=== PATIENT | female | born 1975 | race Caucasian/White ===

== ENCOUNTER 2017-07-15 10:42 | Emergency (ER) | payer BC, SELFPAY ==
[2017-07-15 11:05] VITALS: BP 143/85; PULSE 106; RESP 18; TEMP 36.6; O2SAT 96; BMI 44.3
[2017-07-15 11:33] VITALS: BP 143/85; PULSE 106; RESP 18; TEMP 36.6; O2SAT 96; BMI 44.3
[2017-07-15 12:09] VITALS: BP 143/85; PULSE 106; RESP 18; TEMP 36.6; O2SAT 96; BMI 44.3
[2017-07-15 12:29] LABS: Basophils # 0.1 K/mm3 (0-0.2); Basophils % 0.6 % (0.1-2.0); Eosinophils # 0.4 K/mm3 (0.0-0.4); Eosinophils % 3.6 % (0.1-12.0); Hematocrit 42.2 % (37.0-47.0); Hemoglobin 14.2 g/dL (12.2-16.2); Lymphocytes # 3.2 K/mm3 (0.7-4.5); Lymphocytes % 33.1 K/mm3 (10-50); Mean Corpuscular HGB Conc 33.7 g/dL (31.8-35.4); Mean Corpuscular Hemoglobin 30.9 pg (27.0-31.2); Mean Corpuscular Volume 91.6 fl (81-99); Mean Platelet Volume 9.2 fl (7.4-10.4); Monocytes # 0.5 K/mm3 (0.1-1.0); Neutrophils # 5.6 K/mm3 (1.8-7.8); Neutrophils % 57.8 % (37.0-80.0); Platelet Count 225 K/mm3 (142-424); Red Cell Distribution Width 13.5 % (11.5-17.5); White Blood Count 9.7 K/mm3 (4.8-10.8)
--- NOTE | 2017-07-15 12:32 | HMH.EDNECK ---
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 The time I documented below is in addition to time spent performing reported procedures but includes the following listed in this critical care notation. Medical Decision Making Vital Signs: 07/15/17 11:05 07/15/17 11:33 07/15/17 12:09 Temperature 97.8 F 97.8 F 97.8 F Temperature Source Temporal Artery Scan Temporal Artery Scan Oral Pulse Rate [Left Radial] 106 H 106 H 106 H Respiratory Rate 18 18 18 Blood Pressure [Left Arm] 143/85 143/85 143/85 Blood Pressure Mean [Left Arm] 104 104 104 Blood Pressure Source [Left Arm] Automatic Cuff Automatic Cuff Automatic Cuff Blood Pressure Position [Left Arm] Sitting Sitting Sitting 02 Sat by Pulse Oximetry 96 96 96 Oxygen Delivery Method Room Air Room Air Room Air - Lab Data Lab results reviewed: Yes: I reviewed the patient's lab results. Lab Results 07/15/17 12:15: WBC 9.7, RBC 4.60, Hgb 14.2, Hct 42.2, MCV 91.6, MCH 30.9, MCHC 33.7, RDW 13.5, Plt Count 225, MPV 9.2, Neut % (Auto) 57.8, Lymph % (Auto) 33.1, [place] % (Auto) 5.0, Eos % (Auto) 3.6, Baso % (Auto) 0.6, Neut # (Auto) 5.6, Lymph # (Auto) 3.2, [place] # (Auto) 0.5, Eos # (Auto) 0.4, Baso # (Auto) 0.1 07/15/17 12:15: Sodium 140, Potassium 3.3 L, Chloride 102, Carbon Dioxide 30, Anion Gap 11.3, BUN 13, Creatinine 0.81, Estimated Creat Clear 95, Estimated GFR 78, Est GFR ( Amer) 94, Glucose 154 H, Calcium 9.1, Total Bilirubin 0.4, AST 25, ALT 35, Alkaline Phosphatase 108, Total Protein 7.4, Albumin 3.6, Globulin 3.8 H, Albumin/Globulin Ratio 0.9 L Result diagrams: 07/15/17 12:15 07/15/17 12:15 Orders (Tests/Meds): ED MEDICATIONS Discontinued Medications Generic Name Dose Route Start Last Admin Trade Name Nona PRN Reason Stop Dose Admin Ketorolac Tromethamine 30 mg 07/15/17 12:32 07/15/17 13:34 Toradol 30mg/Ml Vial IV 07/15/17 12:33 30 mg ONCE ONE Administration - Hood Inquiry Pt receiving controlled substance: No Medical Decision Making Narrative: On reassessment, the patient's pain is completely relieved after administration of Toradol IM. Neck Pain/Injury HPI - General Chief Complaint: Neck Pain/Injury Stated Complaint: stiff neck headache Time Seen by Provider: 07/15/17 12:05 Source of Information: Patient Limitations: No Limitations Description of Symptoms (Recalled from ER Triage Doc. by RN): PT STATES THAT THURSDAY SHE WOKE UP WITH STIFF NECK AND A HEADACHE. NOW SHE REPORTS THAT HER PAIN IS A 12/10 AND SHE HAS NEVER HAD PAIN LIKE THIS BEFORE IN THE BACK OF HER HEAD TO THE RIGHT. PT STATES NO INJURY . - History of Present Illness HPI Narrative: Patient reports a history of chronic neck pain, for which she has seen her PCP as of last week. It is Dr. Dupree put her on a muscle relaxer which has helped somewhat. Eyes any acute trauma. She states that her pain was worse this morning, and she took one half of a muscle relaxer and some ibuprofen at about 2:00 this morning. Denies any fever, denies any rash, denies any acute neurological symptoms. He is mainly right-sided and is positional in nature with no weakness numbness or tingling. No photophobia. No change in location of her neck and posterior scalp pain. MD complaint: neck pain Onset (ago): month(s) Quality: other (spasm) Relieving factors: medication OTC/prescribed Exacerbating factors: movement of neck Ass
--- NOTE | 2017-07-15 12:36 | ED_ITS ---
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 The time I documented below is in addition to time spent performing reported procedures but includes the following listed in this critical care notation. Medical Decision Making Vital Signs: 07/15/17 11:05 07/15/17 11:33 07/15/17 12:09 Temperature 97.8 F 97.8 F 97.8 F Temperature Source Temporal Artery Scan Temporal Artery Scan Oral Pulse Rate [Left Radial] 106 H 106 H 106 H Respiratory Rate 18 18 18 Blood Pressure [Left Arm] 143/85 143/85 143/85 Blood Pressure Mean [Left Arm] 104 104 104 Blood Pressure Source [Left Arm] Automatic Cuff Automatic Cuff Automatic Cuff Blood Pressure Position [Left Arm] Sitting Sitting Sitting 02 Sat by Pulse Oximetry 96 96 96 Oxygen Delivery Method Room Air Room Air Room Air - Lab Data Lab results reviewed: Yes: I reviewed the patient's lab results. Lab Results 07/15/17 12:15: WBC 9.7, RBC 4.60, Hgb 14.2, Hct 42.2, MCV 91.6, MCH 30.9, MCHC 33.7, RDW 13.5, Plt Count 225, MPV 9.2, Neut % (Auto) 57.8, Lymph % (Auto) 33.1 , [place] % (Auto) 5.0, Eos % (Auto) 3.6, Baso % (Auto) 0.6, Neut # (Auto) 5.6, Lymph # (Auto) 3.2, [place] # (Auto) 0.5, Eos # (Auto) 0.4, Baso # (Auto) 0.1 07/15/17 12:15: Sodium 140, Potassium 3.3 L, Chloride 102, Carbon Dioxide 30, Anion Gap 11.3, BUN 13, Creatinine 0.81, Estimated Creat Clear 95, Estimated GFR 78, Est GFR ( Amer) 94, Glucose 154 H, Calcium 9.1, Total Bilirubin 0.4, AST 25, ALT 35, Alkaline Phosphatase 108, Total Protein 7.4, Albumin 3.6, Globulin 3.8 H, Albumin/Globulin Ratio 0.9 L Result diagrams: 07/15/17 12:15 07/15/17 12:15 Orders (Tests/Meds): ED MEDICATIONS Discontinued Medications Generic Name Dose Route Start Last Admin Trade Name Nona PRN Reason Stop Dose Admin Ketorolac Tromethamine 30 mg 07/15/17 12:32 07/15/17 13:34 Toradol 30mg/Ml Vial IV 07/15/17 12:33 30 mg ONCE ONE Administration - Hood Inquiry Pt receiving controlled substance: No Medical Decision Making Narrative: On reassessment, the patient's pain is completely relieved after administration of Toradol IM. Neck Pain/Injury HPI - General Chief Complaint: Neck Pain/Injury Stated Complaint: stiff neck headache Time Seen by Provider: 07/15/17 12:05 Source of Information: Patient Limitations: No Limitations Description of Symptoms (Recalled from ER Triage Doc. by RN): PT STATES THAT THURSDAY SHE WOKE UP WITH STIFF NECK AND A HEADACHE. NOW SHE REPORTS THAT HER PAIN IS A 12/10 AND SHE HAS NEVER HAD PAIN LIKE THIS BEFORE IN THE BACK OF HER HEAD TO THE RIGHT. PT STATES NO INJURY . - History of Present Illness HPI Narrative: Patient reports a history of chronic neck pain, for which she has seen her PCP as of last week. It is Dr. Dupree put her on a muscle relaxer which has helped somewhat.
[2017-07-15 12:58] LABS: Alanine Aminotransferase 35 U/L (12-78); Albumin Level 3.6 gm/dL (3.4-5.0); Albumin/Globulin Ratio 0.9 (1.1-1.8); Alkaline Phosphatase 108 U/L (46-116); Anion Gap 11.3 mEq/L (5-15); Aspartate Amino Transferase 25 U/L (15-37); Bilirubin,Total 0.4 mg/dL (0.2-1.0); Blood Urea Nitrogen 13 mg/dL (7-18); Calcium 9.1 mg/dL (8.5-10.1); Carbon Dioxide 30 mmol/L (21.0-32.0); Chloride 102 mmol/L (98-107); Creatinine Clearance Estimated 95 mL/min (0-300); Creatinine,Serum 0.81 mg/dL (0.55-1.02); Estimated Glomerular Filt Rate 78 ml/min (>60); GFR (African American) 94 ML/MIN (>60); Globulin 3.8 gm/dl (1.3-3.2); Glucose 154 mg/dL (74-106); Potassium 3.3 mmoL/L (3.5-5.1); Sodium 140 mmol/L (136-145); Total Protein,Serum 7.4 gm/dL (6.4-8.2)
[2017-07-15 15:31] VITALS: BP 143/85; PULSE 100; RESP 18; O2SAT 98
== END 2017-07-15 15:34 | disposition home or self-care (01) ==
LOC: UTC 11:18 → ER 11:58
PROVIDERS: Emergency Provider Emergency Medicine; Family Provider Internal Medicine; PCP Internal Medicine
DX: M54.2 Cervicalgia (principal); E11.9 Type 2 diabetes mellitus without complications
CPT/HCPCS: 80053; 85025; 96374; 99282; 99284

== ENCOUNTER → 2017-09-28 14:32 | Outpatient (CLI) | payer BC, SELFPAY ==
--- NOTE | 2017-09-28 14:41 | XR_ITS ---
EXAM: XR lumbar spine min 4V HISTORY: Pain following injury ITS.REASON: S/P FALL THIS AM,LOW BACK PAIN ORDERING PHYSICIAN: Jose Dupree PATIENT AGE: 42 years COMPARISON: None FINDINGS: Normal alignment. No fracture or dislocation. No lytic or blastic change. No significant degenerative change. The disc spaces are preserved. Minimal bony hypertrophic change involves the endplate at L4 IMPRESSION: No acute finding
--- NOTE | 2017-09-28 14:42 | XR_ITS ---
XR coccyx 2V CLINICAL INDICATION: Pain following injury ITS.REASON: S/P ALL THIS AM,LOW BACK PAIN ORDERING PHYSICIAN: Jose Dupree PATIENT AGE: 42 years COMPARISON: None FINDINGS: No obvious fracture, dislocation, or other significant anomalies. IMPRESSION: Negative coccyx
== END ==
PROVIDERS: PCP Internal Medicine; Visit Provider Internal Medicine
DX: M54.5 Low back pain (principal)
CPT/HCPCS: 72110; 72220

== ENCOUNTER 2017-12-04 23:58 | Observation (INO) ==
[2017-12-05 00:37] LABS: Basophils # 0.1 K/mm3 (0-0.2); Basophils % 0.6 % (0.1-2.0); Eosinophils # 0.4 K/mm3 (0.0-0.4); Eosinophils % 2.5 % (0.1-12.0); Hematocrit 50.2 % (37.0-47.0); Hemoglobin 16.1 g/dL (12.2-16.2); Lymphocytes # 2.9 K/mm3 (0.7-4.5); Mean Corpuscular HGB Conc 32.1 g/dL (31.8-35.4); Mean Corpuscular Hemoglobin 29.7 pg (27.0-31.2); Mean Corpuscular Volume 92.6 fl (81-99); Mean Platelet Volume 8.7 fl (7.4-10.4); Monocytes # 0.8 K/mm3 (0.1-1.0); Monocytes % 4.7 % (1.7-9.3); Neutrophils # 11.8 K/mm3 (1.8-7.8); Neutrophils % 74.2 % (37.0-80.0); Platelet Count 348 K/mm3 (142-424); Red Blood Count 5.42 M/mm3 (4.20-5.40); Red Cell Distribution Width 13.3 % (11.5-17.5)
[2017-12-05 00:51] LABS: Anion Gap 15.2 mEq/L (5-15); Blood Urea Nitrogen 24 mg/dL (7-18); Carbon Dioxide 27 mmol/L (21.0-32.0); Chloride 100 mmol/L (98-107); Glucose 182 mg/dL (74-106); Potassium 3.2 mmoL/L (3.5-5.1); Sodium 139 mmol/L (136-145)
[2017-12-05 01:18] LABS: Lymphocytes % 22 % (10-50); Monocytes % 5 % (2-9); Neutrophils % 73 % (42-76); Total Cells Counted 100
[2017-12-05 01:19] LABS: RBC Morphology Normal; Stomatocytes 1+
--- NOTE | 2017-12-05 01:36 | Emergency Department Note ---
ED Disposition Clinical Impression: Near syncope, Renal insufficiency Disposition: Admitted as Observation Condition on Discharge: Good Referrals: Jose Dupree [Primary Care Provider] - - Critical Care Critical Care Time: No Attestation: On 12/04/17, the high probability of a clinically significant, sudden or life threatening deterioration of the following system(s) required my full and direct attention, intervention and personal management. The time I documented below is in addition to time spent performing reported procedures but includes the following listed in this critical care notation. Medical Decision Making - Medical Records Medical records reviewed: Yes: I reviewed the patient's medical records. - Hood Inquiry Pt receiving controlled substance: No Vital Signs: 12/05/17 00:02 Temperature 98.1 F Temperature Source Oral Pulse Rate [Right Brachial] 118 H Respiratory Rate 16 Blood Pressure [Right Arm] 92/65 Blood Pressure Mean [Right Arm] 74 02 Sat by Pulse Oximetry 98 Oxygen Delivery Method Room Air - Lab Data Lab results reviewed: Yes: I reviewed the patient's lab results. Lab Results 12/05/17 00:22: WBC 16.0 H, RBC 5.42 H, Hgb 16.1, Hct 50.2 H, MCV 92.6, MCH 29.7 , MCHC 32.1, RDW 13.3, Plt Count 348, MPV 8.7, Neut % (Auto) 74.2, Lymph % (Auto ) 18.0, [place] % (Auto) 4.7, Eos % (Auto) 2.5, Baso % (Auto) 0.6, Neut # (Auto) 11.8 H, Lymph # (Auto) 2.9, [place] # (Auto) 0.8, Eos # (Auto) 0.4, Baso # (Auto) 0.1, Total Counted 100, Neutrophils % (Manual) 73, Lymphocytes % (Manual) 22, Monocytes % (Manual) 5, Platelet Estimate Normal, RBC Morphology Normal, Stomatocytes 1+ 12/05/17 00:22: Sodium 139, Potassium 3.2 L, Chloride 100, Carbon Dioxide 27, Anion Gap 15.2 H, BUN 24 H, Creatinine 2.18 H, Estimated Creat Clear 35, Estimated GFR 25 L, Est GFR ( Amer) 30 L, Glucose 182 H, Troponin I < 0.02 12/05/17 01:55: Urine Color Yellow, Urine Appearance Sl cloudy, Urine pH 5.5, Ur Specific [place] 1.020, Urine Protein 1+, Urine Glucose (UA) Negative, Urine Ketones Negative, Urine Blood Negative, Urine Nitrate Negative, Urine Bilirubin Negative, Urine Urobilinogen 0.2, Ur Leukocyte Esterase Negative Result diagrams: 12/05/17 00:22 12/05/17 00:22 Orders (Tests/Meds): ED MEDICATIONS Generic Name Dose Route Start Last Admin Trade Name Freq PRN Reason Stop Dose Admin Sodium Chloride 1,000 mls @ 999 mls/hr 12/05/17 01:30 12/05/17 01:18 Sod Chlor 0.9% 1000ml Bag IV 12/05/17 02:30 999 mls/hr .[id number] GARRICK Administration Discontinued Medications Generic Name Dose Route Start Last Admin Trade Name Freq PRN Reason Stop Dose Admin Sodium Chloride 1,000 mls @ 999 mls/hr 12/05/17 00:30 12/05/17 00:44 Sod Chlor 0.9% 1000ml Bag IV 12/05/17 01:30 999 mls/hr .Q1H1M GARRICK Administration ORDERS Category Date Time Status XR chest 2V Stat Exams 12/05/17 00:22 Taken UA [Urinalysis and Microscopic] Stat Lab 12/05/17 01:55 Results - Radiology Data #1 Image(s): Chest Image Reviewed: Yes I reviewed the patient's radiology image Preliminary Findings: Normal/NAD - ECG Data Tracing #1 I reviewed this ECG and interpreted as documented below: Arrhythmias present: sinus tach Ischemic changes: non-specific ST-T wave changes Tracing #2 I reviewed this ECG and interpreted as documented below: Normal Sinus Rhythm: Yes Ischemic changes: non-specific ST-T wave changes Dizzy HPI - General Chief Complaint: Dizziness Stated Complaint: Low BP;Heart Racing Time Seen by Provider: 12/05/17 00:30 Mode of Arrival: Ambulatory Source of Information: Patient, Medical Record Limitations: No Limitations Description of Symptoms (Recalled from ER Triage Doc. by RN): Pt was a work when she states she has a episode where everything went black, and she nearly passed out. Her BP was taken at work and was low, pt states her BP is usually high. Pt states she is dizzy, and denies CP or SOA. - History of Present Illness HPI Narrative: pt had not felt well and at work was having dizzy spells with near syncope and had low bp w/o loc or chest pain complaint: lightheadedness, near syncope Onset (ago): hour(s) Timing: waxing/waning Description: lightheadedness, near-syncope History of similar episodes: No History of trauma: No Severity: moderate Relieving factors: nothing Associated symptoms: denies other symptoms - Related Data Home Medications Medication Instructions Recorded Confirmed Lisinopril [Lisinopril 40mg Tablet] 40 mg PO DAILY 12/05/17 12/05/17 Metformin HCl [Metformin 500mg 500 mg PO DAILY 12/05/17 12/05/17 Tablet] Potassium 99 mg PO DAILY 12/05/17 12/05/17 Venlafaxine HCl [Effexor Xr] 150 mg PO DAILY 12/05/17 12/05/17 hydroCHLOROthiazide 12.5 mg PO DAILY 12/05/17 12/05/17 [Hydrochlorothiazide 12.5mg Tab] Previous Rx's Medication Instructions Recorded Naproxen [EC-Naprosyn] 500 mg PO BID PRN #20 tablet. 07/15/17 Allergies Allergy/AdvReac Type Severity Reaction Status Date / Time No Known Allergies Allergy Verified 12/05/17 00:10 [facility] History I have reviewed the patient's past medical history: Yes 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: Reports:: Diabetes Mellitus Type 2 - Social History Smoking Status: Light tobacco smoker Alcohol Intake: never - Psychiatric History Expresses thoughts of harming self/others: None Suicide Plan Description: No Plan ROS Obtained: Yes All systems reviewed & no additional complaints - Constitutional Constitutional: Denies fever(s) - Eyes Eyes: Denies change in vision - ENT Ears, Nose, Mouth, and Throat: Denies sore throat - Cardiovascular Cardiovascular: Denies chest pain at rest, Reports lightheadedness, Denies palpitations, Reports rapid heart rate - Respiratory Respiratory: No cough - Gastrointestinal Gastrointestingal: Denies: abdominal pain - Genitourinary Female Genitourinary: Denies hematuria - Musculoskeletal Musculoskeletal: Denies joint pain, Denies joint swelling - Integumentary/Breasts Skin/Breast: Denies rash - Neurologic Neurologic: Denies headache(s), Denies seizure-like activity Physical Exam - General General appearance: in no apparent distress - Head Head exam: normocephalic - Eye Eye exam: Present: PERRL, EOMI. Absent: scleral icterus - ENT ENT exam: Present: mucous membranes dry - Neck Neck exam: Present: trachea midline - Respiratory Respiratory exam: Absent: respiratory distress - Cardiovascular Cardiovascular exam: Present: regular rate, systolic murmur - Abdominal Exam Abdominal exam: Present: soft - Extremities Exam Extremities exam: Absent: tenderness - Neurological Exam Neurological exam: Present: alert, oriented X3, CN II-XII intact - Psychiatric Psychiatric exam: Present: normal affect - Skin Skin exam: Absent: rash
[2017-12-05 02:01] LABS: Microscopic, Urine URINE MICROSCOPIC (MICROSCOPIC)
[2017-12-05 02:02] LABS: Appearance,Urine SL CLOUDY (Clear); Bilirubin,Urine Negative (Negative); Blood, Urine Negative (Negative); Color,Urine YELLOW (Yellow); Glucose,Urine (UA) Negative (Negative); Ketones,Urine Negative (Negative); PH,Urine 5.5 (5.0-8.5); Protein,Urine 1+ (Negative)
[2017-12-05 02:03] LABS: Leukocyte Esterase,Urine Negative (Negative); Urobilinogen,Urine 0.2 EU/dl (0.2)
[2017-12-05 02:36] LABS: Chol/HDL Ratio 7.3 (1-3.5); Cholesterol 235 mg/dL (140-200); HDL Cholesterol 32 mg/dL (29-89)
[2017-12-05 02:37] LABS: Bacteria,Urine 2+ /lpf; RBC,Urine Occasional #/hpf (0-3); Squamous Epithelial Cell,Urine 20-50 #/hpf (0-5); WBC,Urine Occasional #/hpf (0-3)
[2017-12-05 02:37] LABS: Triglycerides 419 mg/dL (30-200)
[2017-12-05 02:46] LABS: Albumin Level 3.8 gm/dL (3.4-5.0); Bilirubin,Direct 0.1 mg/dL (0.0-0.2); Bilirubin,Indirect 0.3 mg/dL (0.0-0.9); Bilirubin,Total 0.4 mg/dL (0.2-1.0); T4 (Thyroxine) 11.8 ug/dl (4.7-13.3); Thyroid Stimulating Hormone 9.63 uIU/ml (0.358-3.740); Total Protein,Serum 8.4 gm/dL (6.4-8.2)
[2017-12-05 06:21] LABS: Basophils # 0.1 K/mm3 (0-0.2); Basophils % 0.6 % (0.1-2.0); Eosinophils # 0.4 K/mm3 (0.0-0.4); Eosinophils % 2.9 % (0.1-12.0); Hematocrit 45.2 % (37.0-47.0); Hemoglobin 14.6 g/dL (12.2-16.2); Lymphocytes # 3.7 K/mm3 (0.7-4.5); Lymphocytes % 26.4 K/mm3 (10-50); Mean Corpuscular HGB Conc 32.3 g/dL (31.8-35.4); Mean Corpuscular Hemoglobin 30.1 pg (27.0-31.2); Mean Corpuscular Volume 93.1 fl (81-99); Mean Platelet Volume 8.6 fl (7.4-10.4); Monocytes # 0.6 K/mm3 (0.1-1.0); Monocytes % 4.1 % (1.7-9.3); Neutrophils # 9.1 K/mm3 (1.8-7.8); Platelet Count 294 K/mm3 (142-424); Red Blood Count 4.85 M/mm3 (4.20-5.40); Red Cell Distribution Width 13.3 % (11.5-17.5); White Blood Count 13.8 K/mm3 (4.8-10.8)
--- NOTE | 2017-12-05 06:31 | H&P/Discharge Summary ---
General - General Admission date:: 12/05/17 Discharge date: 12/05/17 *Admission Date: 12/04/17 *Chief complaint: Weakness and low blood pressure *History of present illness: 42-year-old white female was at work yesterday at the [employer] when she began to feel poorly, felt somewhat dizzy and noticed that her blood pressure was lower than it typically is in the 110 range. She continue to work but became increasingly dizzy and fatigued, the occupational health and safety officer at her workplace took her blood pressure again and she was hypotensive in the high 80s low 90s. She was brought to the emergency department where she was noticed to have hypokalemia, renal insufficiency and low blood pressure. Otherwise exam and labs were unremarkable except for minimal leukocytosis. She was admitted to hospital for IV fluids and her blood pressure medicine has been held. [facility] History I have reviewed the patient's past medical history: Yes 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: Reports:: Diabetes Mellitus Type 2, Hypertension Denies:: Cancer, Diabetes Mellitus Type 1, Internal Pacemaker, MRSA Other Surgeries: No: Pacemaker Amputation: No Fractures: Yes - *Social History Educational Level: Completed High School Smoking Status: Light tobacco smoker Tobacco Type: cigarettes # Packs/Day (cigarettes): 1 Alcohol Intake: never Occupational Status: employed Housing: house Household Members: spouse - Psychiatric History Expresses thoughts of harming self/others: None Suicide Plan Description: No Plan *Family Hx:: Cancer, Diabetes, Heart Attack Review of Systems - Review of Systems Review of systems:: pertinent systems reviewed and negative unless documented below Overall patient has negative review of systems except for weakness and dizziness. Denies cardiac or pulmonary symptoms Denies GI symptoms except for mild nausea. No vomiting or diarrhea. Does have occasional heartburn. 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 - *Neurologic Denies headache(s), Denies seizure-like activity Exam Vital signs and Labs for Last 24 Hours: Temp Pulse Resp BP Pulse Ox 97.4 F L 74 18 129/73 100 12/05/17 04:34 12/05/17 04:34 12/05/17 04:34 12/05/17 04:34 12/05/17 04:34 Laboratory Results - last 24 hr 12/05/17 00:20: Total Bilirubin 0.4, Direct Bilirubin 0.1, Indirect Bilirubin 0.3, AST 24, ALT 31, Alkaline Phosphatase 111, Total Protein 8.4 H, Albumin 3.8 , TSH 9.63 H, Thyroxine (T4) 11.8 12/05/17 00:20: Hemoglobin A1c 6.5 12/05/17 00:20: Triglycerides 419 H, Cholesterol 235 H, HDL Cholesterol 32, Cholesterol/HDL Ratio 7.3 H 12/05/17 00:22: WBC 16.0 H, RBC 5.42 H, Hgb 16.1, Hct 50.2 H, MCV 92.6, MCH 29.7 , MCHC 32.1, RDW 13.3, Plt Count 348, MPV 8.7, Neut % (Auto) 74.2, Lymph % (Auto ) 18.0, [place] % (Auto) 4.7, Eos % (Auto) 2.5, Baso % (Auto) 0.6, Neut # (Auto) 11.8 H, Lymph # (Auto) 2.9, [place] # (Auto) 0.8, Eos # (Auto) 0.4, Baso # (Auto) 0.1, Total Counted 100, Neutrophils % (Manual) 73, Lymphocytes % (Manual) 22, Monocytes % (Manual) 5, Platelet Estimate Normal, RBC Morphology Normal, Stomatocytes 1+ 12/05/17 00:22: Sodium 139, Potassium 3.2 L, Chloride 100, Carbon Dioxide 27, Anion Gap 15.2 H, BUN 24 H, Creatinine 2.18 H, Estimated Creat Clear 35, Estimated GFR 25 L, Est GFR ( Amer) 30 L, Glucose 182 H, Troponin I < 0.02 12/05/17 01:55: Urine Color Yellow, Urine Appearance Sl cloudy, Urine pH 5.5, Ur Specific [place] 1.020, Urine Protein 1+, Urine Glucose (UA) Negative, Urine Ketones Negative, Urine Blood Negative, Urine Nitrate Negative, Urine Bilirubin Negative, Urine Urobilinogen 0.2, Ur Leukocyte Esterase Negative, Urine RBC Occasional, Urine WBC Occasional, Ur Squamous Epith Cells 20-50, Urine Bacteria 2+, Hyaline Casts 5-10 12/05/17 02:50: Troponin I < 0.02 I & O for Last 24 hours: Intake & Output 12/02/17 12/03/17 12/04/17 12/05/17 11:59 11:59 11:59 11:59 Intake Total 177 / 177 Balance 177 / 177 Weight 294 lb 7 oz Narrative: Patient is pink, alert, oropharynx clear, lungs clear, heart rate regular. Abdomen soft and nontender. No edema, clubbing or cyanosis. Neurologic exam intact including cranial nerves in her extremity power. Hospital Course Hospital Course: Patient was admitted overnight, IV fluids were given, antihypertensives were held. This morning she is doing very nicely. Has no complaints. Wishes to go home. Plan will be to discharge her home if labs this morning have improved. We will recommend holding HCTZ and having close follow-up with her primary care motion pictures cartoonist early next week. Results Labs on day of discharge: Labs from last 24 hours 12/05/17 12/05/17 12/05/17 02:50 01:55 00:22 WBC RBC Hgb Hct MCV MCH MCHC RDW Plt Count MPV Neut % (Auto) Lymph % (Auto) [place] % (Auto) Eos % (Auto) Baso % (Auto) Neut # (Auto) Lymph # (Auto) [place] # (Auto) Eos # (Auto) Baso # (Auto) Total Counted Neutrophils % (Manual) Lymphocytes % (Manual) Monocytes % (Manual) Platelet Estimate RBC Morphology Stomatocytes Sodium 139 Potassium 3.2 L Chloride 100 Carbon Dioxide 27 Anion Gap 15.2 H BUN 24 H Creatinine 2.18 H Estimated Creat Clear 35 Estimated GFR 25 L Est GFR ( Amer) 30 L Glucose 182 H Hemoglobin A1c Total Bilirubin Direct Bilirubin Indirect Bilirubin AST ALT Alkaline Phosphatase Troponin I < 0.02 < 0.02 Total Protein Albumin Triglycerides Cholesterol HDL Cholesterol Cholesterol/HDL Ratio TSH Thyroxine (T4) Urine Color Yellow Urine Appearance Sl cloudy Urine pH 5.5 Ur Specific [place] 1.020 Urine Protein 1+ Urine Glucose (UA) Negative Urine Ketones Negative Urine Blood Negative Urine Nitrate Negative Urine Bilirubin Negative Urine Urobilinogen 0.2 Ur Leukocyte Esterase Negative Urine RBC Occasional Urine WBC Occasional Ur Squamous Epith Cells 20-50 Urine Bacteria 2+ Hyaline Casts 5-10 12/05/17 12/05/17 12/05/17 00:22 00:20 00:20 WBC 16.0 H RBC 5.42 H Hgb 16.1 Hct 50.2 H MCV 92.6 MCH 29.7 MCHC 32.1 RDW 13.3 Plt Count 348 MPV 8.7 Neut % (Auto) 74.2 Lymph % (Auto) 18.0 [place] % (Auto) 4.7 Eos % (Auto) 2.5 Baso % (Auto) 0.6 Neut # (Auto) 11.8 H Lymph # (Auto) 2.9 [place] # (Auto) 0.8 Eos # (Auto) 0.4 Baso # (Auto) 0.1 Total Counted 100 Neutrophils % (Manual) 73 Lymphocytes % (Manual) 22 Monocytes % (Manual) 5 Platelet Estimate Normal RBC Morphology Normal Stomatocytes 1+ Sodium Potassium Chloride Carbon Dioxide Anion Gap BUN Creatinine Estimated Creat Clear Estimated GFR Est GFR ( Amer) Glucose Hemoglobin A1c 6.5 Total Bilirubin Direct Bilirubin Indirect Bilirubin AST ALT Alkaline Phosphatase Troponin I Total Protein Albumin Triglycerides 419 H Cholesterol 235 H HDL Cholesterol 32 Cholesterol/HDL Ratio 7.3 H TSH Thyroxine (T4) Urine Color Urine Appearance Urine pH Ur Specific [place] Urine Protein Urine Glucose (UA) Urine Ketones Urine Blood Urine Nitrate Urine Bilirubin Urine Urobilinogen Ur Leukocyte Esterase Urine RBC Urine WBC Ur Squamous Epith Cells Urine Bacteria Hyaline Casts 12/05/17 00:20 WBC RBC Hgb Hct MCV MCH MCHC RDW Plt Count MPV Neut % (Auto) Lymph % (Auto) [place] % (Auto) Eos % (Auto) Baso % (Auto) Neut # (Auto) Lymph # (Auto) [place] # (Auto) Eos # (Auto) Baso # (Auto) Total Counted Neutrophils % (Manual) Lymphocytes % (Manual) Monocytes % (Manual) Platelet Estimate RBC Morphology Stomatocytes Sodium Potassium Chloride Carbon Dioxide Anion Gap BUN Creatinine Estimated Creat Clear Estimated GFR Est GFR ( Amer) Glucose Hemoglobin A1c Total Bilirubin 0.4 Direct Bilirubin 0.1 Indirect Bilirubin 0.3 AST 24 ALT 31 Alkaline Phosphatase 111 Troponin I Total Protein 8.4 H Albumin 3.8 Triglycerides Cholesterol HDL Cholesterol Cholesterol/HDL Ratio TSH 9.63 H Thyroxine (T4) 11.8 Urine Color Urine Appearance Urine pH Ur Specific [place] Urine Protein Urine Glucose (UA) Urine Ketones Urine Blood Urine Nitrate Urine Bilirubin Urine Urobilinogen Ur Leukocyte Esterase Urine RBC Urine WBC Ur Squamous Epith Cells Urine Bacteria Hyaline Casts DS: Diagnosis - Discharge Diagnosis (1) Near syncope Status: Acute (2) Renal insufficiency Status: Acute Discharge Medications Discharge Medications: Home Medications Medication Instructions Recorded Confirmed Type Lisinopril [Lisinopril 40mg Tablet] 40 mg PO DAILY 12/05/17 12/05/17 History Metformin HCl [Metformin 500mg 1,000 mg PO DAILY 12/05/17 12/05/17 History Tablet] Potassium Chloride [Pot Chlor 10 10 meq PO DAILY 12/05/17 12/05/17 History mEq Tab] Venlafaxine HCl [Effexor Xr] 150 mg PO DAILY 12/05/17 12/05/17 History hydroCHLOROthiazide 12.5 mg PO DAILY 12/05/17 12/05/17 History [Hydrochlorothiazide 12.5mg Tab]
[2017-12-05 06:36] LABS: Anion Gap 15.7 mEq/L (5-15); Phosphorous 5.4 mg/dL (2.4-4.9); Potassium 3.7 mmoL/L (3.5-5.1)
[2017-12-05 07:16] VITALS: BP 142/82
== END 2017-12-05 09:15 | disposition home or self-care (01) ==
LOC: 2ND 23:58 → ER 23:58 → 2ND 12-05 02:46
PROVIDERS: ADMIT Emergency Medicine; ATTEND Internal Medicine Adolescent Medicine
CPT/HCPCS: 36415; 71020; 71046; 80048; 80061; 80076; 81001; 82962; 83036; 83735; 84100; 84436; 84443; 84484; 85007; 85025; 87086; 93005; 96365; 96366; 99284; G0378

== ENCOUNTER → 2018-10-09 10:16 | Outpatient (CLI) | payer BC, SELFPAY ==
[2018-10-09 10:30] LABS: Basophils # 0.1 K/mm3 (0-0.2); Basophils % 0.7 % (0.1-2.0); Eosinophils # 0.5 K/mm3 (0.0-0.4); Eosinophils % 4.4 % (0.1-12.0); Hematocrit 45.8 % (37.0-47.0); Hemoglobin 15.7 g/dL (12.2-16.2); Lymphocytes # 3.1 K/mm3 (0.7-4.5); Lymphocytes % 30.2 % (10-50); Mean Corpuscular HGB Conc 34.2 g/dL (31.8-35.4); Mean Corpuscular Hemoglobin 31.5 pg (27.0-31.2); Mean Corpuscular Volume 92.1 fl (81-99); Mean Platelet Volume 9.1 fl (7.4-10.4); Monocytes # 0.4 K/mm3 (0.1-1.0); Neutrophils # 6.3 K/mm3 (1.8-7.8); Neutrophils % 60.6 % (37.0-80.0); Platelet Count 241 K/mm3 (142-424); Red Blood Count 4.98 M/mm3 (4.20-5.40); Red Cell Distribution Width 13.2 % (11.5-17.5); White Blood Count 10.3 K/mm3 (4.8-10.8)
[2018-10-09 10:56] LABS: Anion Gap 10.7 mEq/L (5-15); Blood Urea Nitrogen 13 mg/dL (7-18); Calcium 9.3 mg/dL (8.5-10.1); Carbon Dioxide 31 mmol/L (21.0-32.0); Chloride 101 mmol/L (98-107); Creatinine,Serum 0.92 mg/dL (0.55-1.02); Estimated Glomerular Filt Rate 67 ml/min (>60); Free T4 (Free Thyroxine) 0.94 ng/dl (0.76-1.46); GFR (African American) 81 ML/MIN (>60); Glucose 216 mg/dL (74-106); Potassium 3.7 mmoL/L (3.5-5.1); Sodium 139 mmol/L (136-145); Thyroid Stimulating Hormone 3.16 uIU/ml (0.358-3.740)
== END ==
PROVIDERS: Visit Provider Internal Medicine
DX: R00.0 Tachycardia, unspecified (principal); R42 Dizziness and giddiness; I10 Essential (primary) hypertension
CPT/HCPCS: 36415; 80048; 84439; 84443; 85025; 93005

== ENCOUNTER → 2019-07-16 11:24 | Outpatient (CLI) | payer BC, SELFPAY ==
--- NOTE | 2019-07-16 11:34 | XR_ITS ---
PROCEDURE: XR KNEE RT 3V CLINICAL INDICATION: RIGHT KNEE PAIN COMPARISON: KNEE3L KNEE-3 VIEWS-LT from 08/12/2016 FINDINGS: No fracture or dislocation. No lytic or blastic change. There is normal mineralization. There are mild osteoarthritic changes involving all 3 compartments. Other findings:None. IMPRESSION: Mild osteoarthritis Dictated by: Antwan Duncan MD 07/16/2019 12:18 Electronically signed by Antwan Duncan MD in [place] 07/16/2019 12:18
== END ==
PROVIDERS: PCP Internal Medicine; Visit Provider Internal Medicine
DX: M25.561 Pain in right knee (principal)
CPT/HCPCS: 73562

== ENCOUNTER → 2019-08-01 13:47 | Outpatient (CLI) | payer BC, SELFPAY ==
--- NOTE | 2019-08-01 14:30 | XR_ITS ---
PROCEDURE: XR KNEE RT 4V CLINICAL INDICATION: right knee pain COMPARISON: [id number] KNEE-3 VIEWS-LT from 08/12/2016 XR KNEE RT 3V from 07/16/2019 FINDINGS: No fracture or dislocation. No lytic or blastic change. There is normal mineralization. Minimal osteoarthritic changes are present at the medial compartment and to lesser degree at the lateral compartment and patellofemoral joint overall not significantly changed. Other findings:None. IMPRESSION: Mild osteoarthritis Dictated by: Antwan Duncan MD 08/01/2019 17:24 Electronically signed by Antwan Duncan MD in [place] 08/01/2019 17:24
== END ==
PROVIDERS: PCP Internal Medicine; Visit Provider Orthopaedic Surgery
DX: M25.561 Pain in right knee (principal)
CPT/HCPCS: 73564

== ENCOUNTER → 2019-08-09 12:46 | Outpatient (CLI) | payer BC, SELFPAY ==
--- NOTE | 2019-08-09 12:48 | MR_ITS ---
PROCEDURE: MR KNEE RT WO CON CLINICAL INDICATION: evaluate for right knee meniscal tear right knee pain, posterior knee pain, instability COMPARISON: XR KNEE RT 4V from 08/01/2019 TECHNIQUE: Routine multiplanar multi echo sequences are performed without gadolinium enhancement. FINDINGS: Cruciate ligaments, collateral ligaments, patellar tendon, and quadriceps tendon have an unremarkable appearance. There is a nondisplaced horizontal tear involving the posterior horn of the medial meniscus. There is mild medial extrusion the body of the medial meniscus medially with resultant decrease in the knee joint space. The patellar cartilage is preserved. Prominent varicosities are noted along the medial aspect of the knee. There is minimal spurring along the medial compartment. No significant effusion. There is a small amount of edema along the the medial aspect of the medial femoral condyle IMPRESSION: 1. Nondisplaced horizontal tear involves the posterior horn of the medial meniscus. 2. Mild osteoarthritic changes. There is a small amount of soft tissue edema along the medial aspect of the medial femoral condyle posteriorly Dictated by: Antwan Duncan MD 08/11/2019 10:09 Electronically signed by Antwan Duncan MD in [place] 08/11/2019 10:09
== END ==
PROVIDERS: PCP Internal Medicine; Visit Provider Orthopaedic Surgery
DX: G89.29 Other chronic pain (principal); M25.561 Pain in right knee
CPT/HCPCS: 73721

== ENCOUNTER → 2019-08-19 11:59 | Outpatient (CLI) | payer BC, SELFPAY ==
--- NOTE | 2019-08-19 12:17 | XR_ITS ---
PROCEDURE: XR CHEST 2V CLINICAL HISTORY: HTN, PREOP COMPARISON: CXR2V XR chest 2V from 12/05/2017 FINDINGS: The cardiomediastinal silhouette and pulmonary vascularity are within normal limits. The lungs are clear without infiltrates, suspicious nodules, or pleural effusions. No acute bony abnormalities. IMPRESSION: No change with no acute finding Dictated by: Antwan Duncan MD 08/19/2019 12:45 Electronically signed by Antwan Duncan MD in [place] 08/19/2019 12:45
--- NOTE | 2019-08-19 12:44 | ECG_ITS ---
APPROVED REPORT Exam: Resting ECG HR:76 bpm ECG Measurements Heart Rate 76 AXES VT 184 P 55 QRSd 90 QRS 3 QT 400 T 35 QTc 450 <Conclusion> Normal sinus rhythm Possible Left atrial enlargement Low voltage QRS Borderline ECG Electronically signed by : Jose Dupree, 08/19/2019 19:00:54
[2019-08-19 13:47] LABS: Basophils % 0.6 % (0.1-2.0); Eosinophils # 0.3 K/mm3 (0.0-0.4); Eosinophils % 4.3 % (0.1-12.0); Hematocrit 43.8 % (37.0-47.0); Hemoglobin 13.9 g/dL (12.2-16.2); Lymphocytes # 1.9 K/mm3 (0.7-4.5); Lymphocytes % 23.4 % (10-50); Mean Corpuscular HGB Conc 31.8 g/dL (31.8-35.4); Mean Corpuscular Hemoglobin 30.1 pg (27.0-31.2); Mean Corpuscular Volume 94.9 fl (81-99); Mean Platelet Volume 10.9 fl (7.4-10.4); Monocytes # 0.5 K/mm3 (0.1-1.0); Monocytes % 6.6 % (1.7-9.3); Neutrophils # 5.2 K/mm3 (1.8-7.8); Neutrophils % 65.2 % (37.0-80.0); Platelet Count 224 K/mm3 (142-424); Red Blood Count 4.62 M/mm3 (4.20-5.40); Red Cell Distribution Width 14.5 % (11.5-17.5); White Blood Count 7.9 K/mm3 (4.8-10.8)
[2019-08-19 15:03] LABS: Alanine Aminotransferase 49 U/L (9-52); Albumin Level 3.1 g/dL (3.4-5.0); Albumin/Globulin Ratio 0.9 (1.1-1.8); Alkaline Phosphatase 139 U/L (46-116); Anion Gap 14.8 mEq/L (5-15); Aspartate Amino Transferase 69 U/L (15-37); Bilirubin,Total 0.5 mg/dL (0.2-1.0); Blood Urea Nitrogen 7 mg/dL (7-18); Calcium 8.8 mg/dL (8.5-10.1); Carbon Dioxide 26 mmol/L (21.0-32.0); Chloride 103 mmol/L (98-107); Creatinine,Serum 0.67 mg/dL (0.55-1.02); Estimated Glomerular Filt Rate 96 ml/min (>60); GFR (African American) 116 ML/MIN (>60); Globulin 3.5 gm/dl (1.3-3.2); Glucose 234 mg/dL (74-106); Potassium 3.8 mmoL/L (3.5-5.1); Sodium 140 mmol/L (137-145); Total Protein,Serum 6.6 g/dL (6.4-8.2)
[2019-08-19 17:24] LABS: Hemoglobin A1C 9.2 % (0.0-7.0)
== END ==
PROVIDERS: Visit Provider Orthopaedic Surgery
DX: Z01.818 Encounter for other preprocedural examination (principal); S83.241A Other tear of medial meniscus, current injury, right knee, initial encounter
CPT/HCPCS: 36415; 71046; 80053; 83036; 85025; 93005

== ENCOUNTER → 2019-10-31 10:31 | Outpatient (CLI) | payer BC, SELFPAY ==
--- NOTE | 2019-10-31 | CA_ITS ---
APPROVED REPORT Right Lower Extremity Venous Study for DVT. Plate Maker: Essence Cortes, RVT Indications Varicose Veins Pt had rt knee surgery 08/25, has inflammed veins medial rt knee Risk Factors Obesity Post OP Vein Imaging CFV (R): compressive, spontaneous, phasic, augmentation FEM (R): compressive, spontaneous, phasic, augmentation POP (R): compressive, spontaneous, phasic, augmentation PTV (R): Compressible GSV (R): Compressible Peroneals (R):Compressible GAS (R): Compressible Conclusion Study suggests no evidence of DVT of the right lower extremity. Study suggests a SVT in the distal medial right thigh. Critical Notification Physician Notified Date: 10/31/2019 Time: 11:04 Physician Name: Ofelia Dupree office Electronically signed by : Antwan Duncan MD 10/31/2019 15:30:22
== END ==
PROVIDERS: PCP Internal Medicine; Visit Provider Internal Medicine
DX: M79.604 Pain in right leg (principal)
CPT/HCPCS: 93971

== ENCOUNTER → 2019-12-09 11:18 | Outpatient (CLI) | payer BC, SELFPAY ==
[2019-12-10 13:37] LABS: Covid-19 Nasal PCR Sendout Lex Not Detected
== END ==
PROVIDERS: Visit Provider Internal Medicine
DX: Z03.818 Encounter for observation for suspected exposure to other biological agents ruled out (principal)
CPT/HCPCS: 36415; U0004

== ENCOUNTER 2019-12-14 10:00 | Outpatient (RCR) | payer BC, SELFPAY ==
--- NOTE | 2019-10-03 11:14 | HMH.PTOPEV ---
PT Outpatient Evaluation Rehab PT Outpatient Evaluation Start: 10/03/19 09:57 Freq: Status: Active Protocol: Document 10/03/19 10:49 ORQUIDEA (Rec: 10/03/19 11:14 PHORNE [id number]) Electronically Signed By Abhi Munoz, PT 10/03/19 10:49 Outpatient Therapy Subjective History Subjective History Pt is 44 yowf who presents ~ 1 mo S/P R partial medial menisectomy with medial plica resection and chondroplasty. She reports continued stiffness and pain, especially with stairs or walking uphill . She reports she is concerned about being able to return to work at [employer]. She reports continued edema as well with obvious varicosities throughout the R LE. She has PMH of anxiety, depression, DM -II, HTN. Chief Complaint Pain,Stiff Symptom Type Sharp,Stabbing Symptoms Relieved By Rest/Positioning,Ice Symptoms Aggravated By Physical Activity,Twisting, Walking Prior Functional Limitations None Current Functional Limitations Standing,Squatting,Walking Symptom Description Intermittent,Activity Dependent Level of pain today (0-10) 3 Pain scale - at its worst (0-10) 7 Hip/Knee Eval Gait Observation General Gait Pattern Observation Antalgic Gait Palpation Tenderness right Knee Palpation Finding Tenderness Knee Palpation Overall Comment medial jt line MMT Knee Extension Strength Grade 4 Good Knee Flexion Strength Grade 4 Good ROM Knee Extension Active Range of Motion ( -4 degrees) Knee Extension Passive Range of Motion ( -3 degrees) Knee Flexion Active Range of Motion ( 4-103 degrees) Knee Flexion Passive Range of Motion ( 3-113 degrees) Outpatient Therapy Assessment Impairments Problems/Impairmments Palpation Tenderness,Impaired Range of Motion,Impaired Strength,Impaired Endurance, Impaired Gait Pattern,Impaired Walking,Impaired Stair Climbing,Impaired Incline Stepping,Increased Edema, Subjective C/O Pain,Impaired Self Care/Self Management Prognosis Rehab Potential Good Clinical Impressi
--- NOTE | 2019-11-15 11:24 | HMH.RHREAS ---
Rehab Reassessment Rehab OP Re-assessment Start: 11/15/19 11:17 Freq: Status: Active Protocol: Document 11/15/19 11:19 ORQUIDEA (Rec: 11/15/19 11:24 PHOKENN [id number]) Electronically Signed By Abhi Munoz, PT 11/15/19 11:19 Rehab Re-assessment Subjective Subjective Pt reports she feels better overall, clicking in her knee is worse with walking downhill . Objective Objective Notes AROM R knee: 0-114. MMT R LE hams 4/5, Quad 4+/5 Assessment Progress Assessment Progressing as Expected Assessment Notes Pt with much improved ROM, strength needs to continue to increase. Some clicking noted worse with walking. Patient goals met ST,2,3,4,5 Goals Not Met LT,2,3,4,5,6 Revised Goals none Plan Plan Continue per initial POC. Frequency of Therapy 2x/wk Duration of therapy 8 wks Time and Billing Re-Eval Time 15 Re-Eval Billing Units 1 PHYSICIAN CERTIFICATION: I certify the specified therapy services for Bethany Wesley are required, authorized, and reviewed every 30 days.
== END 2019-12-14 10:05 | disposition home or self-care (01) ==
LOC: PT 10:00
PROVIDERS: PCP Internal Medicine; Visit Provider Orthopaedic Surgery
DX: S83.241D Other tear of medial meniscus, current injury, right knee, subsequent encounter (principal)
CPT/HCPCS: 97010; 97014; 97016; 97033; 97110; 97140; 97163; 97164; 97530; G0283

== ENCOUNTER → 2020-11-13 10:57 | Outpatient (CLI) | payer BC, SELFPAY ==
--- NOTE | 2020-11-13 11:02 | XR_ITS ---
PROCEDURE: XR LUMBAR SPINE MIN 4V CLINICAL INDICATION: LOW BACK PAIN,ELYSE LEG PAIN COMPARISON: CR [id number] XR lumbar spine min 4V from 09/28/2017 FINDINGS: Minor multilevel degenerative changes of the lumbar spine with endplate sclerosis and minor anterior osteophyte formation. There is facet joint arthropathy, worse in the lower lumbar levels. Vertebral body heights and alignment are otherwise maintained. No acute fractures or traumatic subluxation. Bone density is normal. Paravertebral soft tissues are unremarkable. IMPRESSION: No acute fractures or traumatic subluxation. Dictated by: Flory Mathew 11/13/2020 12:00 Flory Mathew in [place] 11/13/2020 12:00
--- NOTE | 2020-11-13 12:54 | MR_ITS ---
PROCEDURE: MR LUMBAR SPINE WO CON CLINICAL INDICATION: LEG WEAKNESS AND PAIN COMPARISON: MR MR KNEE RT WO CON from 08/09/2019 TECHNIQUE: Standard multiplanar multiecho sequences are performed without contrast. 3-D MIP and myelographic images are also rendered and reviewed FINDINGS: Normal lumbar lordosis is noted. Vertebral body heights and alignment are maintained. Intervertebral disc spaces are within normal limits without significant disc bulges. Bone marrow signal intensity is within normal limits without evidence of marrow infiltrative process. 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 The paravertebral soft tissues are unremarkable. Further details as described below T12-L1: No canal or foraminal stenosis. L1-2: Minor facet joint arthropathy without significant canal or foraminal narrowing. L2-3: Minor facet joint arthropathy without significant canal or foraminal narrowing. L3-4: Minor facet joint and ligamentum flavum hypertrophy causes posterior thecal sac indentation. No significant in aloe foraminal narrowing. L4-5: Bilateral facet joint and ligamentum flavum hypertrophy causes posterior thecal sac indentation. Mild bilateral foraminal narrowing is noted. L5-S1: Small disc bulge and bilateral facet joint hypertrophy causes mild canal narrowing. No significant foraminal narrowing is noted. IMPRESSION: Minor degenerative changes of the lower lumbar spine without significant canal or foraminal narrowing. Dictated by: Flory Mathew 11/13/2020 14:12 Flory Mathew in [place] 11/13/2020 14:12
== END ==
PROVIDERS: PCP Internal Medicine; Visit Provider Internal Medicine
DX: M54.5 Low back pain (principal); M79.662 Pain in left lower leg; M79.661 Pain in right lower leg; R53.1 Weakness
CPT/HCPCS: 72110; 72148; 76376

== ENCOUNTER 2020-12-24 09:00 | Outpatient (RCR) | payer BC, SELFPAY ==
--- NOTE | 2020-12-12 10:50 | HMH.PTOPEV ---
PT Outpatient Evaluation Rehab PT Outpatient Evaluation Start: 12/12/20 08:59 Freq: Status: Active Protocol: Document 12/12/20 10:39 ORQUIDEA (Rec: 12/12/20 10:50 PHORJOHN [id number]) Electronically Signed By Abhi Munoz, PT 12/12/20 10:39 Outpatient Therapy Subjective History Subjective History Pt is 45 yowf who presents with c/o pain in low back with radiating symptoms into B hips and lateral thigh x ~ 3 mos with insidious onset of symptoms. She reports pain is worse with standing activities and as the day goes on, especially at work. She reports intermittent tingling and numbness as well. MRI showed L5/S1 small disc bulge and facet arthropathy. She has PMH of HTN, HL, and DM. Chief Complaint Pain,Stiff Symptom Type Ache,Burning Symptoms Relieved By Rest/Positioning Symptoms Aggravated By Standing,Physical Activity Prior Functional Limitations None Current Functional Limitations Lifting,Housework,Standing, Recreation Activity,Walking, Bending/Stooping Symptom Description Intermittent,Activity Dependent Level of pain today (0-10) 0 Pain scale - at its worst (0-10) 8 Lumbopelvic Eval Palapation tenderness right Lumbar/Sacral Palpation Findings Tenderness Lumbar/Sacral Palpation Overall Comment R SI area Accessory Movement L-spine Vertebrae Accessory Movements Central P/A [place] that Elicit Symptoms L2 bilateral L3 bilateral L4 bilateral L5 bilateral S1 bilateral Range of Motion Lumbar Spine Active Flexion Range of 0-60 Motion (degrees) Lumbar Spine Active Extension Range of 0-15 Motion (degrees) Left Lumbar Spine Lateral Flexion Active 0-20 Range of Motion (degrees) Right Lumbar Spine Lateral Flexion 0-20 Active Range of Motion (degrees) Manual Muscle Test Bilateral Knee Extension Strength Grade 5 Normal Knee Flexion Strength Grade 5 Normal Hip Flexion Strength Grade 5 Normal Hip Abduction Strength Grade 5 Normal Hip Adduction Strength Grade 5 Normal Gluteus Praneeth Strength Grade 5 Normal Extensor Hallucis Longus Strength Grade 5 Normal Ankle Dorsiflexion Strength Grade 5 Normal Gastronemius/Soleus Strength Gra
== END 2020-12-24 09:05 | disposition home or self-care (01) ==
LOC: PT 09:00
PROVIDERS: PCP Internal Medicine; Visit Provider Specialist
DX: M54.5 Low back pain (principal)
CPT/HCPCS: 97010; 97014; 97033; 97110; 97140; 97163; G0283

== ENCOUNTER → 2021-06-17 15:59 | Outpatient (CLI) | payer BC, SELFPAY ==
[2021-06-17 17:07] LABS: Hemoglobin A1C 11.2 % (4.0-6.0)
[2021-06-17 17:24] LABS: Alanine Aminotransferase 31 U/L (12-78); Albumin Level 3.5 g/dl (3.5-5.0); Albumin/Globulin Ratio 1.1 (1.1-1.8); Alkaline Phosphatase 157 U/L (38-126); Anion Gap 11.2 mEq/L (5-15); Aspartate Amino Transferase 43 U/L (14-36); Bilirubin,Total 0.3 mg/dl (0.2-1.3); Blood Urea Nitrogen 6 mg/dl (7-17); Calcium 8.9 mg/dl (8.4-10.2); Carbon Dioxide 30 mmol/L (22.0-30.0); Chloride 96 mmol/L (98-107); Chol/HDL Ratio 4.9 (1-3.5); Cholesterol 172 mg/dl (140-200); Estimated Glomerular Filt Rate 108 ml/min (>60); GFR (African American) 130 ML/MIN (>60); Globulin 3.1 g/dL (1.3-3.2); Glucose 324 mg/dl (74-100); HDL Cholesterol 35 mg/dl (40-60); Potassium 3.2 mmoL/L (3.5-5.1); Sodium 134 mmol/L (136-145); Total Protein,Serum 6.6 g/dl (6.3-8.2); Triglycerides 292 mg/dl (30-150); VLDL Cholesterol 58 mg/dL (0-40)
[2021-06-17 17:35] LABS: Direct LDL Cholesterol 86.96 mg/dL (100-129)
== END ==
PROVIDERS: Visit Provider Internal Medicine
DX: I10 Essential (primary) hypertension (principal); E11.9 Type 2 diabetes mellitus without complications; E78.5 Hyperlipidemia, unspecified; Z79.84 Long term (current) use of oral hypoglycemic drugs
CPT/HCPCS: 80053; 80061; 83036

== ENCOUNTER → 2021-08-04 12:22 | Outpatient (CLI) | payer BC, SELFPAY | PROVIDERS: Visit Provider Nurse Practitioner | DX: U07.1 COVID-19 (principal) | CPT/HCPCS: C9803; U0003; U0005 ==

== ENCOUNTER → 2022-01-22 12:45 | Outpatient (CLI) | payer BC, SELFPAY ==
[2022-01-22 13:27] LABS: Basophils # 0.1 K/mm3 (0-0.2); Basophils % 0.9 % (0.1-2.0); Eosinophils # 0.2 K/mm3 (0.0-0.4); Eosinophils % 3.1 % (0.1-12.0); Hematocrit 38.2 % (37.0-47.0); Hemoglobin 13.3 g/dL (12.2-16.2); Lymphocytes # 1.9 K/mm3 (0.7-4.5); Lymphocytes % 28.7 % (10-50); Mean Corpuscular HGB Conc 34.8 g/dL (31.8-35.4); Mean Corpuscular Volume 89.2 fl (81-99); Mean Platelet Volume 10.9 fl (7.4-10.4); Monocytes # 0.3 K/mm3 (0.1-1.0); Monocytes % 4.8 % (1.7-9.3); Neutrophils # 4.1 K/mm3 (1.8-7.8); Neutrophils % 62.4 % (37.0-80.0); Platelet Count 138 K/mm3 (142-424); Red Blood Count 4.29 M/mm3 (4.20-5.40); Red Cell Distribution Width 13.9 % (11.5-17.5); White Blood Count 6.5 K/mm3 (4.8-10.8)
[2022-01-22 14:49] LABS: Chloride 102 mmol/L (98-107); Potassium 3.6 mmoL/L (3.5-5.1); Sodium 137 mmol/L (136-145)
[2022-01-22 14:52] LABS: Alanine Aminotransferase 30 U/L (12-78); Albumin Level 3.8 g/dl (3.5-5.0); Albumin/Globulin Ratio 1.2 (1.1-1.8); Alkaline Phosphatase 137 U/L (38-126); Anion Gap 9.6 mEq/L (5-15); Aspartate Amino Transferase 71 U/L (14-36); Bilirubin,Total 0.8 mg/dl (0.2-1.3); Blood Urea Nitrogen 7 mg/dl (7-17); Carbon Dioxide 29 mmol/L (22.0-30.0); Cholesterol 136 mg/dl (140-200); Estimated Glomerular Filt Rate 108 ml/min (>60); GFR (African American) 130 ML/MIN (>60); Globulin 3.2 g/dL (1.3-3.2); Triglycerides 146 mg/dl (30-150); VLDL Cholesterol 29 mg/dL (0-40)
[2022-01-22 14:53] LABS: Calcium 9.7 mg/dl (8.4-10.2); Chol/HDL Ratio 3.3 (1-3.5); Glucose 310 mg/dl (74-100); HDL Cholesterol 41 mg/dl (40-60)
[2022-01-22 15:04] LABS: Direct LDL Cholesterol 65.76 mg/dL (100-129)
[2022-01-22 15:23] LABS: Thyroid Stimulating Hormone 1.56 uIU/mL (0.465-4.68)
[2022-01-22 16:45] LABS: Hemoglobin A1C 10.3 % (4.0-6.0)
== END ==
LOC: LAB.DROPOF 12:46
PROVIDERS: PCP Internal Medicine; Visit Provider Internal Medicine
DX: I10 Essential (primary) hypertension (principal); E78.5 Hyperlipidemia, unspecified; E11.9 Type 2 diabetes mellitus without complications; F33.1 Major depressive disorder, recurrent, moderate; F41.9 Anxiety disorder, unspecified; Z79.84 Long term (current) use of oral hypoglycemic drugs
CPT/HCPCS: 80053; 80061; 83036; 84443; 85025

== ENCOUNTER → 2022-07-23 16:57 | Outpatient (CLI) | payer BC, SELFPAY ==
[2022-07-23 17:43] LABS: Alanine Aminotransferase 17 U/L (12-78); Albumin Level 3.4 g/dl (3.5-5.0); Albumin/Globulin Ratio 1.2 (1.1-1.8); Alkaline Phosphatase 118 U/L (38-126); Anion Gap 8.3 mEq/L (5-15); Aspartate Amino Transferase 31 U/L (14-36); Bilirubin,Total 0.6 mg/dl (0.2-1.3); Blood Urea Nitrogen 7 mg/dl (7-17); Calcium 8.3 mg/dl (8.4-10.2); Carbon Dioxide 27 mmol/L (22.0-30.0); Chloride 103 mmol/L (98-107); Chol/HDL Ratio 4.4 (1-3.5); Cholesterol 168 mg/dl (140-200); Estimated Glomerular Filt Rate 107 ml/min (>60); GFR (African American) 130 ML/MIN (>60); Globulin 2.9 g/dL (1.3-3.2); Glucose 260 mg/dl (74-100); HDL Cholesterol 38 mg/dl (40-60); Potassium 3.3 mmoL/L (3.5-5.1); Sodium 135 mmol/L (136-145); Total Protein,Serum 6.3 g/dl (6.3-8.2); Triglycerides 138 mg/dl (30-150); VLDL Cholesterol 28 mg/dL (0-40)
[2022-07-23 17:54] LABS: Direct LDL Cholesterol 101.95 mg/dL (100-129)
[2022-07-23 21:31] LABS: Hemoglobin A1C 8.6 % (4.0-6.0)
== END ==
LOC: LAB.DROPOF 16:57
PROVIDERS: PCP Internal Medicine; Visit Provider Internal Medicine
DX: E11.42 Type 2 diabetes mellitus with diabetic polyneuropathy (principal); I10 Essential (primary) hypertension; F33.1 Major depressive disorder, recurrent, moderate; F41.9 Anxiety disorder, unspecified; E78.5 Hyperlipidemia, unspecified; E66.01 Morbid (severe) obesity due to excess calories; Z68.41 Body mass index [BMI] 40.0-44.9, adult; Z79.84 Long term (current) use of oral hypoglycemic drugs
CPT/HCPCS: 80053; 80061; 83036

== ENCOUNTER 2022-11-03 10:46 | Outpatient (RCR) | payer BC, SELFPAY ==
--- NOTE | 2022-11-03 12:43 | HMH.PTOPEV ---
PT Outpatient Evaluation Rehab PT Outpatient Evaluation Start: 11/03/22 10:52 Freq: Status: Active Protocol: Document 11/03/22 10:54 MARKO (Rec: 11/03/22 12:43 MARKO [id number]) E-signed By Alayna Alford, PT Outpatient Therapy Subjective History Subjective History Pt is a 47 y/o female who reports insidious onset of central low back pain with intermittent left leg pain ~ 6 months ago. Pt reports worsening of symptoms within the last two months. Pt describes pain as a deep, throbbing pain that radiates to the left ankle at random times, denies known activities that make pain worse. Pt also reports intermittent tingling sensations of the lateral right hip. Pt reports pain seems to be worse in the evenings. Pt denies recent imaging, per records pt had a lumbar spine radiograph and MRI performed on 11/13/20 with impressions of Minor degenerative changes of the lower lumbar spine without significant canal or foraminal narrowing. Pt states she was not prescribed medication by MD but takes Ibuprofen as needed which helps some. Pt also reports shifting her weight to the right helps relieve pain. Pt denies changes in balance, falls, or b/b function. 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
== END 2022-11-03 10:50 | disposition home or self-care (01) ==
LOC: PT 10:46
PROVIDERS: PCP Internal Medicine; Visit Provider Internal Medicine
DX: M54.42 Lumbago with sciatica, left side (principal)
CPT/HCPCS: 97010; 97014; 97110; 97163; G0283

== ENCOUNTER → 2023-01-16 11:00 | Outpatient (CLI) | payer BC, SELFPAY | PROVIDERS: PCP Internal Medicine; Visit Provider Internal Medicine | DX: E11.42 Type 2 diabetes mellitus with diabetic polyneuropathy (principal) ==

== ENCOUNTER → 2023-01-16 16:32 | Outpatient (CLI) | payer BC, SELFPAY ==
[2023-01-16 17:32] LABS: Creatinine,Urine Random 96 mg/dL (Not Estab.); Microalbumin < 6.000 mg/L (0-16.7)
[2023-01-16 17:43] LABS: Hemoglobin A1C 7.2 % (4.0-6.0)
[2023-01-16 17:46] LABS: Alanine Aminotransferase 17 U/L (12-78); Albumin Level 3.8 g/dl (3.5-5.0); Albumin/Globulin Ratio 1.2 (1.1-1.8); Alkaline Phosphatase 127 U/L (38-126); Anion Gap 10.2 mEq/L (5-15); Aspartate Amino Transferase 30 U/L (14-36); Bilirubin,Total 0.7 mg/dl (0.2-1.3); Blood Urea Nitrogen 11 mg/dl (7-17); Calcium 9.8 mg/dl (8.4-10.2); Carbon Dioxide 29 mmol/L (22.0-30.0); Chloride 104 mmol/L (98-107); Chol/HDL Ratio 4.8 (1-3.5); Cholesterol 215 mg/dl (140-200); Estimated Glomerular Filt Rate 77 ml/min (>60); GFR (African American) 93 ML/MIN (>60); Globulin 3.3 g/dL (1.3-3.2); Glucose 123 mg/dl (74-100); HDL Cholesterol 45 mg/dl (40-60); Potassium 4.2 mmoL/L (3.5-5.1); Sodium 139 mmol/L (136-145); Total Protein,Serum 7.1 g/dl (6.3-8.2); Triglycerides 226 mg/dl (30-150); VLDL Cholesterol 45 mg/dL (0-40)
[2023-01-16 17:57] LABS: Direct LDL Cholesterol 112.37 mg/dL (100-129)
== END ==
PROVIDERS: PCP Internal Medicine; Visit Provider Internal Medicine
DX: E11.42 Type 2 diabetes mellitus with diabetic polyneuropathy (principal); I10 Essential (primary) hypertension; E78.5 Hyperlipidemia, unspecified; F33.2 Major depressive disorder, recurrent severe without psychotic features; F41.9 Anxiety disorder, unspecified
CPT/HCPCS: 80053; 80061; 82043; 82570; 83036

== ENCOUNTER → 2023-06-16 16:39 | Outpatient (CLI) | payer BC, SELFPAY ==
[2023-06-16 17:43] LABS: Basophils % 0.3 % (0.1-2.0); Eosinophils # 0.2 K/mm3 (0.0-0.4); Eosinophils % 4.1 % (0.1-12.0); Hematocrit 33.1 % (37.0-47.0); Lymphocytes # 1.5 K/mm3 (0.7-4.5); Mean Corpuscular HGB Conc 33.4 g/dL (31.8-35.4); Mean Corpuscular Volume 77.8 fl (81-99); Mean Platelet Volume 10.8 fl (7.4-10.4); Monocytes # 0.2 K/mm3 (0.1-1.0); Monocytes % 4.4 % (1.7-9.3); Neutrophils # 3.5 K/mm3 (1.8-7.8); Neutrophils % 63.2 % (37.0-80.0); Platelet Count 145 K/mm3 (142-424); Red Blood Count 4.25 M/mm3 (4.20-5.40); Red Cell Distribution Width 17.5 % (11.5-17.5); White Blood Count 5.5 K/mm3 (4.8-10.8)
[2023-06-16 19:09] LABS: Iron 56 ug/dL (37-170)
[2023-06-16 19:21] LABS: Total Iron Binding Capacity 428 ug/dL (265-497)
== END ==
PROVIDERS: PCP Internal Medicine; Visit Provider Internal Medicine
DX: F50.89 Other specified eating disorder (principal); R23.8 Other skin changes; R53.83 Other fatigue
CPT/HCPCS: 83540; 83550; 85025

== ENCOUNTER 2023-07-29 16:30 | Outpatient (CLI) | payer BC, SELFPAY ==
[2023-07-29 17:03] LABS: Basophils % 0.5 % (0.1-2.0); Eosinophils # 0.2 K/mm3 (0.0-0.4); Eosinophils % 4.1 % (0.1-12.0); Hematocrit 34.6 % (37.0-47.0); Hemoglobin 11.1 g/dL (12.2-16.2); Lymphocytes # 1.3 K/mm3 (0.7-4.5); Lymphocytes % 23.4 % (10-50); Mean Corpuscular HGB Conc 32.1 g/dL (31.8-35.4); Mean Corpuscular Hemoglobin 25.2 pg (27.0-31.2); Mean Corpuscular Volume 78.6 fl (81-99); Mean Platelet Volume 11.4 fl (7.4-10.4); Monocytes # 0.3 K/mm3 (0.1-1.0); Monocytes % 4.7 % (1.7-9.3); Neutrophils # 3.8 K/mm3 (1.8-7.8); Neutrophils % 67.3 % (37.0-80.0); Platelet Count 147 K/mm3 (142-424); Red Cell Distribution Width 17.1 % (11.5-17.5); White Blood Count 5.7 K/mm3 (4.8-10.8)
[2023-07-29 17:24] LABS: Chloride 103 mmol/L (98-107)
[2023-07-29 17:25] LABS: Potassium 3.9 mmoL/L (3.5-5.1); Sodium 135 mmol/L (136-145)
[2023-07-29 17:27] LABS: Alanine Aminotransferase 21 U/L (12-78); Albumin Level 3.6 g/dl (3.5-5.0); Albumin/Globulin Ratio 1.2 (1.1-1.8); Alkaline Phosphatase 140 U/L (38-126); Anion Gap 14.9 mEq/L (5-15); Aspartate Amino Transferase 29 U/L (14-36); Bilirubin,Total 0.6 mg/dl (0.2-1.3); Blood Urea Nitrogen 10 mg/dl (7-17); Carbon Dioxide 21 mmol/L (22.0-30.0); Cholesterol 196 mg/dl (140-200); Estimated Glomerular Filt Rate 89 ml/min (>60); GFR (African American) 108 ML/MIN (>60); Globulin 3.1 g/dL (1.3-3.2); Total Protein,Serum 6.7 g/dl (6.3-8.2); Triglycerides 225 mg/dl (30-150); VLDL Cholesterol 45 mg/dL (0-40)
[2023-07-29 17:28] LABS: Calcium 8.9 mg/dl (8.4-10.2); Chol/HDL Ratio 5.4 (1-3.5); Glucose 354 mg/dl (74-100); HDL Cholesterol 36 mg/dl (40-60)
[2023-07-29 17:47] LABS: Direct LDL Cholesterol 108.27 mg/dL (100-129)
[2023-07-29 21:05] LABS: Hemoglobin A1C 9.2 % (4.0-6.0)
== END 2023-07-29 23:59 ==
LOC: LAB.DROPOF 16:31
PROVIDERS: PCP Internal Medicine; Visit Provider Internal Medicine
DX: E11.42 Type 2 diabetes mellitus with diabetic polyneuropathy (principal); I10 Essential (primary) hypertension; D50.9 Iron deficiency anemia, unspecified; E78.5 Hyperlipidemia, unspecified
CPT/HCPCS: 80053; 80061; 83036; 85025

== ENCOUNTER 2023-09-28 15:09 | Outpatient (CLI) | payer BC, SELFPAY ==
--- NOTE | 2023-09-28 15:25 | ECG_ITS ---
APPROVED REPORT Exam: Resting ECG HR:76 bpm ECG Measurements Heart Rate 76 AXES AR 175 P 49 QRSd 106 QRS 20 QT 412 T 37 QTc 443 Conclusion SINUS RHYTHM NORMAL ECG UNCONFIRMED REPORT Electronically signed by : Elliot Urias MD 09/28/2023 17:58:27
== END 2023-09-28 23:59 ==
LOC: RAD 15:11
PROVIDERS: PCP Internal Medicine; Visit Provider Internal Medicine
DX: R07.9 Chest pain, unspecified (principal); K21.00 Gastro-esophageal reflux disease with esophagitis, without bleeding
CPT/HCPCS: 93005

== ENCOUNTER 2024-01-20 16:18 | Outpatient (CLI) | payer BC, SELFPAY ==
[2024-01-20 17:17] LABS: Basophils % 0.2 % (0.1-2.0); Eosinophils # 0.3 K/mm3 (0.0-0.4); Eosinophils % 5.3 % (0.1-12.0); Hematocrit 30.6 % (37.0-47.0); Hemoglobin 9.7 g/dL (12.2-16.2); Lymphocytes # 1.8 K/mm3 (0.7-4.5); Lymphocytes % 29.6 % (10-50); Mean Corpuscular HGB Conc 31.8 g/dL (31.8-35.4); Mean Corpuscular Hemoglobin 24.4 pg (27.0-31.2); Mean Corpuscular Volume 76.8 fl (81-99); Mean Platelet Volume 9.4 fl (7.4-10.4); Monocytes # 0.4 K/mm3 (0.1-1.0); Monocytes % 6.3 % (1.7-9.3); Neutrophils # 3.5 K/mm3 (1.8-7.8); Neutrophils % 58.7 % (37.0-80.0); Platelet Count 169 K/mm3 (142-424); Red Blood Count 3.99 M/mm3 (4.20-5.40)
[2024-01-20 17:47] LABS: Alanine Aminotransferase 10 U/L (12-78); Albumin Level 3.6 g/dl (3.5-5.0); Albumin/Globulin Ratio 1.2 (1.1-1.8); Alkaline Phosphatase 106 U/L (38-126); Anion Gap 11.4 mEq/L (5-15); Aspartate Amino Transferase 17 U/L (14-36); Bilirubin,Total 0.6 mg/dl (0.2-1.3); Blood Urea Nitrogen 10 mg/dl (7-17); Carbon Dioxide 24 mmol/L (22.0-30.0); Chloride 107 mmol/L (98-107); Estimated Glomerular Filt Rate 77 ml/min (>60); GFR (African American) 93 ML/MIN (>60); Glucose 95 mg/dl (74-100); Potassium 3.4 mmoL/L (3.5-5.1); Sodium 139 mmol/L (136-145); Total Protein,Serum 6.6 g/dl (6.3-8.2)
[2024-01-20 18:12] LABS: Hemoglobin A1C 5.4 % (4.0-6.0)
== END 2024-01-20 23:59 | disposition home or self-care (01) ==
LOC: LAB.DROPOF 16:19
PROVIDERS: PCP Internal Medicine; Visit Provider Internal Medicine
DX: E11.42 Type 2 diabetes mellitus with diabetic polyneuropathy (principal); E78.5 Hyperlipidemia, unspecified; I10 Essential (primary) hypertension; Z79.84 Long term (current) use of oral hypoglycemic drugs
CPT/HCPCS: 80053; 83036; 85025

== ENCOUNTER 2024-02-18 11:22 | Outpatient (CLI) | payer BC, SELFPAY | END 2024-02-18 23:59 | disposition home or self-care (01) | LOC: RAD 11:23 | PROVIDERS: PCP Internal Medicine; Visit Provider Physician Assistant | DX: D64.9 Anemia, unspecified (principal) ==

== ENCOUNTER 2024-04-25 09:51 | Outpatient (POV) | payer BC, SELFPAY ==
--- NOTE | 2024-04-25 10:05 | A.OFFVIS_ITS ---
HPI Data of Consult Patient: new to practice Consult date: 04/25/24 Requesting Physician: Alayna Monsivais APRN Primary Care Provider: Jose Dupree MD Consult Narrative Reason for consult: Low back pain, hip pain, neck pain, shoulder pain History of present illness: Ms. Wesley is a 49 year old female who presents today as a new patient. She is a referral from [facility]. Today she rates her pain a 7 out of 10. Patient states she has pain in multiple locations including low back and hips as well as neck and shoulders. Patient does state this pain has been going on for years and progressively worsening. She does state that the low back pain has been around much longer than the neck and shoulder symptoms. She states those have just been the last couple of years. Patient denies any specific trauma or injury that initially started her symptoms and believes a lot of it is more wear and tear. Patient does describe the low back pain and aching, throbbing sensation that is worse with increased activity such as weed eating or lifting. Patient does state that the low back symptoms are worse than the neck and shoulder pain. Patient does state it interferes with her ability perform activities of daily living such as cooking and cleaning. Patient does state her neck and shoulders is more of an achy sensation. Patient does state that she has tried [id number] ibuprofen along with Tylenol, heat ice and topicals with minimal relief. Patient states that her doctor did tell her that she was taking too much ibuprofen and needed to come off that medication until they could run additional blood work. Patient states that the Tylenol does nothing. Patient denies any prior back surgery or injection history. Patient did complete physical therapy and states that it made no additional change. She does state that she still tries to do at home exercising and stretching for longer than 12 weeks with no additional relief.Patient is not on any scheduled medications. Her Hood has been reviewed and is appropriate. CC: Alayna Monsivais APRN [facility] Disclaimer: The information contained in this section may have been updated after the patient was seen, as this information can be updated by other users. 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 Generalized anxiety disorder Recurrent major depression resistant to treatment Social History Smoking Status: Never smoker second hand exposure: Yes alcohol intake: never substance use type: denies use and marijuana current occupational status: employed Travel in the last 8 weeks: None household members: spouse housing: house number of children: 0 current occupation: [employer] current occupational exposures/hazards: No caffeine: Yes Review of Systems Review of Systems Review of systems:: pertinent systems reviewed and negative unless documented below Review of systems (narrative): Review of Systems: General: No recent weight changes, no fever, no sleep disturbances Respiratory: No cough, no shortness of air, no recurring pulmonary infections Cardiovascular/peripheral vascular: No chest pain, no palpitations, no edema, no shortness of breath Gastrointestinal: No new onset incontinence, normal bowel movements reported Genitourinary: No new onset incontinence Musculoskeletal: Low back pain, hip pain, neck and shoulder pain Psychiatric: [Normal mood/affect] Neurological: [Denies weakness in extremities], [denies balance issues] Meds Home Medications and Allergies Home Medications ?Medication ?Instructions ?Recorded ?Confirmed ?Type nystatin 100,000 unit/gram topical 1 applic topical BID #30 grams 12/18/20 04/20/24 Rx cream nystatin 100,000 unit/gram topical 1 applic topical BID #60 grams 12/18/20 04/20/24 Rx powder fluoxetine 40 mg capsule (Prozac) 40 mg PO DAILY #30 caps 07/02/22 04/20/24 Rx amlodipine 5 mg tablet 5 mg PO DAILY #90 tabs 01/20/24 04/20/24 Rx bisoprolol fumarate 5 mg tablet 5 mg PO DAILY #90 tabs 01/20/24 04/20/24 Rx bupropion HCl 200 mg tablet,12 hr 200 mg PO DAILY 01/20/24 04/20/24 History sustained-release insulin glargine 100 unit/mL (3 50 unit SQ DAILY 01/20/24 04/20/24 History mL) subcutaneous pen (Lantus Solostar U-100 Insulin) lamotrigine 150 mg tablet 150 mg PO DAILY 01/20/24 04/20/24 History lisinopril 40 mg tablet 40 mg PO DAILY High blood pressure 01/20/24 04/20/24 Rx #90 tabs omeprazole 40 mg capsule,delayed 40 mg PO DAILY 01/20/24 04/20/24 History release pen needle, diabetic 31 gauge x #1,200 ea 01/20/24 04/20/24 History 3/16 (BD Ultra-Fine Mini Pen Needle) propranolol 10 mg tablet 10 mg PO ONCE 01/20/24 04/20/24 History tirzepatide 7.5 mg/0.5 mL 7.5 mg SQ WEEKLY 01/20/24 04/20/24 History subcutaneous pen injector trazodone 100 mg tablet 100 mg PO HS PRN 01/20/24 04/20/24 History ferrous sulfate 325 mg (65 mg 325 mg PO BID #180 tabs 01/21/24 04/20/24 Rx iron) tablet blood-glucose sensor (Dexcom G7 #3 ea 03/01/24 04/20/24 Rx Sensor device) fluconazole 150 mg tablet 150 mg PO ONCE PRN YEAST #1 tab 03/10/24 04/20/24 Rx tirzepatide 7.5 mg/0.5 mL See Rx Instructions .Route 03/25/24 04/20/24 Rx subcutaneous pen injector .COMPLEX #4 mL (Mounjaro) metformin 500 mg tablet 1,000 mg (2 x 500 mg) PO DAILY 04/06/24 04/20/24 Rx Diabetes #180 tabs tirzepatide 10 mg/0.5 mL 10 mg (0.5 mL) SQ WEEKLY #2.5 mL 04/20/24 04/20/24 Rx subcutaneous pen injector New Prescriptions to Start Prescriptions: Allergies Allergy/AdvReac Type Severity Reaction Status Date / Time No Known Allergies Allergy Verified 04/20/24 10:41 Objective Narrative: Physical Exam: General: Alert and oriented x3, no acute distress, pleasant and cooperative Lungs: Respirations even and unlabored, symmetrical chest expansion Eyes: PERRL Musculoskeletal: Flexion and extension of lumbar [spine] somewhat guarded secondary to pain, [antalgic gait noted] positive Kemps test Neurological: Speech clear, no gross sensory deficit Additional findings Additional findings: FINDINGS: Normal lumbar lordosis is noted. Vertebral body heights and alignment are maintained. Intervertebral disc spaces are within normal limits without significant disc bulges. Bone marrow signal intensity is within normal limits without evidence of marrow infiltrative process. 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 The paravertebral soft tissues are unremarkable. Further details as described below T12-L1: No canal or foraminal stenosis. L1-2: Minor facet joint arthropathy without significant canal or foraminal narrowing. L2-3: Minor facet joint arthropathy without significant canal or foraminal narrowing. L3-4: Minor facet joint and ligamentum flavum hypertrophy causes posterior thecal sac indentation. No significant in aloe foraminal narrowing. L4-5: Bilateral facet joint and ligamentum flavum hypertrophy causes posterior thecal sac indentation. Mild bilateral foraminal narrowing is noted. L5-S1: Small disc bulge and bilateral facet joint hypertrophy causes mild canal narrowing. No significant foraminal narrowing is noted. IMPRESSION: Minor degenerative changes of the lower lumbar spine without significant canal or foraminal narrowing. Dictated by: Flory Mathew 11/13/2020 14:12 Flory Mathew in [place] 11/13/2020 14:12 Assessment and Plan *Assessment and plan (1) Degenerative disc disease, lumbar: Status: Acute Category: Medical Code(s): M51.369 - Other intervertebral disc degeneration, lumbar region without mention of lumbar back pain or lower extremity pain (2) Ligamentum flavum hypertrophy: Status: Acute Category: Medical Code(s): M24.28 - Disorder of ligament, vertebrae (3) Lumbar facet arthropathy: Status: Acute Category: Medical Code(s): M47.816 - Spondylosis without myelopathy or radiculopathy, lumbar region Plan Patient is experiencing significant pain in her low back and hips with limited range of motion and a positive Kemps test. I did discuss with the patient that I do believe she would benefit from a lumbar medial branch block. Risk and benefits were discussed with the patient and she would like to proceed forward with this plan of care. Patient did have multilevel lumbar facet arthropathy throughout her lumbar spine. Patient was counseled if she does get significant relief with her initial block we will plan on repeating it with the plan to progress to a lumbar RFA at a later date. Patient acknowledges understanding and agrees with this plan of care. Patient has tried and failed conservative therapy including continued at home stretching exercise for longer than 12 weeks. Patient will be scheduled for lumbar medial branch block bilaterally L4- L5 and L5-S1 under fluoroscopy. Patient has been instructed to contact the clinic with any concerns before the next appointment. Dr. Tabor has reviewed this note and agrees with this plan of care. This note was dictated using voice recognition software and make contain errors or omissions. All injections are used with Lidocaine or Bupivacaine and Depo Medrol.
[2024-04-25 10:39] VITALS: BP 128/65; PULSE 66; RESP 16; O2SAT 97; BMI 41.3
== END 2024-04-25 23:59 | disposition home or self-care (01) ==
LOC: SC.PAIN 09:52
PROVIDERS: PCP Internal Medicine; Visit Provider Nurse Practitioner Family
DX: M51.369 Other intervertebral disc degeneration, lumbar region without mention of lumbar back pain or lower extremity pain (principal); M24.28 Disorder of ligament, vertebrae; M47.816 Spondylosis without myelopathy or radiculopathy, lumbar region; Z73.89 Other problems related to life management difficulty; Z79.899 Other long term (current) drug therapy
CPT/HCPCS: 99202; G0463

== ENCOUNTER 2024-05-06 12:51 | Day surgery (SDC) | payer BC, SELFPAY ==
[2024-05-06 13:28] VITALS: BP 151/85; PULSE 68; RESP 16; TEMP 36.7; O2SAT 96; BMI 41.3
[2024-05-06] MEDS: methylPREDNISolone ACETATE 80MG/ML VIAL 80 MG (13:35)
[2024-05-06] MEDS: LIDOCAINE 1% 5ML PF VIAL 5 ML (13:35)
[2024-05-06] MEDS: BUPIVACAINE 0.25% 10ML INJ 25 MG IJ (13:35)
[2024-05-06 13:36] VITALS: BP 149/93; PULSE 66; RESP 18; O2SAT 97; O2SAT 98
--- NOTE | 2024-05-06 13:43 | P.PCN_ITS ---
Procedure Date: 05/06/24 Time: 13:30 Anesthesiologist:: Leopoldo Arenas CRNA Complications:: None Pre-procedure Diagnosis:: Degenerative disc lumbar spine multilevels. Lumbar radiculopathy. Lumbar spondylosis. Multilevel lumbar facet arthropathy. Post-procedure Diagnosis:: Same. Indications for Procedure:: Patient is a very pleasant 49-year-old female that comes our clinic today for round 1 of bilateral L4-5, L5-S1 medial branch blocks/facet injections. Patient describes low lumbar back pain is constant, dull, aching. Patient reports having difficulty with lumbar flexion, extension, left and right rotation. She rates her pain 6/10. She reports having difficulty standing for any length of time. Sleeping has been difficult due to the low lumbar back pain that is constant. Procedure Details:: Informed consent was obtained and the risk and benefits of the procedure was explained to the patient. Patient was taken to the procedure room where noninvasive monitors were placed, including noninvasive blood pressure cuff as well as pulse oximeter. The area over the lumbar spine was cleansed using chlorhexidine as a cleansing solution. I anesthetized the skin and subcutaneous tissues with 1% Lidocaine. I placed 22-gauge spinal needles into the facet joint/ medial branches of L4-L5, and L5-S1] bilaterally. Needle placement was confirmed with fluoroscopy. After confirmation of needle placement, each site was injected with 1 mL of 1% lidocaine and 0.25 % Marcaine and 10 mg of Depo- Medrol. A total of 80 mg of depo medrol was used for bilateral medial branch blocks of L4-L5, and L5-S1] bilaterally. Patient tolerated the procedure without difficulty. There were no complications. Plan and Disposition:: Patient was discharged without incident.
[2024-05-06 13:50] VITALS: BP 138/70; PULSE 62; RESP 16; O2SAT 98
== END 2024-05-06 13:50 | disposition home or self-care (01) ==
PROVIDERS: PCP Internal Medicine; Visit Provider Nurse Anesthetist, Certified Registered
DX: M47.816 Spondylosis without myelopathy or radiculopathy, lumbar region (principal); M51.360 Other intervertebral disc degeneration, lumbar region with discogenic back pain only
CPT/HCPCS: 64493; 64494; J1010

== ENCOUNTER 2024-05-10 10:30 | Outpatient (POV) | payer BC, SELFPAY | END 2024-05-10 23:59 | disposition home or self-care (01) | LOC: SC 05-11 08:02 | PROVIDERS: Visit Provider Dermatology | DX: Z00.00 Encounter for general adult medical examination without abnormal findings (principal) ==

== ENCOUNTER 2024-05-30 11:18 | Outpatient (POV) | payer BC, SELFPAY ==
--- NOTE | 2024-05-30 11:51 | EXP.PAIN.SOA ---
[facility] Disclaimer: The information contained in this section may have been updated after the patient was seen, as this information can be updated by other users. 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 Generalized anxiety disorder Recurrent major depression resistant to treatment Social History Smoking Status: Never smoker second hand exposure: Yes alcohol intake: never substance use type: denies use and marijuana current occupational status: other household members: spouse housing: house number of children: 0 current occupation: [employer] current occupational exposures/hazards: No caffeine: Yes PM Subjective & Objective Subjective Subjective:: Patient is a pleasant 49-year-old female who presents today for follow-up of her first lumbar medial branch block bilaterally L4-L5 and L5-S1 on 05/06/2024. Today she rates her pain a 7 out of 10. She denies any new trauma or injury. She states that she did not notice any improvement with this injection. She does states she still has the chronic low back and hip pain as well as her neck still is bothering her from time to time. She does state that the low back issue is much worse than the neck and describes it as a aching, throbbing sensation that does interfere with her ability perform activities of daily living such as cooking and cleaning. Patient has continued [id number] medications such as Tylenol and ibuprofen along with heat and ice and topicals with minimal relief. Patient has completed physical therapy and continued to do physician guided at home stretching exercise for longer than 12 weeks with no additional improvement. Her Hood has been reviewed and is appropriate. Review of Systems: General: No recent weight changes, no fever, no sleep disturbances Respiratory: No cough, no shortness of air, no recurring pulmonary infections Cardiovascular/peripheral vascular: No chest pain, no palpitations, no edema, no shortness of breath Gastrointestinal: No new onset incontinence, normal bowel movements reported Genitourinary: No new onset incontinence Musculoskeletal: Low back pain, bilateral hip pain Psychiatric: [Normal mood/affect] Neurological: [Denies weakness in extremities], [denies balance issues] Pain at rest (0-10 scale): 7 Objective Objective:: Physical Exam: General: Alert and oriented x3, no acute distress, pleasant and cooperative Lungs: Respirations even and unlabored, symmetrical chest expansion Eyes: PERRL Musculoskeletal: Flexion and extension of lumbar [spine] somewhat guarded secondary to pain, [antalgic gait noted] point tenderness along bilateral SIs with positive bilateral Amy's, Sanjuana's, Gaenslen's, compression and distraction exam Neurological: Speech clear, no gross sensory deficit Has patient had previous pain injection?: Yes Percent improvement in pain since last injection: Minimal Conservative treatment options previously tried: Home exercise plan Length of treatment: Longer than 12 weeks Meds Home Medications and Allergies Home Medications ?Medication ?Instructions ?Recorded ?Confirmed ?Type nystatin 100,000 unit/gram topical 1 applic topical BID #30 grams 12/18/20 05/06/24 Rx cream nystatin 100,000 unit/gram topical 1 applic topical BID #60 grams 12/18/20 05/06/24 Rx powder fluoxetine 40 mg capsule (Prozac) 40 mg PO DAILY #30 caps 07/02/22 05/06/24 Rx bisoprolol fumarate 5 mg tablet 5 mg PO DAILY #90 tabs 01/20/24 05/06/24 Rx bupropion HCl 200 mg tablet,12 hr 200 mg PO DAILY 01/20/24 05/06/24 History sustained-release insulin glargine 100 unit/mL (3 50 unit SQ DAILY 01/20/24 05/06/24 History mL) subcutaneous pen (Lantus Solostar U-100 Insulin) lamotrigine 150 mg tablet 150 mg PO DAILY 01/20/24 05/06/24 History lisinopril 40 mg tablet 40 mg PO DAILY High blood pressure 01/20/24 05/06/24 Rx #90 tabs omeprazole 40 mg capsule,delayed 40 mg PO DAILY 01/20/24 05/06/24 History release pen needle, diabetic 31 gauge x #1,200 ea 01/20/24 05/06/24 History 3/16 (BD Ultra-Fine Mini Pen Needle) propranolol 10 mg tablet 10 mg PO ONCE 01/20/24 05/06/24 History tirzepatide 7.5 mg/0.5 mL 7.5 mg SQ WEEKLY 01/20/24 05/06/24 History subcutaneous pen injector trazodone 100 mg tablet 100 mg PO HS PRN . 01/20/24 05/06/24 History blood-glucose sensor (Dexcom G7 #3 ea 03/01/24 05/06/24 Rx Sensor device) fluconazole 150 mg tablet 150 mg PO ONCE PRN YEAST #1 tab 03/10/24 05/06/24 Rx tirzepatide 7.5 mg/0.5 mL See Rx Instructions .Route 03/25/24 05/06/24 Rx subcutaneous pen injector .COMPLEX #4 mL (Mounjaro) metformin 500 mg tablet 1,000 mg (2 x 500 mg) PO DAILY 04/06/24 05/06/24 Rx Diabetes #180 tabs tirzepatide 10 mg/0.5 mL 10 mg (0.5 mL) SQ WEEKLY #2.5 mL 04/20/24 05/06/24 Rx subcutaneous pen injector ferrous sulfate 325 mg (65 mg 325 mg PO BID #180 tabs 05/23/24 Rx iron) tablet amlodipine 5 mg tablet 5 mg PO DAILY #90 tabs 05/25/24 Rx New Prescriptions to Start Prescriptions: Allergies Allergy/AdvReac Type Severity Reaction Status Date / Time No Known Allergies Allergy Verified 04/20/24 10:41 Assessment and Plan *Assessment and plan (1) Bilateral sacroiliitis: Status: Acute Category: Medical Code(s): M46.1 - Sacroiliitis, not elsewhere classified Plan Patient is experiencing worsening pain along the low back and bilateral hips. They did have limited range of motion of the lumbar spine along with point tenderness along bilateral SI joints and a positive bilateral Amy's, Sanjuana's, Gaenslen's, compression and distraction exam. I did discuss with the patient that I do believe they would benefit from bilateral SI injections. Risk and benefits were discussed with the patient and they would like to proceed forward with this option. Patient has tried and failed conservative therapy including continued at home stretching exercise for longer than 12 weeks. Patient will be scheduled for bilateral SI injections under fluoroscopy. I will also order the patient a compounded cream and plan on taking out the diclofenac. Patient has been instructed to contact the clinic with any concerns before the next appointment. Dr. Tabor has reviewed this note and agrees with this plan of care. This note was dictated using voice recognition software and make contain errors or omissions. All injections are used with Lidocaine or Bupivacaine and Depo Medrol.
[2024-05-30 14:18] VITALS: BP 111/68; PULSE 77; RESP 16; O2SAT 95; BMI 41.3
== END 2024-05-30 23:59 | disposition home or self-care (01) ==
LOC: SC.PAIN 11:18
PROVIDERS: PCP Internal Medicine; Visit Provider Nurse Practitioner Family
DX: M46.1 Sacroiliitis, not elsewhere classified (principal); Z73.89 Other problems related to life management difficulty; Z79.899 Other long term (current) drug therapy
CPT/HCPCS: 99212; G0463

== ENCOUNTER 2024-07-05 08:40 | Day surgery (SDC) | payer BC, SELFPAY ==
[2024-07-05 09:02] VITALS: BP 151/82; PULSE 82; RESP 16; TEMP 36.3; O2SAT 96; BMI 41.3
[2024-07-05] MEDS: LIDOCAINE 1% 5ML PF VIAL 5 ML (09:30)
[2024-07-05] MEDS: methylPREDNISolone ACETATE 80MG/ML VIAL 80 MG (09:30)
[2024-07-05] MEDS: BUPIVACAINE 0.25% 10ML INJ 25 MG IJ (09:30)
[2024-07-05 09:31] VITALS: BP 156/77; PULSE 79; RESP 18; O2SAT 96
[2024-07-05 09:33] VITALS: BP 156/77; PULSE 77; RESP 18; O2SAT 96
[2024-07-05 09:38] VITALS: BP 156/90; PULSE 82; RESP 16; O2SAT 100
--- NOTE | 2024-07-05 09:58 | P.PCN_ITS ---
Procedure Date: 07/05/24 Time: 09:10 Anesthesiologist:: Leopoldo Arenas CRNA Complications:: None Pre-procedure Diagnosis:: Bilateral sacroiliitis Post-procedure Diagnosis:: Same Indications for Procedure:: Patient is a very pleasant 49-year-old female who comes our clinic today for bilateral sacroiliac joint injections cortisone and local anesthetic. Patient describes low lumbar back pain off the midline bilaterally. Also, bilateral posterior hip pain. She describes having difficulty transitioning from sitting to standing. Difficulty sitting for any length of time. Rates her pain 7/10. Procedure Details:: Procedure: Bilateral sacroiliac joint injections under fluoroscopy Informed consent was obtained and the risks and benefits of the procedure were explained to the patient.~ The patient was taken to the procedure room and non invasive monitors were placed including a noninvasive blood pressure cuff and pulse oximeter.~ The patient was placed prone on the procedure table. Both hips were cleansed using Betadine as a cleansing solution. C-arm fluoroscopy was used to view the right sacroiliac joint.~ The skin and subcutaneous tissues were anesthetized using lidocaine 1.5% and a 25-gauge needle.~ After this, a 22-gauge spinal needle was inserted under fluoroscopic guidance into the inferior aspect of the right sacroiliac joint.~ Omnipaque dye was injected and good spread was seen throughout the joint.~ After this, approximately 5 mL of bupivacaine, 0.25% and Depo-Medrol, 40 mg was incrementally injected into the right sacroiliac joint. We then moved to the left sacroiliac joint.~ The skin and subcutaneous tissues were anesthetized using lidocaine 1.5% and a 25-gauge needle.~ After this, a 22- gauge spinal needle was inserted under fluoroscopic guidance into the inferior aspect of the left sacroiliac joint.~ Omnipaque dye was injected and good spread was seen throughout the joint. After this, approximately 5 mL of bupivacaine, 0.25% and Depo-Medrol, 40 mg was incrementally injected into the left sacroiliac joint.~ The patient tolerated the procedure well with no complications. The patient was observed in the Pain Clinic and then was discharged home neurologically intact. Plan and Disposition:: Patient was discharged without incident
== END 2024-07-05 09:38 | disposition home or self-care (01) ==
LOC: SC.PAINP 08:41
PROVIDERS: PCP Internal Medicine; Visit Provider Nurse Anesthetist, Certified Registered
DX: M46.1 Sacroiliitis, not elsewhere classified (principal)
CPT/HCPCS: 27096; G0260; J1010

== ENCOUNTER 2024-07-20 09:48 | Outpatient (CLI) | payer BC, SELFPAY ==
[2024-07-20 12:35] LABS: Chloride 106 mmol/L (98-107)
[2024-07-20 12:36] LABS: Albumin Level 3.8 g/dl (3.5-5.0); Potassium 3.9 mmoL/L (3.5-5.1); Sodium 137 mmol/L (136-145)
[2024-07-20 12:38] LABS: Alanine Aminotransferase 20 U/L (12-78); Aspartate Amino Transferase 27 U/L (14-36); Basophils # 0.1 K/mm3 (0-0.2); Basophils % 0.8 % (0.1-2.0); Blood Urea Nitrogen 12 mg/dl (7-17); Eosinophils # 0.3 K/mm3 (0.0-0.4); Eosinophils % 3.8 % (0.1-12.0); Estimated Glomerular Filt Rate 67 ml/min (>60); GFR (African American) 81 ML/MIN (>60); Hemoglobin 13.6 g/dL (12.2-16.2); Lymphocytes # 1.9 K/mm3 (0.7-4.5); Lymphocytes % 25.1 % (10-50); Mean Corpuscular Hemoglobin 32.9 pg (27.0-31.2); Mean Corpuscular Volume 96.6 fl (81-99); Mean Platelet Volume 11.9 fl (7.4-10.4); Monocytes # 0.4 K/mm3 (0.1-1.0); Monocytes % 5.8 % (1.7-9.3); Neutrophils # 4.7 K/mm3 (1.8-7.8); Neutrophils % 64.4 % (37.0-80.0); Platelet Count 187 K/mm3 (142-424); Red Blood Count 4.14 M/mm3 (4.20-5.40); Red Cell Distribution Width 13.1 % (11.5-17.5); White Blood Count 7.4 K/mm3 (4.8-10.8)
[2024-07-20 12:39] LABS: Albumin/Globulin Ratio 1.5 (1.1-1.8); Alkaline Phosphatase 96 U/L (38-126); Anion Gap 9.9 mEq/L (5-15); Bilirubin,Total 0.4 mg/dl (0.2-1.3); Calcium 9.4 mg/dl (8.4-10.2); Carbon Dioxide 25 mmol/L (22.0-30.0); Chol/HDL Ratio 3.2 (1-3.5); Cholesterol 174 mg/dl (140-200); Globulin 2.6 g/dL (1.3-3.2); Glucose 85 mg/dl (74-100); HDL Cholesterol 54 mg/dl (40-60); Total Protein,Serum 6.4 g/dl (6.3-8.2); Triglycerides 175 mg/dl (30-150); VLDL Cholesterol 35 mg/dL (0-40)
[2024-07-20 12:50] LABS: Direct LDL Cholesterol 83.89 mg/dL (100-129)
[2024-07-20 14:20] LABS: Microalbumin/Creatinine Ratio 7.7
[2024-07-20 14:25] LABS: Creatinine,Urine Random 98 mg/dL (Not Estab.)
[2024-07-20 15:47] LABS: Hemoglobin A1C 5.1 % (4.0-6.0)
[2024-07-20 16:10] LABS: Vitamin B12 320 pg/mL (239-931)
[2024-07-30 03:48] LABS: 1,25 Dihydroxy Vitamin D 16 pg/mL (.); 1,25-Dihydroxy, Vitamin D-2 <10 pg/mL (.); 1,25-Dihydroxy, Vitamin D-3 16 pg/mL (.)
== END 2024-07-20 23:59 | disposition home or self-care (01) ==
LOC: LAB.DROPOF 07-21 09:49
PROVIDERS: PCP Internal Medicine; Visit Provider Internal Medicine
DX: E78.5 Hyperlipidemia, unspecified (principal); E11.42 Type 2 diabetes mellitus with diabetic polyneuropathy; D64.9 Anemia, unspecified; D50.9 Iron deficiency anemia, unspecified; I85.00 Esophageal varices without bleeding; E55.9 Vitamin D deficiency, unspecified; I10 Essential (primary) hypertension; N28.9 Disorder of kidney and ureter, unspecified
CPT/HCPCS: 36415; 80053; 80061; 82043; 82570; 82607; 82652; 83036; 85025

== ENCOUNTER 2024-07-21 14:33 | Outpatient (POV) | payer BC, SELFPAY ==
--- NOTE | 2024-07-21 14:45 | EXP.PAIN.SOA ---
[facility] Disclaimer: The information contained in this section may have been updated after the patient was seen, as this information can be updated by other users. 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 Generalized anxiety disorder Recurrent major depression resistant to treatment Social History Smoking Status: Never smoker second hand exposure: Yes alcohol intake: never substance use type: denies use and marijuana current occupational status: other Travel in the last 8 weeks: None household members: spouse housing: house number of children: 0 current occupation: [employer] current occupational exposures/hazards: No caffeine: Yes PM Subjective & Objective Subjective Subjective:: Pleasant 79-year-old female who presents today for follow-up. Today she rates her pain a patient is a pleasant 49-year-old female who presents today for follow-up of bilateral SI injections on 07/05/2024. Today she rates her pain a 8 out of 10. She denies any new trauma or injury. She does state that she has had approximately 75 to 80% improvements initially from this injection for about 2 days however it has worn down to only about 30% today. She does states she is still having the pain all across to her low back and does go into her hips. Patient does state that she has more aching in the right hip in comparison to the left and that she does have more numbness along the left side in comparison to the right. Patient is prescribed compounded cream from our office. Her Hood has been reviewed and is appropriate. Review of Systems: General: No recent weight changes, no fever, no sleep disturbances Respiratory: No cough, no shortness of air, no recurring pulmonary infections Cardiovascular/peripheral vascular: No chest pain, no palpitations, no edema, no shortness of breath Gastrointestinal: No new onset incontinence, normal bowel movements reported Genitourinary: No new onset incontinence Musculoskeletal: Low back pain Psychiatric: [Normal mood/affect] Neurological: [Denies weakness in extremities], [denies balance issues] Pain at rest (0-10 scale): 8 Objective Objective:: Physical Exam: General: Alert and oriented x3, no acute distress, pleasant and cooperative Lungs: Respirations even and unlabored, symmetrical chest expansion Eyes: PERRL Musculoskeletal: Flexion and extension of lumbar [spine] somewhat guarded secondary to pain, [antalgic gait noted] Neurological: Speech clear, no gross sensory deficit Has patient had previous pain injection?: Yes Percent improvement in pain since last injection: 80% initially Conservative treatment options previously tried: Home exercise plan Length of treatment: Longer than 12 weeks Meds Home Medications and Allergies Home Medications ?Medication ?Instructions ?Recorded ?Confirmed ?Type nystatin 100,000 unit/gram topical 1 applic topical BID #30 grams 12/18/20 07/20/24 Rx cream nystatin 100,000 unit/gram topical 1 applic topical BID #60 grams 12/18/20 07/20/24 Rx powder fluoxetine 40 mg capsule (Prozac) 40 mg PO DAILY #30 caps 07/02/22 07/20/24 Rx bisoprolol fumarate 5 mg tablet 5 mg PO DAILY #90 tabs 01/20/24 07/20/24 Rx bupropion HCl 200 mg tablet,12 hr 200 mg PO DAILY 01/20/24 07/20/24 History sustained-release insulin glargine 100 unit/mL (3 50 unit SQ DAILY 01/20/24 07/20/24 History mL) subcutaneous pen (Lantus Solostar U-100 Insulin) lamotrigine 150 mg tablet 150 mg PO DAILY 01/20/24 07/20/24 History lisinopril 40 mg tablet 40 mg PO DAILY High blood pressure 01/20/24 07/20/24 Rx #90 tabs omeprazole 40 mg capsule,delayed 40 mg PO DAILY 01/20/24 07/20/24 History release pen needle, diabetic 31 gauge x #1,200 ea 01/20/24 07/20/24 History 3/16 (BD Ultra-Fine Mini Pen Needle) propranolol 10 mg tablet 10 mg PO ONCE 01/20/24 07/20/24 History tirzepatide 7.5 mg/0.5 mL 7.5 mg SQ WEEKLY 01/20/24 07/20/24 History subcutaneous pen injector trazodone 100 mg tablet 100 mg PO HS PRN . 01/20/24 07/20/24 History blood-glucose sensor (Dexcom G7 #3 ea 03/01/24 07/20/24 Rx Sensor device) fluconazole 150 mg tablet 150 mg PO ONCE PRN YEAST #1 tab 03/10/24 07/20/24 Rx tirzepatide 7.5 mg/0.5 mL See Rx Instructions .Route 03/25/24 07/20/24 Rx subcutaneous pen injector .COMPLEX #4 mL (Mounjaro) metformin 500 mg tablet 1,000 mg (2 x 500 mg) PO DAILY 04/06/24 07/20/24 Rx Diabetes #180 tabs tirzepatide 10 mg/0.5 mL 10 mg (0.5 mL) SQ WEEKLY #2.5 mL 04/20/24 07/20/24 Rx subcutaneous pen injector ferrous sulfate 325 mg (65 mg 325 mg PO BID #180 tabs 05/23/24 07/20/24 Rx iron) tablet amlodipine 5 mg tablet 5 mg PO DAILY #90 tabs 05/25/24 07/20/24 Rx New Prescriptions to Start Prescriptions: Allergies Allergy/AdvReac Type Severity Reaction Status Date / Time No Known Allergies Allergy Verified 07/20/24 09:55 Assessment and Plan *Assessment and plan (1) Bilateral sacroiliitis: Status: Acute Category: Medical Code(s): M46.1 - Sacroiliitis, not elsewhere classified (2) Lumbar facet arthropathy: Status: Acute Category: Medical Code(s): M47.816 - Spondylosis without myelopathy or radiculopathy, lumbar region (3) Degenerative disc disease, lumbar: Status: Acute Category: Medical Code(s): M51.369 - Other intervertebral disc degeneration, lumbar region without mention of lumbar back pain or lower extremity pain Plan Patient continues to have chronic pain throughout her low back and bilateral hips. I did discuss with the patient due to her not having any updated imaging since 2020 that I do believe she would benefit from updated x-ray and MRI without contrast. Patient agrees with this plan of care. I will also send in a prescription of methocarbamol 500 mg 3 times daily as needed. Patient will return to clinic in 1 month following her imaging for reevaluation of symptoms and plan of care. Patient has been instructed to contact the clinic with any concerns before the next appointment. Dr. Tabor has reviewed this note and agrees with this plan of care. This note was dictated using voice recognition software and make contain errors or omissions. All injections are used with Lidocaine, Bupivacaine and Depo Medrol. Occasionally urine drug screen is needed to verify patient's compliance with our office pain contract. This is ordered based off specific treatments related to chronic pain with the potential to abuse certain medications.
[2024-07-21 14:54] VITALS: BP 121/71; PULSE 79; RESP 16; O2SAT 99; BMI 41.3
--- NOTE | 2024-07-21 15:12 | XR_ITS ---
FINAL REPORT TECHNIQUE: 5 views CLINICAL HISTORY: LBP COMPARISON: None FINDINGS: LUMBAR SPINE: There is no fracture present. There is no malalignment. There is mild diffuse degenerative disc disease present. Mild facet arthropathy is noted. IMPRESSION: Mild degenerative disc disease without acute bony abnormality. Reviewed, Interpreted and Dictated by Jazmine Kimble MD Transcribed by Ann-Marie Lowry Authenticated and [facility]
== END 2024-07-21 23:59 | disposition home or self-care (01) ==
PROVIDERS: PCP Internal Medicine; Visit Provider Nurse Practitioner Family
DX: M46.1 Sacroiliitis, not elsewhere classified (principal); M47.816 Spondylosis without myelopathy or radiculopathy, lumbar region; M51.369 Other intervertebral disc degeneration, lumbar region without mention of lumbar back pain or lower extremity pain; Z79.899 Other long term (current) drug therapy
CPT/HCPCS: 72110; 99212; G0463

== ENCOUNTER 2024-07-30 17:59 | Emergency (ER) | payer BC, SELFPAY ==
--- NOTE | 2024-07-30 18:04 | XR_ITS ---
PROCEDURE INFORMATION: Exam: XR Left Ribs Exam date and time: 07/30/2024 6:01 PM Age: 49 years old Clinical indication: Injury or trauma; Fall; Rib area, left side; Blunt trauma; Additional info: Fall today, left anterior rib pain TECHNIQUE: Imaging protocol: Radiologic exam of the left ribs. Views: 2 views. COMPARISON: CR XR CHEST 2V 07/30/2024 5:59 PM FINDINGS: Bones/joints: Normal. Soft tissues: Normal. IMPRESSION: No displaced rib fracture is identified.
--- NOTE | 2024-07-30 18:04 | XR_ITS ---
PROCEDURE INFORMATION: Exam: XR Chest Exam date and time: 07/30/2024 5:59 PM Age: 49 years old Clinical indication: Injury or trauma; Fall; Blunt trauma (contusions or hematomas); Additional info: Fall today, left anterior rib pain TECHNIQUE: Imaging protocol: Radiologic exam of the chest. Views: 2 views. COMPARISON: CR XR CHEST 2V 08/19/2019 12:33 PM FINDINGS: Lungs: There are mildly increased interstitial markings adjacent to the left hemidiaphragm which may reflect atelectasis. Pleural spaces: No large effusion or pneumothorax. Heart/Mediastinum: Stable cardiac and mediastinal contours. Vasculature: There are calcifications of the aortic arch. Bones/joints: No evidence of acute osseous abnormalities within the visualized portions of the thoracic spine and ribs. Osseous structures appear appropriate for patient age. IMPRESSION: There are mildly increased interstitial markings adjacent to the left hemidiaphragm which may reflect atelectasis.
[2024-07-30 18:28] VITALS: BP 137/71; PULSE 70; RESP 18; TEMP 36.6; O2SAT 97; BMI 41.3
--- NOTE | 2024-07-30 18:37 | EXP.UTC ---
Discharge Plan Disposition Patient Disposition: Home, Self-Care Condition: Good Prescriptions Prescriptions: No Action bupropion HCl 200 mg tablet sustained-release 12 hr 200 mg PO DAILY propranolol 10 mg tablet 10 mg PO ONCE lamotrigine 150 mg tablet 150 mg PO DAILY omeprazole 40 mg capsule,delayed release(DR/EC) 40 mg PO DAILY insulin glargine [Lantus Solostar U-100 Insulin] 100 unit/mL (3 mL) insulin pen 50 unit SQ DAILY (DME) pen needle, diabetic [BD Ultra-Fine Mini Pen Needle] 31 gauge x 3/16 needle See Rx Instructions .ROUTE .MEDSUPPLY Qty: 1200 Rx Instructions: As directed fluoxetine [Prozac] 40 mg capsule 40 mg PO DAILY Qty: 30 1RF (DME) Dexcom G7 Sensor Device See Rx Instructions .ROUTE .COMPLEX Qty: 3 4RF Dose Instruction: CHANGE EVERY 10 DAYS Rx Instructions: CHANGE EVERY 10 DAYS metformin 500 mg tablet 1,000 mg PO DAILY Qty: 180 1RF ferrous sulfate 325 mg (65 mg iron) tablet 325 mg PO BID Qty: 180 1RF Rx Instructions: Take with meals. Stools will look black. amlodipine 5 mg tablet 5 mg PO DAILY Qty: 90 1RF bisoprolol fumarate 5 mg tablet See Rx Instructions .ROUTE .COMPLEX Qty: 90 1RF Dose Instruction: TAKE 1 TABLET BY MOUTH ONCE DAILY Rx Instructions: TAKE 1 TABLET BY MOUTH ONCE DAILY lisinopril 40 mg tablet 40 mg PO DAILY Qty: 90 1RF Referrals Follow up/Referrals: Jose Dupree MD [Primary Care Provider] - See instructions Activity Restrictions/Add. Instructions Additional Instructions/Restrictions: Tylenol or Motrin as needed for pain Ice 20 minutes every hour for comfort If symptoms worsen or do not improve return Follow-up with PCP this week if needed Clinical Impressions Clinical Impression: Contusion of rib Qualifiers: Encounter type: initial encounter Laterality: right Qualified Code(s): S20.211A - Contusion of right front wall of thorax, initial encounter Instructions Patient Instructions: DI for Rib Contusion Print Language Print Language: Turkmen Discharge ED Provider: Annamaria ([facility])[place] [facility] [place] General Stated complaint: fell 2x today R rib pain Mode of Arrival: Ambulatory Source of Information: Patient Time Seen by Provider: 07/30/24 18:37 Description of Symptoms (Recalled from Triage Doc. by RN): FELL ON ICE AND HURT RIGHT SIDE OF RIB CAGE HEENT Symptoms (Recalled from RN notes): No Resp Symptoms (Recalled from RN notes): No Skin Symptoms (Recalled from RN notes): No MS Symptoms (Recalled from RN notes): Yes Functional Status (Recalled from RN notes): WNL History of Present Illness Provider Complaint: 49-year-old female presents for right rib pain. Patient states she fell twice on the ice down to the rib area. Related Data Home Medications ?Medication ?Instructions ?Recorded ?Confirmed bupropion HCl 200 mg tablet,12 hr 200 mg PO DAILY 01/20/24 07/30/24 sustained-release insulin glargine 100 unit/mL (3 50 unit SQ DAILY 01/20/24 07/30/24 mL) subcutaneous pen (Lantus Solostar U-100 Insulin) lamotrigine 150 mg tablet 150 mg PO DAILY 01/20/24 07/30/24 omeprazole 40 mg capsule,delayed 40 mg PO DAILY 01/20/24 07/30/24 release pen needle, diabetic 31 gauge x #1,200 ea 01/20/24 07/21/2409/18 (BD Ultra-Fine Mini Pen Needle) propranolol 10 mg tablet 10 mg PO ONCE 01/20/24 07/30/24 Previous Rx's ?Medication ?Instructions ?Recorded fluoxetine 40 mg capsule (Prozac) 40 mg PO DAILY #30 caps 07/02/22 blood-glucose sensor (Dexcom G7 #3 ea 03/01/24 Sensor device) metformin 500 mg tablet 1,000 mg (2 x 500 mg) PO DAILY 04/06/24 Diabetes #180 tabs ferrous sulfate 325 mg (65 mg 325 mg PO BID #180 tabs 05/23/24 iron) tablet amlodipine 5 mg tablet 5 mg PO DAILY #90 tabs 05/25/24 bisoprolol fumarate 5 mg tablet See Rx Instructions .Route 07/27/24 .COMPLEX #90 tabs lisinopril 40 mg tablet 40 mg PO DAILY High blood pressure 07/27/24 #90 tabs Allergies Allergy/AdvReac Type Severity Reaction Status Date / Time No Known Allergies Allergy Verified 07/20/24 09:55 Worker's Comp Is this a Worker's Comp case?: No [facility] Disclaimer: The information contained in this section may have been updated after the patient was seen, as this information can be updated by other users. 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 , PRESSER HAND) Generalized anxiety disorder Recurrent major depression resistant to treatment Social History , PRESSER HAND) Smoking Status: Never smoker second hand exposure: Yes alcohol intake: never substance use type: denies use and marijuana current occupational status: other Travel in the last 8 weeks: None household members: spouse housing: house number of children: 0 current occupation: [employer] current occupational exposures/hazards: No caffeine: Yes Have you lived/traveled outside [place] in past 30 days?: No Contact w/someone who lives/traveled outside US past 30 days?: No Exposure to someone with infectious disease in past 14 days?: No Do you have a fever (greater than 100.4 F or 38 C)?: No Have you tested positive for COVID-19: No Exposed to someone with COVID-19 in past 14 days?: No Do you have a sore throat?: No Do you have a cough?: No Do you have any weakness?: No Do you have any diarrhea?: No Are you experiencing any unusual bleeding?: No Do you have any muscle aches/pain?: No Do you have any abdominal pain?: No Are you experiencing loss of taste or smell?: No ROS Obtained: Yes Systems reviewed as appropriate & no additional complaints except as documented Respiratory Respiratory: Reports system reviewed and no additional complaints, except as documented, Reports as per HPI and Reports other Physical Exam General General appearance: alert and in no apparent distress ENT ENT exam: Present normal exam Chest Chest inspection: Present normal inspection, symmetric chest wall rise and tenderness Expanded Chest Exam Trauma: Absent ecchymosis Female Torso: 1. Tenderness Respiratory Respiratory exam: Present normal lung sounds bilaterally Cardiovascular Cardiovascular exam: Present regular rate and normal rhythm Neurological Exam Neurological exam: Present alert and oriented X3 Skin Skin exam: Present warm and intact Medical Decision Making Medical Records Medical records reviewed: Yes I reviewed the patient's medical records. Screening: Per USPSTF and CDC recommendations, given the prevalence of disease in our region, it is our hospital?s policy to screen for HIV and viral Hepatitis for all patients aged 18 and over and those with ongoing risk factors. Hood Inquiry Pt receiving controlled substance: No Vital Signs: 07/30/24 18:28 Temperature 97.9 F Temperature Source Oral Pulse Rate [Left Radial] 70 Respiratory Rate 18 Blood Pressure [Left Arm] 137/71 Blood Pressure Mean [Left Arm] 93 02 Sat by Pulse Oximetry 97 Orders (Tests/Meds): ORDERS Category Date Time Status XR chest 2V Stat Exams 07/30/24 18:04 Taken XR ribs LT 2V Stat Exams 07/30/24 18:04 Taken Radiology Data #1: Image(s): Chest Image Reviewed: Yes I have reviewed radiologist's interpretation Preliminary Findings: Normal/NAD
[2024-07-30 19:04] VITALS: BP 137/71; PULSE 70; RESP 18; TEMP 36.6
== END 2024-07-30 19:04 | disposition home or self-care (01) ==
PROVIDERS: Emergency Provider Nurse Practitioner Family; PCP Internal Medicine
DX: S20.211A Contusion of right front wall of thorax, initial encounter (principal)
CPT/HCPCS: 71046; 71100; 99213; G0381

== ENCOUNTER 2024-08-03 07:56 | Outpatient (CLI) | payer BC, SELFPAY ==
--- NOTE | 2024-08-03 07:59 | MR_ITS ---
FINAL REPORT CLINICAL HISTORY: LBP. bilateral hip and leg pain with numbness. no injury or trauma FINDINGS: Multiplanar MR imaging of the lumbar spine was performed without contrast. On the sagittal T2-weighted images, abnormal decreased signal is seen at L5-S1. The vertebrae are of normal height. The vertebral alignment is normal. L1-2: There is no significant canal stenosis or neural foraminal narrowing. L2-3: There is no significant canal stenosis or neural foraminal narrowing. L3-4: There is no significant canal stenosis or neural foraminal narrowing. L4-5: Mild bilateral facet hypertrophy is present. L5-S1: Mild diffuse disc bulge with moderate bilateral facet hypertrophy. Mild left neuroforaminal narrowing. Small Tarlov cyst at the S2 level on the right. IMPRESSION: Degenerative disc disease in the lower lumbar spine. Reviewed, Interpreted and Dictated by Ernesto Harrell MD Transcribed by Renay Davis Authenticated and [facility]
== END 2024-08-03 23:59 | disposition home or self-care (01) ==
LOC: RAD 07:56
PROVIDERS: PCP Internal Medicine; Visit Provider Nurse Practitioner Family
DX: M51.369 Other intervertebral disc degeneration, lumbar region without mention of lumbar back pain or lower extremity pain (principal); M47.816 Spondylosis without myelopathy or radiculopathy, lumbar region; M46.1 Sacroiliitis, not elsewhere classified
CPT/HCPCS: 72148

== ENCOUNTER 2024-08-04 10:47 | Outpatient (CLI) | payer BC, SELFPAY ==
--- NOTE | 2024-08-04 10:51 | XR_ITS ---
FINAL REPORT TECHNIQUE: Chest PA & Lateral CLINICAL HISTORY: Right rib pain from fall from thursday COMPARISON: None FINDINGS: 2 views of the chest were performed. The heart size is normal. The mediastinum is within normal limits. There is no acute cardiopulmonary process. There are no pleural effusions. There is no pneumothorax. The bony thorax appears intact. IMPRESSION: No acute cardiopulmonary process. Reviewed, Interpreted and Dictated by Ernesto Harrell MD Transcribed by Malu Joshi Authenticated and [facility]
--- NOTE | 2024-08-04 10:54 | US_ITS ---
FINAL REPORT CLINICAL HISTORY: CIRRHOSIS COMPARISON: None FINDINGS: Sonographic images of the right upper quadrant were obtained. The pancreas is obscured. The liver is slightly nodular with increased echogenicity, probably due to cirrhosis. The gallbladder is within normal limits. There is no evidence of biliary ductal dilatation.The common duct measures 3 mm. Limited images of the right kidney are unremarkable. IMPRESSION: Mild cirrhosis. Reviewed, Interpreted and Dictated by Ernesto Harrell MD Transcribed by Malu Joshi Authenticated and [facility] [place]
== END 2024-08-04 23:59 | disposition home or self-care (01) ==
LOC: RAD 10:48
PROVIDERS: PCP Internal Medicine; Visit Provider Physician Assistant
DX: R07.81 Pleurodynia (principal); S20.211A Contusion of right front wall of thorax, initial encounter; K74.60 Unspecified cirrhosis of liver
CPT/HCPCS: 71046; 76705

== ENCOUNTER 2024-08-18 14:35 | Outpatient (POV) | payer BC, SELFPAY ==
--- NOTE | 2024-08-18 14:40 | A.OFFVIS_ITS ---
[facility] Disclaimer: The information contained in this section may have been updated after the patient was seen, as this information can be updated by other users. 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 Today she rates her pain a 8 out of 10. She states from her last appointment she did have 2 falls related to the ice. She does not think that she did anything significant other than more hurting her pride. Patient does state that she still having the chronic low back pain that does vary to what side is the worst. She states here recently she has had more pain on the left side. She does state that the left leg is numb and tingling. Patient states that she has to physically move it on occasion due to this. Patient does state the pain does interfere with her ability perform activities of daily living such as cooking and cleaning. Patient was sent in methocarbamol 500 mg 3 times daily at her last visit. She does state that she did not particularly notice much improvement. Patient did previously have bilateral SI injections back in June that did provide 80% improvements for a few days however then progressively lessened by the 2-week ivet. Patient is prescribed compounded cream. Her Hood has been reviewed and is appropriate. Review of Systems: General: No recent weight changes, no fever, no sleep disturbances Respiratory: No cough, no shortness of air, no recurring pulmonary infections Cardiovascular/peripheral vascular: No chest pain, no palpitations, no edema, no shortness of breath Gastrointestinal: No new onset incontinence, normal bowel movements reported Genitourinary: No new onset incontinence Musculoskeletal: Low back pain, left leg numbness Psychiatric: [Normal mood/affect] Neurological: [Denies weakness in extremities], [denies balance issues] Pain at rest (0-10 scale): 8 Objective Objective:: Physical Exam: General: Alert and oriented x3, no acute distress, pleasant and cooperative Lungs: Respirations even and unlabored, symmetrical chest expansion Eyes: PERRL Musculoskeletal: Flexion and extension of lumbar [spine] somewhat guarded secondary to pain, [antalgic gait noted] positive leg raise Neurological: Speech clear, no gross sensory deficit FINDINGS: Multiplanar MR imaging of the lumbar spine was performed without contrast. On the sagittal T2-weighted images, abnormal decreased signal is seen at L5-S1. The vertebrae are of normal height. The vertebral alignment is normal. L1-2: There is no significant canal stenosis or neural foraminal narrowing. L2-3: There is no significant canal stenosis or neural foraminal narrowing. L3-4: There is no significant canal stenosis or neural foraminal narrowing. L4-5: Mild bilateral facet hypertrophy is present. L5-S1: Mild diffuse disc bulge with moderate bilateral facet hypertrophy. Mild left neuroforaminal narrowing. Small Tarlov cyst at the S2 level on the right. IMPRESSION: Degenerative disc disease in the lower lumbar spine. Reviewed, Interpreted and Dictated by Ernesto Harrell MD Transcribed by Renay Davis Has patient had previous pain injection?: No Conservative treatment options previously tried: Home exercise plan Length of treatment: Longer than 12 weeks Meds Home Medications and Allergies Home Medications ?Medication ?Instructions ?Recorded ?Confirmed ?Type fluoxetine 40 mg capsule (Prozac) 40 mg PO DAILY #30 caps 07/02/22 08/18/24 Rx bupropion HCl 200 mg tablet,12 hr 200 mg PO DAILY 01/20/24 08/18/24 History sustained-release lamotrigine 150 mg tablet 150 mg PO DAILY 01/20/24 08/18/24 History omeprazole 40 mg capsule,delayed 40 mg PO DAILY 01/20/24 08/18/24 History release pen needle, diabetic 31 gauge x #1,200 ea 01/20/24 08/18/24 History 3/ (BD Ultra-Fine Mini Pen Needle) propranolol 10 mg tablet 10 mg PO ONCE 01/20/24 08/18/24 History blood-glucose sensor (Dexcom G7 #3 ea 03/01/24 08/18/24 Rx Sensor device) metformin 500 mg tablet 1,000 mg (2 x 500 mg) PO DAILY 10/02/24 02/13/25 Rx Diabetes #180 tabs ferrous sulfate 325 mg (65 mg 325 mg PO BID #180 tabs 05/23/24 08/18/24 Rx iron) tablet amlodipine 5 mg tablet 5 mg PO DAILY #90 tabs 05/25/24 08/18/24 Rx bisoprolol fumarate 5 mg tablet See Rx Instructions .Route 07/27/24 08/18/24 Rx .COMPLEX #90 tabs lisinopril 40 mg tablet 40 mg PO DAILY High blood pressure 07/27/24 08/18/24 Rx #90 tabs Lantus Solostar U-100 Insulin 100 See Rx Instructions .Route 08/18/24 Rx unit/mL (3 mL) subcutaneous pen .COMPLEX #15 mL (insulin glargine) New Prescriptions to Start Prescriptions: Allergies Allergy/AdvReac Type Severity Reaction Status Date / Time No Known Allergies Allergy Verified 07/20/24 09:55 Assessment and Plan *Assessment and plan (1) Degenerative disc disease, lumbar: Status: Acute Category: Medical Code(s): M51.369 - Other intervertebral disc degeneration, lumbar region without mention of lumbar back pain or lower extremity pain (2) Ligamentum flavum hypertrophy: Status: Acute Category: Medical Code(s): M24.28 - Disorder of ligament, vertebrae (3) Lumbar facet arthropathy: Status: Acute Category: Medical Code(s): M47.816 - Spondylosis without myelopathy or radiculopathy, lumbar region (4) Bilateral sacroiliitis: Status: Acute Category: Medical Code(s): M46.1 - Sacroiliitis, not elsewhere classified (5) Lumbar radiculopathy: Status: Acute Category: Medical Code(s): M54.16 - Radiculopathy, lumbar region Plan We did review over her most recent lumbar MRI findings. Patient is experiencing worsening pain in [her] low back with numbness and tingling into her lower extr emities. Patient did have limited range of motion of her lumbar spine with a positive leg raise. I did discuss with patient that I do believe they would benefit from a lumbar epidural steroid injection. Risk and benefits were discussed with patient and the patient would like to proceed forward with this plan of care. Patient is is not on any blood thinners. Patient has tried and failed conservative therapy including continued at home stretching exercise for longer than 12 weeks between injections. Patient has not had any lumbar epidurals in the past however has had her chronic low back pain longer than 3 months. We will schedule the patient for an LESI L5-S1 under fluoroscopy. I will also send in a 2-week prescription of baclofen 5 mg 3 times daily. Patient was counseled to discontinue the methocarbamol. Patient has been instructed to contact the clinic with any concerns before the next appointment. Dr. Tabor has reviewed this note and agrees with this plan of care. This note was dictated using voice recognition software and make contain errors or omissions. All injections are used with Lidocaine, Bupivacaine and Depo Medrol. Occasionally urine drug screen is needed to verify patient's compliance with our office pain contract. This is ordered based off specific treatments related to chronic pain with the potential to abuse certain medications. Patient has been instructed to contact the clinic with any concerns before the next appointment. Dr. Tabor has reviewed this note and agrees with this plan of care. This note was dictated using voice recognition software and make contain errors or omissions. All injections are used with Lidocaine, Bupivacaine and Depo Medrol. Occasionally urine drug screen is needed to verify patient's compliance with our office pain contract. This is ordered based off specific treatments related to chronic pain with the potential to abuse certain medications.
[2024-08-18 14:47] VITALS: BP 116/63; PULSE 80; RESP 14; O2SAT 98; BMI 41.3
== END 2024-08-18 23:59 | disposition home or self-care (01) ==
PROVIDERS: PCP Internal Medicine; Visit Provider Nurse Practitioner Family
DX: M51.16 Intervertebral disc disorders with radiculopathy, lumbar region (principal); M24.28 Disorder of ligament, vertebrae; M47.26 Other spondylosis with radiculopathy, lumbar region; M46.1 Sacroiliitis, not elsewhere classified; Z73.89 Other problems related to life management difficulty
CPT/HCPCS: 99212; G0463

== ENCOUNTER 2024-09-13 13:57 | Day surgery (SDC) | payer BC, SELFPAY ==
[2024-09-13 14:06] VITALS: BP 124/73; PULSE 80; RESP 16; TEMP 36.8; O2SAT 96; BMI 41.3
[2024-09-13 14:12] LABS: POC Glucose,Bedside 111 (70-110)
--- NOTE | 2024-09-13 14:14 | EXP.PAIN.PRO ---
Procedure Date: 09/13/24 Time: 14:15 Anesthesiologist:: Leopoldo Arenas CRNA Complications:: None Pre-procedure Diagnosis:: Degenerative disc lumbar spine multilevels. Lumbar radiculopathy. Post-procedure Diagnosis:: Same. Indications for Procedure:: Patient is a very pleasant 49-year-old female who comes our clinic today for lumbar epidural steroid injection. Patient describes low lumbar back pain as well as bilateral hip and leg radicular symptoms at times. She rates her pain 7/10. Procedure Details:: Procedure: Lumbar epidural steroid injection under fluoroscopy Informed consent was obtained and the risks and benefits of the procedure were explained to the patient. The patient was taken to the procedure room and noninvasive monitors placed, including noninvasive blood pressure cuff and pulse oximeter. The back was viewed using C-arm Fluoroscopy and prepped using Chloraprep as a cleansing solution and the L5-S1 interspace was palpated. Skin and subcutaneous tissues were anesthetized using lidocaine 1.5% and a 25-gauge needle. After this, an 18-gauge Touhy epidural needle was placed into the L5-S1 interspace and advanced using fluoroscopic guidance and loss of resistance to air until the epidural space was encountered. After confirmation of needle placement in the epidural space, with dye, a solution containing normal saline, 3 mL and Depo-Medrol 80 mg were incrementally injected into the lumbar epidural space. The patient tolerated the procedure well with no complications. The patient was observed in the Pain Clinic and then discharged home neurologically intact. Plan and Disposition:: Patient was discharged without incident.
[2024-09-13 14:30] VITALS: BP 119/72; PULSE 77; RESP 16; O2SAT 97
[2024-09-13 15:42] VITALS: BP 124/73; PULSE 80; RESP 18; O2SAT 96
[2024-09-13] MEDS: methylPREDNISolone ACETATE 80MG/ML VIAL 80 MG (15:42)
[2024-09-13 15:44] VITALS: BP 124/73; PULSE 80; RESP 18; O2SAT 96
== END 2024-09-13 14:30 | disposition home or self-care (01) ==
PROVIDERS: PCP Internal Medicine; Visit Provider Nurse Anesthetist, Certified Registered
DX: M51.16 Intervertebral disc disorders with radiculopathy, lumbar region (principal)
CPT/HCPCS: 62323; 82962; J1010

== ENCOUNTER 2024-09-29 08:54 | Outpatient (POV) | payer BC, SELFPAY ==
--- NOTE | 2024-09-29 09:03 | A.OFFVIS_ITS ---
[facility] Disclaimer: The information contained in this section may have been updated after the patient was seen, as this information can be updated by other users. 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 Today she rates her pain a 6 out of 10. Patient does state that she has had approximately 75% improvement following this injection and feels like it is still helping. Patient states the pain is not as severe and very much manageable. Patient does state however that she is having a lot of neck pain and increased headaches. Patient is asking if that something that we can treat as well. Patient is prescribed methocarbamol 500 mg 3 times a day and compounded cream from our office. Patient did not notice significant relief with the methocarbamol in the past so we did just recently send in a prescription of baclofen 5 mg 3 times daily. Patient does state that she did not notice any side effects but then also did not notice any increased improvement from this medication. Her Hood has been reviewed. Review of Systems: General: No recent weight changes, no fever, no sleep disturbances Respiratory: No cough, no shortness of air, no recurring pulmonary infections Cardiovascular/peripheral vascular: No chest pain, no palpitations, no edema, no shortness of breath Gastrointestinal: No new onset incontinence, normal bowel movements reported Genitourinary: No new onset incontinence Musculoskeletal: neck pain, headache Psychiatric: [Normal mood/affect] Neurological: [Denies weakness in extremities], [denies balance issues] Pain at rest (0-10 scale): 6 Objective Objective:: Physical Exam: General: Alert and oriented x3, no acute distress, pleasant and cooperative Lungs: Respirations even and unlabored, symmetrical chest expansion Eyes: PERRL Musculoskeletal: Flexion and extension of cervical [spine] somewhat guarded secondary to pain, [antalgic gait noted] Neurological: Speech clear, no gross sensory deficit Has patient had previous pain injection?: Yes Percent improvement in pain since last injection: 75% Conservative treatment options previously tried: Home exercise plan Length of treatment: Longer than 12 weeks Meds Home Medications and Allergies Home Medications ?Medication ?Instructions ?Recorded ?Confirmed ?Type fluoxetine 40 mg capsule (Prozac) 40 mg PO DAILY #30 caps 07/02/22 09/13/24 Rx bupropion HCl 200 mg tablet,12 hr 200 mg PO DAILY 01/20/24 09/13/24 History sustained-release lamotrigine 150 mg tablet 150 mg PO DAILY 01/20/24 09/13/24 History omeprazole 40 mg capsule,delayed 40 mg PO DAILY 01/20/24 09/13/24 History release pen needle, diabetic 31 gauge x #1,200 ea 01/20/24 09/13/24 History 3/16 (BD Ultra-Fine Mini Pen Needle) propranolol 10 mg tablet 10 mg PO ONCE 01/20/24 09/13/24 History blood-glucose sensor (Dexcom G7 #3 ea 03/01/24 09/13/24 Rx Sensor device) metformin 500 mg tablet 1,000 mg (2 x 500 mg) PO DAILY 04/06/24 09/13/24 Rx Diabetes #180 tabs ferrous sulfate 325 mg (65 mg 325 mg PO BID #180 tabs 05/23/24 09/13/24 Rx iron) tablet amlodipine 5 mg tablet 5 mg PO DAILY #90 tabs 05/25/24 09/13/24 Rx bisoprolol fumarate 5 mg tablet See Rx Instructions .Route 07/27/24 09/13/24 Rx .COMPLEX #90 tabs lisinopril 40 mg tablet 40 mg PO DAILY High blood pressure 07/27/24 09/13/24 Rx #90 tabs Lantus Solostar U-100 Insulin 100 See Rx Instructions .Route 08/18/24 09/13/24 Rx unit/mL (3 mL) subcutaneous pen .COMPLEX #15 mL (insulin glargine) baclofen 5 mg tablet 5 mg PO TID #42 tabs 08/18/24 09/13/24 Rx New Prescriptions to Start Prescriptions: Allergies Allergy/AdvReac Type Severity Reaction Status Date / Time No Known Allergies Allergy Verified 07/20/24 09:55 Assessment and Plan *Assessment and plan (1) Lumbar radiculopathy: Status: Acute Category: Medical Code(s): M54.16 - Radiculopathy, lumbar region (2) Degenerative disc disease, lumbar: Status: Acute Category: Medical Code(s): M51.369 - Other intervertebral disc degeneration, lumbar region without mention of lumbar back pain or lower extremity pain (3) Ligamentum flavum hypertrophy: Status: Acute Category: Medical Code(s): M24.28 - Disorder of ligament, vertebrae (4) Neck pain: Status: Acute Category: Medical Code(s): M54.2 - Cervicalgia Plan Patient has had significant improvement following her lumbar epidural and does not require any additional therapy. I did discuss with the patient regarding her increasing neck pain and headaches that I would like to order x-ray imaging with MRI without contrast to proceed forward. Patient was also counseled to take 2 of the 5 mg baclofen tablets together the next time she tries the muscle relaxer and see if that higher dosage does help. Patient agrees with this plan of care. Patient will return to clinic in 1 month. Patient has been instructed to contact the clinic with any concerns before the next appointment. Dr. Tabor has reviewed this note and agrees with this plan of care. This note was dictated using voice recognition software and make contain errors or omissions. All injections are used with Lidocaine, Bupivacaine and Depo Medrol. Occasionally urine drug screen is needed to verify patient's compliance with our office pain contract. This is ordered based off specific treatments related to chronic pain with the potential to abuse certain medications.
[2024-09-29 09:27] VITALS: BP 139/80; PULSE 87; RESP 14; O2SAT 99; BMI 41.3
--- NOTE | 2024-09-29 09:28 | XR_ITS ---
FINAL REPORT CLINICAL HISTORY: Neck pain, chronic numbness left side, occasionally right side FINDINGS: AP, lateral and odontoid views of the cervical spine were obtained. There is no prior exam for comparison. There is no acute fracture or malalignment. There is very mild degenerative disc disease. The precervical soft tissues are normal. Vascular calcifications are noted on the left. IMPRESSION: Very mild degenerative change without acute osseous abnormality of the cervical spine. Reviewed, Interpreted and Dictated by Kourtney Valentin MD Transcribed by Malu Joshi Authenticated and [facility]
== END 2024-09-29 23:59 | disposition home or self-care (01) ==
PROVIDERS: PCP Internal Medicine; Visit Provider Nurse Practitioner Family
DX: M54.2 Cervicalgia (principal); M51.16 Intervertebral disc disorders with radiculopathy, lumbar region; M24.28 Disorder of ligament, vertebrae
CPT/HCPCS: 72040; 99212; G0463

== ENCOUNTER 2024-10-10 16:46 | Outpatient (CLI) | payer BC, SELFPAY ==
--- NOTE | 2024-10-10 16:48 | MR_ITS ---
PROCEDURE INFORMATION: Exam: MR Cervical Spine Without Contrast Exam date and time: 10/10/2024 5:09 PM Age: 49 years old Clinical indication: Neck pain with numbness in back of neck x 1.5 years. Has a lot of headaches with the neck pain TECHNIQUE: Imaging protocol: Magnetic resonance imaging of the cervical spine without contrast. COMPARISON: CR XR CERVICAL SPINE 3V 09/29/2024 9:29 AM FINDINGS: Bones/joints: Unremarkable. No fracture. Normal alignment. Spinal cord: Normal signal. No cord compression. C2-C3: No significant disc bulge or herniation. No severe spinal canal stenosis. No significant neural foraminal narrowing. C3-C4: No significant disc bulge or herniation. No severe spinal canal stenosis. No significant neural foraminal narrowing. C4-C5: No significant disc bulge or herniation. No severe spinal canal stenosis. No significant neural foraminal narrowing. C5-C6: No significant disc bulge or herniation. No severe spinal canal stenosis. No significant neural foraminal narrowing. C6-C7: No significant disc bulge or herniation. No severe spinal canal stenosis. No significant neural foraminal narrowing. C7-T1: No significant disc bulge or herniation. No severe spinal canal stenosis. No significant neural foraminal narrowing. Soft tissues: Unremarkable. Vasculature: Expected flow voids in the vertebral arteries. IMPRESSION: Unremarkable spine.
== END 2024-10-10 23:59 | disposition home or self-care (01) ==
LOC: RAD 16:47
PROVIDERS: PCP Internal Medicine; Visit Provider Nurse Practitioner Family
DX: M54.2 Cervicalgia (principal)
CPT/HCPCS: 72141

== ENCOUNTER 2024-11-03 08:37 | Outpatient (POV) | payer BC, SELFPAY ==
--- NOTE | 2024-11-03 09:05 | EXP.PAIN.SOA ---
[facility] Disclaimer: The information contained in this section may have been updated after the patient was seen, as this information can be updated by other users. 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 Generalized anxiety disorder Recurrent major depression resistant to treatment Social History Smoking Status: Never smoker second hand exposure: Yes alcohol intake: never substance use type: denies use and marijuana current occupational status: other Travel in the last 8 weeks?: None household members: spouse housing: house number of children: 0 current occupation: [employer] current occupational exposures/hazards: No caffeine: Yes PM Subjective & Objective Subjective Subjective:: Patient is a pleasant 49-year-old female who presents today for follow-up of x-ray and MRI imaging of her cervical spine. Today she rates her pain a 5 out of 10. Patient denies any new trauma or injury. She does state that she does still continue to have neck pain that does radiate into the base of her head causing increased headaches and pressure. She does state that that pain is interfering with her ability perform activities of daily living such as cooking and cleaning. Patient does feel like it is almost as if like a pinching sensation. Patient has had this for longer than 6 months. Patient is managed with methocarbamol 500 mg 3 times a day and compounded cream. She denies any side effects. Patient does only take this as needed her Hood has been reviewed and is appropriate. Review of Systems: General: No recent weight changes, no fever, no sleep disturbances Respiratory: No cough, no shortness of air, no recurring pulmonary infections Cardiovascular/peripheral vascular: No chest pain, no palpitations, no edema, no shortness of breath Gastrointestinal: No new onset incontinence, normal bowel movements reported Genitourinary: No new onset incontinence Musculoskeletal: Neck pain, headaches, occipital pain Psychiatric: [Normal mood/affect] Neurological: [Denies weakness in extremities], [denies balance issues] Pain at rest (0-10 scale): 5 Objective Objective:: Physical Exam: General: Alert and oriented x3, no acute distress, pleasant and cooperative Lungs: Respirations even and unlabored, symmetrical chest expansion Eyes: PERRL Musculoskeletal: Flexion and extension of cervical [spine] somewhat guarded secondary to pain, point tenderness along left cervical paraspinous, left trapezius, bilateral occipital region Neurological: Speech clear, no gross sensory deficit Has patient had previous pain injection?: No Conservative treatment options previously tried: Home exercise plan Length of treatment: Longer than 12 weeks Meds Home Medications and Allergies Home Medications ?Medication ?Instructions ?Recorded ?Confirmed ?Type fluoxetine 40 mg capsule (Prozac) 40 mg PO DAILY #30 caps 07/02/22 10/19/24 Rx bupropion HCl 200 mg tablet,12 hr 200 mg PO DAILY 01/20/24 10/19/24 History sustained-release lamotrigine 150 mg tablet 150 mg PO DAILY 01/20/24 10/19/24 History omeprazole 40 mg capsule,delayed 40 mg PO DAILY 01/20/24 10/19/24 History release pen needle, diabetic 31 gauge x #1,200 ea 01/20/24 10/19/24 History 3/ (BD Ultra-Fine Mini Pen Needle) propranolol 10 mg tablet 10 mg PO ONCE 01/20/24 10/19/24 History metformin 500 mg tablet 1,000 mg (2 x 500 mg) PO DAILY 04/06/24 10/19/24 Rx Diabetes #180 tabs ferrous sulfate 325 mg (65 mg 325 mg PO BID #180 tabs 05/23/24 10/19/24 Rx iron) tablet amlodipine 5 mg tablet 5 mg PO DAILY #90 tabs 05/25/24 10/19/24 Rx bisoprolol fumarate 5 mg tablet See Rx Instructions .Route 07/27/24 10/19/24 Rx .COMPLEX #90 tabs lisinopril 40 mg tablet 40 mg PO DAILY High blood pressure 07/27/24 10/19/24 Rx #90 tabs Lantus Solostar U-100 Insulin 100 See Rx Instructions .Route 08/18/24 10/19/24 Rx unit/mL (3 mL) subcutaneous pen .COMPLEX #15 mL (insulin glargine) baclofen 5 mg tablet 5 mg PO TID #42 tabs 08/18/24 10/19/24 Rx blood-glucose sensor (Dexcom G7 #3 ea 10/05/24 10/19/24 Rx Sensor device) New Prescriptions to Start Prescriptions: Allergies Allergy/AdvReac Type Severity Reaction Status Date / Time No Known Allergies Allergy Verified 10/19/24 10:38 Assessment and Plan *Assessment and plan (1) Neck pain: Status: Acute Category: Medical Code(s): M54.2 - Cervicalgia (2) Myofascial pain: Status: Acute Category: Medical Code(s): M79.18 - Myalgia, other site (3) Occipital neuralgia: Status: Acute Category: Medical Code(s): M54.81 - Occipital neuralgia (4) Chronic headaches: Status: Acute Category: Medical Code(s): R51.9 - Headache, unspecified; G89.29 - Other chronic pain Plan Patient is experiencing worsening pain in and around her muscles on the left cervical paraspinous, left trapezius and bilateral occipital nerves. I did discuss with the patient due to her complaint of chronic headaches that do start at the base of her neck and comes to the back of her head right at the occipital region that she may benefit from occipital nerve blocks. Patient has had this pain for longer than 6 months. Risk and benefits were discussed with the patient and she would like to proceed forward with this plan of care. Patient has tried and failed conservative therapy including oral medications such as Tylenol and ibuprofen along with headache medications, heat and ice, topicals and at home stretching exercise for longer than 12 weeks. I did review over with her regarding her cervical x-ray and MRI. Patient will be scheduled for bilateral occipital nerve blocks without fluoroscopic or ultrasound guidance. Patient has been instructed to contact the clinic with any concerns before the next appointment. Dr. Tabor has reviewed this note and agrees with this plan of care. This note was dictated using voice recognition software and make contain errors or omissions. All injections are used with Lidocaine, Bupivacaine and dexamethasone. Occasionally urine drug screen is needed to verify patient's compliance with our office pain contract. This is ordered based off specific treatments related to chronic pain with the potential to abuse certain medications.
[2024-11-03 10:41] VITALS: BP 140/64; PULSE 65; RESP 18; O2SAT 97; BMI 41.3
== END 2024-11-03 23:59 | disposition home or self-care (01) ==
LOC: SC.PAIN 08:40
PROVIDERS: PCP Internal Medicine; Visit Provider Nurse Practitioner Family
DX: M54.2 Cervicalgia (principal); M79.18 Myalgia, other site; M54.81 Occipital neuralgia; R51.9 Headache, unspecified; G89.29 Other chronic pain; Z73.89 Other problems related to life management difficulty
CPT/HCPCS: 99212; G0463

== ENCOUNTER 2024-11-29 09:40 | Day surgery (SDC) | payer BC, SELFPAY ==
[2024-11-29 09:52] VITALS: BP 170/91; PULSE 79; RESP 16; TEMP 36.4; O2SAT 100; BMI 41.3
[2024-11-29] MEDS: DEXAMETHASONE 10MG/ML 1ML VIAL 10 MG (10:01)
[2024-11-29 10:02] VITALS: BP 141/72; PULSE 78; RESP 18; O2SAT 100
[2024-11-29] MEDS: LIDOCAINE 1% 5ML PF VIAL 5 ML (10:02)
[2024-11-29] MEDS: BUPIVACAINE 0.25% 10ML INJ 25 MG IJ (10:02)
[2024-11-29 10:05] VITALS: BP 141/72; PULSE 78; RESP 18; O2SAT 100
[2024-11-29 10:10] VITALS: BP 146/84; PULSE 77; RESP 16; O2SAT 99
--- NOTE | 2024-11-29 10:15 | P.PCN_ITS ---
Procedure Date: 11/29/24 Time: 10:00 Anesthesiologist:: Leopoldo Arenas CRNA Complications:: None Pre-procedure Diagnosis:: Bilateral occipital neuritis Post-procedure Diagnosis:: Same Indications for Procedure:: Patient is a very pleasant 49-year-old female comes our clinic today for bilater al occipital nerve injection. Patient describes occipital headaches that radiate into to the posterior cervical spine as well as bilateral traps at times. She rates her pain 7/10. Procedure Details:: Details of the procedure explained to the patient. The patient taken procedure and placed in sitting position. The area over the bilateral occipital nerve areas were cleaned with alcohol swab. Using a 25-gauge inch and half needle the right occipital nerve was accessed with ease. After negative aspiration 4 cc of 0.25% Marcaine +4 cc of 1% lidocaine and 5 mg of dexamethasone was injected. The same procedure was carried out over the left occipital nerve. Patient tolerated procedure without difficulty. No complications. Plan and Disposition:: Patient was discharged without incident.
== END 2024-11-29 10:10 | disposition home or self-care (01) ==
PROVIDERS: PCP Internal Medicine; Visit Provider Nurse Anesthetist, Certified Registered
DX: M54.81 Occipital neuralgia (principal)
CPT/HCPCS: 64405; J1100

== ENCOUNTER 2024-12-19 14:15 | Outpatient (POV) | payer BC, SELFPAY ==
--- OUTSIDE RECORDS SUMMARY | 2024-12-19 14:20 | XMS_ITS | Data Portability ---
Author Organization [place] [facility] [place] [facility] [place] [facility] Address [address] [place] [id number] Care Team Providers Care Test Skein Winder Name Role Phone RUTH PARRA Primary Care Provider Assessment Encounter Date Assessment Date Assessment LastModified by Organization Details LastModified Time 12/29/2023 12/29/2023 Mrs. Toro is a 48 yo lady with PMH of uncontrolled DM (on mounjaro, metformin, glipizide, lantus), depression, HTN, who presented recently for evaluation of GERD symptoms. Recent EGD showed esophagitis, gastroduodenitis, and incidental finding of grade [address] imaging was obtained that shows cirrhosis. 1) Cirrhosis: Etiology is not yet known. Obtain comprehensive lab workup of possible viral, autoimmune, metabolic, and hereditary causes of liver disease. -HCC screening: Obtain an AFP now. US liver in 6 months. -Calculate a MELD score. Plan for referral for transplant evaluation with MELD 15 or greater. -Ascites: None apparent at this time. 2 g daily sodium restriction counseled. -EV: Grade 2 on recent EGD. No banding performed at that time. Repeat in 6 months. -HE: None apparent at this time -Alcohol avoidance counseled. She denies alcohol use. -Prophylaxis: Will check for immunity to hepatitis A and B. Avoid NSAIDS. She may take acetaminophen not to exceed 2 grams in 24 hours. 2) Esophagitis: GERD symptoms are improved with change in PPI to omeprazole. No Hansen's metaplasia seen on GE junction biopsy. 3) Gastroduodenitis: Likely NSAID induced. I have instructed her to avoid NSAIDS moving forward due to liver disease and gastropathy. 4) Excessive belching: Likely due to GLP-1 agonist therapy 5) History of colon polyps: Repeat colonoscopy recommended 12/2026 due to 1 cm polyp. 6) Anemia: Check iron study, B12, Folate. EGD showed gastritis, possible early GAVE. f/u 4 weeks. [email or web address] Not available 12/30/2023 23:17:01 02/09/2024 02/09/2024 Mrs. Toro is a 48 yo female with PMH of uncontrolled DM (on mounjaro, metformin, glipizide, lantus), depression, HTN, who presented recently for evaluation of GERD symptoms. Recent EGD in evaluation of iron deficiency anemia showed esophagitis, gastroduodenitis, and incidental finding of grade [address] imaging was obtained that showed cirrhosis. No source of anemia was noted on EGD/colonoscopy. Comprehensive lab workup of cirrhosis showed complex heterozygous hemochromatosis, but with iron deficiency/low ferritin. 1) Cirrhosis: Suspect CARTER. Also with complex heterozygous hemochromatosis of unclear significance. She is currently iron deficient with low ferritin. No source of blood loss on EGD/colonoscopy. She is prescribed oral iron recently by her PCP. Consider referral to hematology pending PillCam Exam. She should be monitored closely for iron overload while on oral iron supplementation given HFE gene findings. -HCC screening: Obtain an AFP now. No liver lesion seen on recent CT. Plan for US liver 07/30 -MELD 3.0 -= 7. Plan for referral for transplant evaluation with MELD 15 or greater. -Ascites: None apparent at this time. 2 g daily sodium restriction counseled. -EV: Grade 2 on recent EGD. No banding performed at that time. Repeat 06/[address] Millard's recommendations. -HE: None apparent at this time -Alcohol avoidance counseled. She denies alcohol use. -Prophylaxis: Avoid NSAIDS. She may take acetaminophen not to exceed 2 grams in 24 hours. She notes multi joint pain not alleviated with tylenol. -Patient is immune to hepatitis A, not immune to hepatitis B. Start hepatitis B vaccination series in the office today. She will receive the 1st dose today and plan for 2nd dose at her 1 month follow-up. 2) Esophagitis: GERD symptoms are improved with change in PPI to omeprazole. No Hansen's metaplasia seen on GE junction biopsy. 3) Gastroduodenitis: Likely NSAID induced. I have instructed her to avoid NSAIDS moving forward due to liver disease and gastropathy. 4) Excessive belching: Likely due to GLP-1 agonist therapy 5) History of colon polyps: Repeat colonoscopy recommended 12/2026 due to 1 cm polyp. 6) Anemia: Normal B12, Folate. Patient is iron deficiency, on oral supplementation. EGD showed gastritis, possible early GAVE. -Will order small bowel follow-through and PillCam exam to rule out small bowel bleeding/angioecta randy. If negative, consider hematology referral regarding anemia requiring oral iron supplementation in the setting of complex heterozygous hemochromatosis. 7. Joint pains: She has difficulty managing this with only tylenol since we have advised her to avoid NSAIDS in the setting of cirrhosis. Refer to pain management to discuss further treatment options. f/u 4 weeks. [email or web address] Not available 02/09/2024 14:31:11 03/31/2024 03/31/2024 Mrs. Toro is a 49 yo female with PMH of uncontrolled DM (on mounjaro, metformin, glipizide, lantus), depression, HTN, who presented recently for evaluation of GERD symptoms. Recent EGD in evaluation of iron deficiency anemia showed esophagitis, gastroduodenitis, and incidental finding of grade [address] imaging was obtained that showed cirrhosis. No source of anemia was noted on EGD/colonoscopy. Comprehensive lab workup of cirrhosis showed complex heterozygous hemochromatosis, but with iron deficiency/low ferritin, and elevated ELF score. 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 Also with complex heterozygous hemochromatosis of unclear significance. She is currently iron deficient with low ferritin. No source of blood loss on EGD/colonoscopy. She is prescribed oral iron recently by her PCP. Consider referral to hematology pending PillCam Exam. She should be monitored closely for iron overload while on oral iron supplementation. -HCC screening: AFP normal. No liver lesion seen on recent CT. Plan for US liver 07/30 -MELD 3.0 -= 6. Plan for referral for transplant evaluation with MELD 15 or greater. -Ascites: None apparent at this time. 2 g daily sodium restriction counseled. -EV: Grade 2 on recent EGD. No banding performed at that time. Repeat 06/[address] Millard's recommendations. Will schedule EGD today. -HE: None apparent at this time -Alcohol avoidance counseled. She denies alcohol use. -Prophylaxis: Avoid NSAIDS. She may take acetaminophen not to exceed 2 grams in 24 hours. She notes multi joint pain not alleviated with tylenol. -Patient is immune to hepatitis A, and has started the vaccination series for hepatitis B. She will receive the 2nd dose today and plan for final dose at her 4 month follow-up. -Patient is prescribed GLP-1 agonist for weight loss. She will f/u with her PCP regarding possible dosing changes. 2) Esophagitis: GERD symptoms are improved with change in PPI to omeprazole. No Hansen's metaplasia seen on GE junction biopsy. 3) Gastroduodenitis: Likely NSAID induced. I have instructed her to avoid NSAIDS moving forward due to liver disease and gastropathy. 4) Excessive belching/occasiona l vomiting: Likely due to GLP-1 agonist therapy 5) History of colon polyps: Repeat colonoscopy recommended 12/2026 due to 1 cm polyp. 6) Anemia: Normal B12, Folate. Patient is iron deficiency, on oral supplementation. EGD showed gastritis, possible early GAVE. -Small bowel follow through was normal. Will schedule PillCam exam today. -If negative, will refer to hematology regarding anemia requiring oral iron supplementation in the setting of complex heterozygous hemochromatosis. 7) Joint pains: She has difficulty managing this with only tylenol since we have advised her to avoid NSAIDS in the setting of cirrhosis. She was not contacted by pain management after I referred her. Will resend the referral today. f/u 4 months [email or web address] Not available 03/31/2024 12:27:29 07/29/2024 07/29/2024 Mrs. Toro is a 49 yo female with PMH of uncontrolled DM (on mounjaro, metformin, glipizide, lantus), depression, HTN, who presented last year for evaluation of GERD symptoms. EGD in evaluation of iron deficiency anemia showed esophagitis, gastroduodenitis, and incidental finding of grade [address] imaging was obtained that showed cirrhosis. Possible GAVE was noted on EGD by Dr. Millard. Colonoscopy with no source of bleeding. Comprehensive lab workup of cirrhosis showed complex heterozygous hemochromatosis, but with iron deficiency/low ferritin, and elevated ELF score. 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 Also with complex heterozygous hemochromatosis of unclear significance. She is currently iron deficient with low ferritin. JENNIFER secondary to GAVE/extensive small bowel angioectasias.. She is prescribed oral iron recently by her PCP. She should be monitored closely for iron overload while on oral iron supplementation. -HCC screening: Obtain US liver ([facility]) and AFP now and q6 months -MELD 3.0 -= 6 at last appointment. Update labs now. Plan for referral for transplant evaluation with MELD 15 or greater. -Ascites: None apparent at this time. 2 g daily sodium restriction counseled. -EV: Grade 2 on [id number]. No banding performed at that time. She is taking Propranolol for other indication. -HE: None apparent at this time -Alcohol avoidance counseled. She denies alcohol use. -Prophylaxis: Avoid NSAIDS. She may take acetaminophen not to exceed 2 grams in 24 hours. -Patient is immune to hepatitis A, and will complete the hepatitis B vaccination series in the office today. -Patient is prescribed GLP-1 agonist for weight loss. She will f/u with her PCP regarding possible dosing changes. She has not had much weight loss with this. 2) GERD with Esophagitis: GERD symptoms are improved with change in PPI to omeprazole. No Hansen's metaplasia seen on GE junction biopsy. 3) History of colon polyps: Repeat colonoscopy recommended 12/2026 due to 1 cm polyp. 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 -I have recommended she reduce her oral iron supplement to every other day. -CBC/iron study now. -Monitor closely in the setting of complex heterozygous hemochromatosis. -Consider push enteroscopy with worsening anemia. 5) Hepatitis B non-immune: We will provide the final (3rd) dose of the hepatitis B vaccination in the office today. f/u 6 months [email or web address] Not available 07/29/2024 14:31:12 Plan of Treatment Reminders Order Date Submit Date Provider Last Modified By Organization Details Last Modified Time Details Appointments Establish ed Visit 15 min 2024 01:00P M Hugo Lowry PA-C Not available Not available Not available Lab CMP, serum or plasma 2024 025 CISCO [facility], [address], [address], [place], [address], 08/01/2024 16:09:43 CBC 2024 025 MANJULA [facility], [address], [address], [place], [address], 08/01/2024 16:09:44 PT/INR 2024 025 MANJULA [facility], [address], [address], [place], [address], 08/01/2024 16:09:45 afp (alpha-fe toprotein ) tumor marker, serum or plasma 2024 025 MANJULA [facility], [address], [address], [place], [address], 08/01/2024 16:09:46 iron + TIBC + ferritin, serum 2024 025 MANJULA [facility], [address], [address], [place], [address], 08/01/2024 16:09:42 CBC w/ auto diff 2023 024 [email or web address] [facility], [address], [address], [place], [address], 01/11/2024 13:42:36 CMP, serum or plasma 2023 024 [email or web address] [facility], [address], [address], [place], [address], 01/11/2024 13:42:37 PT/INR 2023 024 [email or web address] [facility], [address], [address], [place], [address], 01/11/2024 13:42:37 afp (alpha-fe toprotein ) tumor marker, serum or plasma 2023 024 [email or web address] 4 [facility], [address], [address], [place], [address], 01/11/2024 13:42:37 autoimmun e hepatitis diagnosti c panel, serum 2023 024 [email or web address] 4 [facility], [address], [address], [place], [address], 01/11/2024 13:42:37 iron + TIBC + ferritin, serum 2023 024 [email or web address] 4 [facility], [address], [address], [place], [address], 01/11/2024 13:42:37 HFE gene mutation analysis, blood or tissue 2023 024 [email or web address] 4 [facility], [address], [address], [place], [address], 01/11/2024 13:42:37 alpha 1 antitryps in phenotypi ng, serum or plasma 2023 024 [email or web address] 4 [facility], [address], [address], [place], [address], 01/11/2024 13:42:37 cerulopla smin, serum 2023 024 [email or web address] 4 [facility], [address], [address], [place], [address], 01/11/2024 13:42:38 hepatitis panel (A+B+C), acute, serum 2023 024 [email or web address] 4 [facility], [address], [address], [place], [address], 01/11/2024 13:42:38 hepatitis A virus Ab, qualitati ve, immunoass ay, serum 2023 024 [email or web address] 4 [facility], [address], [address], [place], [address], 01/11/2024 13:42:38 hepatitis B surface Ab, quantitat tutu, serum 2023 024 [email or web address] 4 [facility], [address], [address], [place], [address], 01/11/2024 13:42:38 liver fibrosis score, calculate d by ELF, serum or plasma 2023 024 [email or web address] 4 [facility], [address], [address], [place], [address], 01/11/2024 13:42:38 vitamin B12 + folate, serum or blood 2023 024 [email or web address] 4 [facility], [address], [address], [place], [address], 01/11/2024 13:42:38 Referral pain managemen t referral 2023 024 [email or web address] Chidi Tabor MD, [address] [place] [address], [facility], [place], [address], 05/02/2024 08:16:07 pain managemen t referral 2023 024 [email or web address] Chidi Tabor MD, [address] [place] [address], [facility], [place], [address], 02/09/2024 14:31:12 Procedures None recorded. Surgeries None recorded. Imaging US, liver 2024 025 [facility] (Scheduling), [address] [facility] [address], [place], [address], 08/04/2024 13:43:33 RF, small bowel follow-th rough study 2023 024 [email or web address] 4 [facility] (Scheduling), [address], [place], [address], 02/16/2024 16:01:49 Medication Orders esomepraz ole magnesium 40 mg capsule,d elayed release 2024 025 [email or web address] [facility], [address], [address], [place], [address], 07/29/2024 13:41:27 Patient TargetsNo targets recorded. Patient Instructions Encounter Date Encounter Id Patient Instructions Last Modified By Organization Details Last Modified Time 02/09/2024 [id number] hepatitis B vaccine: what you need to know [email or web address] Not available 02/09/2024 13:59:23 hepatitis B vaccine: care instructions [email or web address] Not available 02/09/2024 13:59:24 03/31/2024 [id number] hepatitis B vaccine: what you need to know [email or web address] Not available 03/31/2024 12:05:25 hepatitis B vaccine: care instructions [email or web address] Not available 03/31/2024 12:05:25 07/29/2024 [id number] hepatitis B vaccine: what you need to know [email or web address] Not available 07/29/2024 11:41:12 hepatitis B vaccine: care instructions [email or web address] Not available 07/29/2024 11:41:12 Reason for Referral Pain Management Referral for Pain of multiple joints Referring Physician: Hugo Lowry, Gastroenterology, Encounter Date: 02/09/2024 Pain Management Referral for Pain of multiple joints Referring Physician: Hugo Lowry Gastroenterology, Encounter Date: 03/31/2024 Results Created Date Observation Date Name Description Value Unit Range Abnormal Flag Note LastModifiedBy Organization Detail LastModifiedTime 12/29/1912/30/2023 FE+TI BC+FE R iron bind.cap.(TI BC) 402 ug/dL 250-45 0 Not Available [facility] ([facility]) [address] [facility], [place], [address], 01/14/2024 07:13:58 12/29/1912/30/2023 FE+TI BC+FE R UIBC 376 ug/dL 131-42 5 Not Available [facility] ([facility]) [address] [place], [address], 01/14/2024 07:13:58 12/29/19 24 12/30/2023 FE+TI BC+FE R iron 26 ug/dL 27-159 below low normal Not Available [facility] ([facility]) [address] [place], [address], 01/14/2024 07:13:58 12/29/19 24 12/30/2023 FE+TI BC+FE R iron saturation 6 % 15-55 alert low Not Available [facility] ([facility]) [address] [place], [address], 01/14/2024 07:13:58 12/29/19 24 12/30/2023 FE+TI BC+FE R ferritin 10 NG/mL 15-150 below low normal Not Available [facility] ([facility]) [address] [place], [address], 01/14/2024 07:13:58 12/29/19 24 12/30/2023 BETTY+A MA+ MA+LK M AB BETTY direct NEGATI VE negati ve Not Available [facility] ([facility]) [address] [place], [address], 01/14/2024 07:13:58 12/29/19 24 12/30/2023 BETTY+A MA+ MA+LK M AB actin (smooth muscle) antibody 4 units 0-19 Negat tutu 0 - 19 Weak posit tutu 20 - 30 Moder ate to stron g posit tutu >30 Actin Antib odies are found in 52-85 % of patie nts with autoi mmune hepat itis or chron ic activ e hepat itis and in 22% of patie nts with prima ry bilia ry cirrh osis. Not Available [facility] ([facility]) [address] [place], [address], 01/14/2024 07:13:58 12/29/19 24 12/30/2023 BETTY+A MA+ MA+LK M AB mitochondria l (M2) antibody <20.0 units 0.0-20 .0 Negat tutu 0.0 - 20.0 Equiv ocal 20.1 - 24.9 Posit tutu >24.9 Mitoc hondr ial (M2) Antib odies are found in 90-96 % of patie nts with prima ry bilia ry cirrh osis. Not Available [facility] ([facility]) [address] [place], [address], 01/14/2024 07:13:58 12/29/19 24 12/30/2023 BETTY+A MA+ MA+LK M AB liver-kidney microsomal Ab 1.0 units 0.0-20 .0 Negat tutu 0.0 - 20.0 Equiv ocal 20.1 - 24.9 Posit tutu >24.9 LKM type 1 antib odies are detec christian in patie nts with autoi mmune hepat itis type 2 and in up to 8% of patie nts with chron ic HCV infec tion. Not Available [facility] ([facility]) [address] [facility], [place], [address], 01/14/2024 07:13:58 12/29/19 24 12/30/2023 CBC WITH DIFFE RENTI AL/PL ATELE T WBC 5.7 x10e3 /uL 3.4-10 .8 Not Available [facility] ([facility]) [address] [place], [address], 01/14/2024 07:13:59 12/29/19 24 12/30/2023 CBC WITH DIFFE RENTI AL/PL ATELE T RBC 3.67 x10e6 /uL 3.77-5 .28 below low normal Not Available [facility] ([facility]) [address] [place], [address], 01/14/2024 07:13:59 06/25/20 24 12/30/2023 CBC WITH DIFFE RENTI AL/PL ATELE T hemoglobin 8.5 g/dL 11.1-1 5.9 below low normal Not Available [facility] ([facility]) [address] [place], [address], 01/14/2024 07:13:59 12/29/19 24 12/30/2023 CBC WITH DIFFE RENTI AL/PL ATELE T hematocrit 28.8 % 34.0-4 6.6 below low normal Not Available [facility] ([facility]) [address] [place], [address], 01/14/2024 07:13:59 12/29/19 24 12/30/2023 CBC WITH DIFFE RENTI AL/PL ATELE T MCV 79 fL 79-97 Not Available [facility] ([facility]) [address] [place], [address], 01/14/2024 07:13:59 12/29/19 24 12/30/2023 CBC WITH DIFFE RENTI AL/PL ATELE T MCH 23.2 pg 26.6-3 3.0 below low normal Not Available [facility] ([facility]) [address] [place], [address], 01/14/2024 07:13:59 12/29/19 24 12/30/2023 CBC WITH DIFFE RENTI AL/PL ATELE T MCHC 29.5 g/dL 31.5-3 5.7 below low normal Not Available [facility] ([facility]) [address] [place], [address], 01/14/2024 07:13:59 12/29/19 24 12/30/2023 CBC WITH DIFFE RENTI AL/PL ATELE T RDW 16.7 % 11.7-1 5.4 above high normal Not Available [facility] ([facility]) [address] [place], [address], 01/14/2024 07:13:59 12/29/19 24 12/30/2023 CBC WITH DIFFE RENTI AL/PL ATELE T platelets 165 x10e3 /uL 150-45 0 Not Available [facility] ([facility]) [address] [facility], [place], [address], 01/14/2024 07:13:59 12/29/19 24 12/30/2023 CBC WITH DIFFE RENTI AL/PL ATELE T neutrophils 52 % not estab. Not Available [facility] ([facility]) [address] [facility], [place], [address], 01/14/2024 07:13:59 12/29/19 24 12/30/2023 CBC WITH DIFFE RENTI AL/PL ATELE T lymphs 33 % not estab. Not Available [facility] ([facility]) [address] [facility], [place], [address], 01/14/2024 07:13:59 12/29/19 24 12/30/2023 CBC WITH DIFFE RENTI AL/PL ATELE T monocytes 7 % not estab. Not Available [facility] ([facility]) [address] [facility], [place], [address], 01/14/2024 07:13:59 12/29/19 24 12/30/2023 CBC WITH DIFFE RENTI AL/PL ATELE T eos 7 % not estab. Not Available [facility] ([facility]) [address] [facility], [place], [address], 01/14/2024 07:13:59 12/29/19 24 12/30/2023 CBC WITH DIFFE RENTI AL/PL ATELE T basos 1 % not estab. Not Available [facility] ([facility]) [address] [facility], [place], [address], 01/14/2024 07:13:59 12/29/19 24 12/30/2023 CBC WITH DIFFE RENTI AL/PL ATELE T immature cells TE[employer]ER OF THE DEAF/HARD OF HEARING Not Available [facility] ([facility]) [address] [facility], [place], [address], 01/14/2024 07:13:59 12/29/19 24 12/30/2023 CBC WITH DIFFE RENTI AL/PL ATELE T neutrophils (absolute) 3.0 x10e3 /uL 1.4-7. 0 Not Available [facility] ([facility]) [address] [place], [address], 01/14/2024 07:13:59 12/29/19 24 12/30/2023 CBC WITH DIFFE RENTI AL/PL ATELE T lymphs (absolute) 1.9 x10e3 /uL 0.7-3. 1 Not Available [facility] ([facility]) [address] [place], [address], 01/14/2024 07:13:59 12/29/19 24 12/30/2023 CBC WITH DIFFE RENTI AL/PL ATELE T monocytes(ab solute) 0.4 x10e3 /uL 0.1-0. 9 Not Available [facility] ([facility]) [address] [place], [address], 01/14/2024 07:13:59 12/29/19 24 12/30/2023 CBC WITH DIFFE RENTI AL/PL ATELE T eos (absolute) 0.4 x10e3 /uL 0.0-0. 4 Not Available [facility] ([facility]) [address] [place], [address], 01/14/2024 07:13:59 12/29/19 24 12/30/2023 CBC WITH DIFFE RENTI AL/PL ATELE T baso (absolute) 0.1 x10e3 /uL 0.0-0. 2 Not Available [facility] ([facility]) [address] [place], [address], 01/14/2024 07:13:59 12/29/19 24 12/30/2023 CBC WITH DIFFE RENTI AL/PL ATELE T immature granulocytes 0 % not estab. Not Available [facility] ([facility]) [address] [facility], [place], [address], 01/14/2024 07:13:59 12/29/19 24 12/30/2023 CBC WITH DIFFE RENTI AL/PL ATELE T immature grans (abs) 0.0 x10e3 /uL 0.0-0. 1 Not Available [facility] ([facility]) [address] [facility], [place], [address], 01/14/2024 07:13:59 12/29/19 24 12/30/2023 CBC WITH DIFFE RENTI AL/PL ATELE T NRBC [employer] OF [employer] DEAF/HARD OF HEARING Not Available [facility] ([facility]) [address] [facility], [place], [address], 01/14/2024 07:13:59 12/29/19 24 12/30/2023 CBC WITH DIFFE RENTI AL/PL ATELE T hematology comments: TE[employer]ER OF THE DEAF/HARD OF HEARING Not Available [facility] ([facility]) [address] [facility], [place], [address], 01/14/2024 07:13:59 12/29/19 24 12/30/2023 COMP. METAB OLIC PANEL (14) glucose 113 mg/dL 70-99 above high normal Not Available [facility] ([facility]) [address] [facility], [place], [address], 01/14/2024 07:13:59 12/29/19 24 12/30/2023 COMP. METAB OLIC PANEL (14) BUN 14 mg/dL 6-24 Not Available [facility] ([facility]) [address] [facility], [place], [address], 01/14/2024 07:13:59 12/29/19 24 12/30/2023 COMP. METAB OLIC PANEL (14) creatinine 0.95 mg/dL 0.57-1 .00 Not Available [facility] ([facility]) [address] [facility], [place], [address], 01/14/2024 07:13:59 12/29/19 24 12/30/2023 COMP. METAB OLIC PANEL (14) eGFR 74 mL/mi n/1.7 3 >59 Not Available [facility] ([facility]) [address] [facility] [place], [address], 01/14/2024 07:13:59 12/29/19 24 12/30/2023 COMP. METAB OLIC PANEL (14) BUN/creatini ne ratio 15 9-23 Not Available [facility] ([facility]) [address] [facility] [place], [address], 01/14/2024 07:13:59 12/29/19 24 12/30/2023 COMP. METAB OLIC PANEL (14) sodium 139 mmol/ L 134-14 4 Not Available [facility] ([facility]) [address] [facility] [place], [address], 01/14/2024 07:13:59 12/29/19 24 12/30/2023 COMP. METAB OLIC PANEL (14) potassium 3.5 mmol/ L 3.5-5. 2 Not Available [facility] ([facility]) [address] [facility] [place], [address], 01/14/2024 07:13:59 12/29/19 24 12/30/2023 COMP. METAB OLIC PANEL (14) chloride 103 mmol/ L 96-106 Not Available [facility] ([facility]) [address] [facility] [place], [address], 01/14/2024 07:13:59 12/29/19 24 12/30/2023 COMP. METAB OLIC PANEL (14) carbon dioxide, total 22 mmol/ L 20-29 Not Available [facility] ([facility]) [address] [facility] [place], [address], 01/14/2024 07:13:59 12/29/19 24 12/30/2023 COMP. METAB OLIC PANEL (14) calcium 8.8 mg/dL 8.7-10 .2 Not Available [facility] ([facility]) [address] [facility], [place], [address], 01/14/2024 07:13:59 12/29/19 24 12/30/2023 COMP. METAB OLIC PANEL (14) protein, total 6.8 g/dL 6.0-8. 5 Not Available [facility] ([facility]) [address] [facility] [place], [address], 01/14/2024 07:13:59 12/29/19 24 12/30/2023 COMP. METAB OLIC PANEL (14) albumin 3.8 g/dL 3.9-4. 9 below low normal Not Available [facility] ([facility]) [address] [facility], [place], [address], 01/14/2024 07:13:59 12/29/19 24 12/30/2023 COMP. METAB OLIC PANEL (14) globulin, total 3.0 g/dL 1.5-4. 5 Not Available [facility] ([facility]) [address] [facility], [place], [address], 01/14/2024 07:13:59 12/29/19 24 12/30/2023 COMP. METAB OLIC PANEL (14) bilirubin, total 0.4 mg/dL 0.0-1. 2 Not Available [facility] ([facility]) [address] [facility] [place], [address], 01/14/2024 07:13:59 12/29/19 24 12/30/2023 COMP. METAB OLIC PANEL (14) alkaline phosphatase 111 IU/L 44-121 Not Available [facility] ([facility]) [address] [facility] [place], [address], 01/14/2024 07:13:59 12/29/19 24 12/30/2023 COMP. METAB OLIC PANEL (14) AST (SGOT) 14 IU/L 0-40 Not Available [facility] ([facility]) [address] [facility], [place], [address], 01/14/2024 07:13:59 12/29/19 24 12/30/2023 COMP. METAB OLIC PANEL (14) ALT (SGPT) 7 IU/L 0-32 Not Available [facility] ([facility]) [address] [facility], [place], [address], 01/14/2024 07:13:59 12/29/19 24 12/30/2023 ACUTE HEPAT ITIS hep A Ab, IgM NEGATI VE negati ve Not Available [facility] ([facility]) [address] [facility], [place], [address], 01/14/2024 07:14:00 12/29/19 24 12/30/2023 ACUTE HEPAT ITIS HBsAg screen NEGATI VE negati ve Not Available [facility] ([facility]) [address] [facility], [place], [address], 01/14/2024 07:14:00 12/29/19 24 12/30/2023 ACUTE HEPAT ITIS hep B core Ab, IgM NEGATI VE negati ve Not Available [facility] ([facility]) [address] [facility], [place], [address], 01/14/2024 07:14:00 12/29/19 24 12/30/2023 ACUTE HEPAT ITIS HCV Ab NON REACTI VE non reacti ve Not Available [facility] ([facility]) [address] [place], [address], 01/14/2024 07:14:00 12/29/19 24 12/30/2023 ACUTE HEPAT ITIS interpretati on: COMMEN T Not infec christian with HCV unles s early or acute infec tion is suspe cted (whic h may be delay ed in an immun ocomp romis ed indiv idual ), or other evide nce exist s to indic ate HCV infec tion. Not Available [facility] ([facility]) [address] [facility], [place], [address], 01/14/2024 07:14:00 12/29/19 24 12/30/2023 PROTH ROMBI N TIME (PT), SERIA L INR 1.0 0.9-1. 2 Refer ence inter alfredo is for non-a ntico agula christian patie nts. Sugge sted INR thera peuti c range for Vitam in K antag onist thera py: Stand hansel Dose (mode rate inten sity thera peuti c range ): 2.0 - 3.0 Highe r inten sity thera peuti c range 2.5 - 3.5 Not Available [facility] ([facility]) [address] [facility], [place], [address], 01/14/2024 07:14:00 12/29/19 24 12/30/2023 PROTH ROMBI N TIME (PT), SERIA L prothrombin time 11.1 sec 9.1-12 .0 Not Available [facility] ([facility]) [address] [facility], [place], [address], 01/14/2024 07:14:00 12/29/19 24 12/30/2023 PROTH ROMBI N TIME (PT), SERIA L pdf . Not Available [facility] ([facility]) [address] [place], [address], 01/14/2024 07:14:00 12/29/19 24 12/31/2023 ENHAN ELOY LIVER FIBRO SIS (ELF) elf(tm) score 11.09 <9.80 above high normal ELF(T M) Score Inter preta tion: Risk cut-o ffs to asses s the likel ihood of progr essio n to cirrh osis and liver -rela christian clini kimberley event s withi n 3.9 years follo wing basel ine ELF score (IQR: 14.0- 22.4 month s)*: Lower risk < 9.80 Mid risk 9.80 - 11.29 Highe r risk >11.2 9 Note: The ELF(T M) Score is a unitl ess numer ical value . *Caren tejada SA, Jr VW, Lana hi T, et al. Selon serti b for patie nts with bridg ing fibro sis or compe nsate d cirrh osis due to CARTER: [facility]ul [facility] phase III SHIRA AR trial s. J Hepat ol. 2019;7 3(1): 26-39 . Not Available [facility] ([facility]) [address] [place], [address], 01/14/2024 07:14:01 12/29/19 24 12/30/2023 VITAM IN B12 AND FOLAT E vitamin B12 424 pg/mL 232-12 45 Not Available [facility] ([facility]) [address] [place], [address], 01/14/2024 07:14:01 12/29/19 24 12/30/2023 VITAM IN B12 AND FOLAT E folate (folic acid), serum 8.6 NG/mL >3.0 A serum folat e ethan ntrat ion of less than 3.1 ng/mL is consi dered to repre sent clini kimberley defic iency . Not Available [facility] ([facility]) [address] [place], [address], 01/14/2024 07:14:01 12/29/19 24 12/30/2023 ALPHA -1-AN TITRY PSIN PHENO TYP [id number] trypsin, serum 199 mg/dL 101-18 7 above high normal Not Available [facility] ([facility]) [address] [place], [address], 01/14/2024 07:14:02 12/29/19 24 01/04/2024 ALPHA -1-AN TITRY PSIN PHENO TYP phenotype (pi) MM MM Pheno type is consi dered to be norm al , produ cing grupo l serum level s of alpha -1-pr oteas e inhib itor and not assoc iated with clini kimberley disea se. Assoc iated A1A total serum level s in other pheno types and their incid ence in the gener al popul ation are shown in the table below . Pheno type Popul ation % funct ion A-1-A T Conc. * Incid ence % charleen red to MM (Typi kimberley Range ) MM 86.5% 100% (96 - 189) MS 8.0% 86% (83 - 161) MZ 3.9% 61% (60 - 111) FM 0.4% 100% (93 - 191) SZ 0.3% 41% (42 - 75) SS 0.1% 64% (62 - 119) ZZ 0.05% 19% (16 - 38) FS 0.05% 70% (70 - 128) FZ Unkno wn 46% (44 - 88) FF Unkno wn Unkno wn *A-1- AT ethan ntrat ion in the homoz ygous MM pheno type is taken as the refer ence grupo l. Perce nt defic iency in each pheno type is repor christian relat tutu to this refer ence. Range s used to confi rm pheno type. Not Available [facility] ([facility]) [address] [facility], [place], [address], 01/14/2024 07:14:02 12/29/19 24 01/13/2024 HERED .HEMO CHROM ATOSI S, DNA hereditary hemochromato sis COMMEN T Resul ts: c.845 G>A (p.Cy s282T yr) - Not detec christian c.187 C>G (p.Hi s63As p) - Detec christian, heter ozygo us c.193 A>T (p.Se r65Cy s) - Detec christian, heter ozygo us Not assoc iated with incre ased risk to devel op clini kimberley sympt oms of Hered itary Hemoc hroma tosis . In sympt omati c indiv idual s, other cause s of iron overl oad shoul d be evalu ated. See Addit ional Infor matio n and Comme nts. Addit ional Clini kimberley Infor matio n: Hered itary hemoc hroma tosis (HFE relat ed) is an autos omal reces sive iron stora ge disor rosemary. Patie nts may have a rigo ic diagn osis of hered itary hemoc hroma tosis and never show clini kimberley sympt oms. Clini kimberley sympt oms typic ally appea r betwe en 40 to 60 years in males and after menop ause in femal es. Signs and sympt oms may inclu de organ damag e, prima rily in the liver , risk for hepat ocell ular carci noma, diabe yris, and heart disea se due to iron accum ulati on. Life expec tancy may be decre ased in indiv idual s who devel op cirrh osis. Treat ment for clini sherly sympt omati c indiv idual s may inclu de thera peuti c phleb otomy . Liver trans plant may be used to treat end stage liver failu re. For preve ntive care, monit oring for iron overl oad is recom ofelia d for patie nts who are homoz ygous for c.845 G>A (p.Cy s282T yr) and have yet to exper ience clini kimberley sympt oms. Comme nts: The most commo n HFE varia nts assoc iated with hered itary hemoc hroma tosis are c.845 G>A (p.Cy s282T yr), c.187 C>G (p.Hi s63As p), c.193 A>T (p.Se r65Cy s). While patie nts homoz ygous for c.845 G>A (p.Cy s282T yr) are the most likel y to prese nt clini kimberley sympt oms, less than 10% devel op clini sherly signi fican t iron overl oad with tissu e and organ damag e. Rigo ic couns eling is recom ofelia d to discu ss the poten tial clini kimberley impli catio ns of posit tutu resul ts, as well as recom menda tions for testi ng famil y membe rs. Rigo ic Coord inato rs are avail able for healt h care provi ders to discu ss resul ts at [phone] Test Detai ls: Three varia nts charissa zed: c.845 G>A (p.Cy s282T yr), commo nly refer red to as C282Y c.187 C>G (p.Hi s63As p), commo nly refer red to as H63D c.193 A>T (p.Se r65Cy s), commo nly refer red to as S65C Metho ds/Li mitat ions: DNA Charissa sis of the HFE gene ([id number]) was perfo rmed by PCR ampli ficat ion follo wed by restr ictio n enzym e diges tion charissa ses. Resul ts must be combi alexandra with clini kimberley infor matio n for the most accur ate inter preta tion. Molec ular- based testi ng is highl y accur ate, but as in any labor atory test, diagn ostic error s may occur . False posit tutu or false negat tutu resul ts may occur for reaso ns that inclu de rigo ic varia nts, blood trans fusio ns, bone marro w trans plant ation , somat ic or tissu e-spe cific mosai cism, misla beled sampl es, or otilio eous repre senta tion of famil y relat ionsh ips. This test was devel oped and its perfo rmanc e noemy cteri stics deter mined by [facility]. It has not been clear ed or appro nestor by the Food and Drug Admin istra tion. Refer ences : Jonathan BR, Nikita PC, Adnreel ey KV, Heather veliz LW, Marybeth veliz ; [employer] [employer] i[employer] n for the Study of Liver Disea ses. Diagn osis and manag ement of hemoc hroma tosis : 2010 pract ice guide line by the Randi can Assoc iatio n for the Study of Liver Disea ses. Hepat ology . 2010;5 4(1): 328-4 3. doi: 10.10 02/ p.243 30. PMID: 37397 290; PMCID : PMC31 72510 . Linn G, Wally guzman P, Lenin cha DW, Alice r H, Og gonzalez O, Chente n S, Alleana o I, Chel s M, Halima y S. EMQN best pract ice guide lines for the molec ular rigo ic diagn osis of hered itary hemoc hroma tosis (HH). Eur J Hum Rigo . 2016 Oct;2 4(4): 479-9 5. doi: 10.10 /ej hg.20 15.12 8. Epub 2014Jan 10. PMID: 04484 218; PMCID : PMC49 33494 . Not Available [facility] ([facility]) [address] [place], [address], 01/14/2024 07:14:02 12/29/19 24 01/13/2024 HERED .HEMO CHROM ATOSI S, DNA reviewed by: MEGAN Vaughn, Ph.D. , [facility] Not Available [facility] ([facility]) [address] [place], [address], 01/14/2024 07:14:02 12/29/19 24 12/30/2023 AFP, SERUM , TUMOR MARKE R AFP, serum, tumor marker 2.6 NG/mL 0.0-6. 4 Ced Diagn ostic s Elect ced milum inesc ence Immun oassa y (ECLI A) Value s obtai alexandra with diffe rent assay metho ds or kits canno t be used inter ware eably . Resul ts canno t be inter prete d as absol phoenix evide nce of the prese nce or absen ce of prachi nant disea se. This test is not inter preta ble in pregn ant femal es. Not Available [facility] ([facility]) [address] [place], [address], 01/14/2024 07:14:03 12/29/19 24 12/30/2023 HEPAT ITIS B SURF AB QUANT hepatitis B surf Ab quant <3.1 mIU/m L immuni ty>9.9 below low normal Statu s of Immun ity Anti- HBs Level ----- ----- ----- --- ----- ----- ---- Incon siste nt with Immun ity 0.0 - 9.9 Consi stent with Immun ity >9.9 Eff ectiv e January 04, 2024 the refer ence inter alfredo will be ware ing to: Immun ity >10 Not Available [facility] ([facility]) [address] [facility], [place], [address], 01/14/2024 07:14:03 12/29/19 24 12/30/2023 CERUL OPLAS MIN ceruloplasmi n 31.4 mg/dL 19.0-3 9.0 Not Available [facility] ([facility]) [address] [facility], [place], [address], 01/14/2024 07:14:04 12/29/19 24 12/30/2023 HEP A AB, TOTAL hep A Ab, total POSITI VE negati ve abnormal Comme nt: The HAV total antib paul assay detec ts both IgG and IgM but does not diffe renti ate betwe en them. A negat tutu resul t sugge sts susce ptibi lity to infec tion. A posit tutu resul t could be due to vacci natio n, previ ously resol nestor infec tion or activ e infec tion. Testi ng for HAV IgM shoul d be perfo rmed if activ e HAV infec tion is suspe cted. [facility] offer s profi les that will autom atica lly refle x posit tutu HAV total antib paul resul ts to IgM (e.g. , panel #[id number] HAV Antib paul w/ Rfx). Not Available [facility] ([facility]) [address] [place], [address], 01/14/2024 07:14:04 07/29/19 25 07/30/2024 FE+TI BC+FE R iron bind.cap.(TI BC) 270 ug/dL 250-45 0 normal Not Available [facility] ([facility]) [address] [place], [address], 08/01/2024 16:09:42 07/29/19 25 07/30/2024 FE+TI BC+FE R UIBC 200 ug/dL 131-42 5 normal Not Available [facility] ([facility]) [address] [place], [address], 08/01/2024 16:09:42 07/29/19 25 07/30/2024 FE+TI BC+FE R iron 70 ug/dL 27-159 normal Not Available [facility] ([facility]) [address] [place], [address], 08/01/2024 16:09:42 07/29/19 25 07/30/2024 FE+TI BC+FE R iron saturation 26 % 15-55 normal Not Available [facility] ([facility]) [address] [place], [address], 08/01/2024 16:09:42 07/29/19 25 07/30/2024 FE+TI BC+FE R ferritin 45 NG/mL 15-150 normal Not Available [facility] ([facility]) [address] [place], [address], 08/01/2024 16:09:42 07/29/19 25 07/30/2024 COMP. METAB OLIC PANEL (14) glucose 86 mg/dL 70-99 normal Not Available [facility] ([facility]) [address] [place], [address], 08/01/2024 16:09:43 07/29/19 25 07/30/2024 COMP. METAB OLIC PANEL (14) BUN 12 mg/dL 6-24 normal Not Available [facility] ([facility]) [address] [facility] [place], [address], 08/01/2024 16:09:43 07/29/19 25 07/30/2024 COMP. METAB OLIC PANEL (14) creatinine 0.95 mg/dL 0.57-1 .00 normal Not Available [facility] ([facility]) [address] [facility] [place], [address], 08/01/2024 16:09:43 07/29/19 25 07/30/2024 COMP. METAB OLIC PANEL (14) eGFR 73 mL/mi n/1.7 3 >59 normal Not Available [facility] ([facility]) [address] [facility] [place], [address], 08/01/2024 16:09:43 07/29/19 25 07/30/2024 COMP. METAB OLIC PANEL (14) BUN/creatini ne ratio 13 9-23 normal Not Available [facility] ([facility]) [address] [facility] [place], [address], 08/01/2024 16:09:43 07/29/19 25 07/30/2024 COMP. METAB OLIC PANEL (14) sodium 143 mmol/ L 134-14 4 normal Not Available [facility] ([facility]) [address] [facility] [place], [address], 08/01/2024 16:09:43 07/29/19 25 07/30/2024 COMP. METAB OLIC PANEL (14) potassium 3.8 mmol/ L 3.5-5. 2 normal Not Available [facility] ([facility]) [address] [facility] [place], [address], 08/01/2024 16:09:43 07/29/19 25 07/30/2024 COMP. METAB OLIC PANEL (14) chloride 108 mmol/ L 96-106 above high normal Not Available [facility] ([facility]) [address] [facility] [place], [address], 08/01/2024 16:09:43 07/29/19 25 07/30/2024 COMP. METAB OLIC PANEL (14) carbon dioxide, total 22 mmol/ L 20-29 normal Not Available [facility] ([facility]) [address] [place], [address], 08/01/2024 16:09:43 07/29/19 25 07/30/2024 COMP. METAB OLIC PANEL (14) calcium 9.0 mg/dL 8.7-10 .2 normal Not Available [facility] ([facility]) [address] [place], [address], 08/01/2024 16:09:43 07/29/19 25 07/30/2024 COMP. METAB OLIC PANEL (14) protein, total 6.1 g/dL 6.0-8. 5 normal Not Available [facility] ([facility]) [address] [facility] [place], [address], 08/01/2024 16:09:43 07/29/19 25 07/30/2024 COMP. METAB OLIC PANEL (14) albumin 3.7 g/dL 3.9-4. 9 below low normal Not Available [facility] ([facility]) [address] [facility] [place], [address], 08/01/2024 16:09:43 07/29/19 25 07/30/2024 COMP. METAB OLIC PANEL (14) globulin, total 2.4 g/dL 1.5-4. 5 Not Available [facility] ([facility]) [address] [facility] [place], [address], 08/01/2024 16:09:43 07/29/19 25 07/30/2024 COMP. METAB OLIC PANEL (14) bilirubin, total 0.3 mg/dL 0.0-1. 2 normal Not Available [facility] ([facility]) [address] [facility] [place], [address], 08/01/2024 16:09:43 07/29/19 25 07/30/2024 COMP. METAB OLIC PANEL (14) alkaline phosphatase 110 IU/L 44-121 normal Not Available [facility] ([facility]) [address] [facility] [place], [address], 08/01/2024 16:09:43 07/29/19 25 07/30/2024 COMP. METAB OLIC PANEL (14) AST (SGOT) 14 IU/L 0-40 normal Not Available [facility] ([facility]) [address] [facility] [place], [address], 08/01/2024 16:09:43 07/29/19 25 07/30/2024 COMP. METAB OLIC PANEL (14) ALT (SGPT) 14 IU/L 0-32 normal Not Available [facility] ([facility]) [address] [facility], [place], [address], 08/01/2024 16:09:43 07/29/19 25 07/30/2024 CBC, PLATE LET, NO DIFFE RENTI AL WBC 7.3 x10e3 /uL 3.4-10 .8 normal Not Available [facility] ([facility]) [address] [facility] [place], [address], 08/01/2024 16:09:44 07/29/19 25 07/30/2024 CBC, PLATE LET, NO DIFFE RENTI AL RBC 3.84 x10e6 /uL 3.77-5 .28 normal Not Available [facility] ([facility]) [address] [facility] [place], [address], 08/01/2024 16:09:44 07/29/19 25 07/30/2024 CBC, PLATE LET, NO DIFFE RENTI AL hemoglobin 12.7 g/dL 11.1-1 5.9 normal Not Available [facility] ([facility]) [address] [facility] [place], [address], 08/01/2024 16:09:44 07/29/1907/30/2024 CBC, PLATE LET, NO DIFFE RENTI AL hematocrit 37.9 % 34.0-4 6.6 normal Not Available [facility] ([facility]) [address] [facility], [place], [address], 08/01/2024 16:09:44 07/29/1907/30/2024 CBC, PLATE LET, NO DIFFE RENTI AL MCV 99 fL 79-97 above high normal Not Available [facility] ([facility]) [address] [place], [address], 08/01/2024 16:09:44 07/29/1907/30/2024 CBC, PLATE LET, NO DIFFE RENTI AL MCH 33.1 pg 26.6-3 3.0 above high normal Not Available [facility] ([facility]) [address] [facility], [place], [address], 08/01/2024 16:09:44 07/29/1907/30/2024 CBC, PLATE LET, NO DIFFE RENTI AL MCHC 33.5 g/dL 31.5-3 5.7 normal Not Available [facility] ([facility]) [address] [place], [address], 08/01/2024 16:09:44 07/29/1907/30/2024 CBC, PLATE LET, NO DIFFE RENTI AL RDW 13.0 % 11.7-1 5.4 Not Available [facility] ([facility]) [address] [place], [address], 08/01/2024 16:09:44 07/29/1907/30/2024 CBC, PLATE LET, NO DIFFE RENTI AL platelets 158 x10e3 /uL 150-45 0 normal Not Available [facility] ([facility]) [address] [place], [address], 08/01/2024 16:09:44 07/29/19 25 07/30/2024 CBC, PLATE LET, NO DIFFE RENTI AL NRBC TEACHER OF THE DEAF/HARD OF HEARING Not Available [facility] ([facility]) [address] [place], [address], 08/01/2024 16:09:44 07/29/19 25 07/30/2024 PROTH ROMBI N TIME (PT), SERIA L INR 1.0 0.9-1. 2 Refer ence inter alfredo is for non-a ntico agula christian patie nts. Sugge sted INR thera peuti c range for Vitam in K antag onist thera py: Stand hansel Dose (mode rate inten sity thera peuti c range ): 2.0 - 3.0 Highe r inten sity thera peuti c range 2.5 - 3.5 Not Available [facility] ([facility]) [address] [place], [address], 08/01/2024 16:09:45 07/29/19 25 07/30/2024 PROTH ROMBI N TIME (PT), SERIA L prothrombin time 10.8 sec 9.1-12 .0 normal Not Available [facility] ([facility]) [address] [place], [address], 08/01/2024 16:09:45 07/29/1908/01/2024 PROTH ROMBI N TIME (PT), SERIA L pdf . Not Available [facility] ([facility]) [address] [place], [address], 08/01/2024 16:09:45 07/29/1907/30/2024 AFP, SERUM , TUMOR MARKE R AFP, serum, tumor marker <1.8 NG/mL 0.0-6. 4 Ced Diagn ostic s Elect ced milum inesc ence Immun oassa y (ECLI A) Value s obtai alexandra with diffe rent assay metho ds or kits canno t be used inter ware eamanjindery . Resul ts canno t be inter prete d as absol ph[place]enix evide nce of the prese nce or absen ce of prachi bowens se. This test is not inter preta ble in pregn ant femal es. Not Available [facility] ([facility]) [address] [facility], [place], [address], 08/01/2024 16:09:46 03/28/20 24 03/24/2024 RF, small bowel , w/ contr ast PO [facility] [address] [place] [address] Phone: Fax: Name: BETHANY HOWARD Exam Date: 024 : [birth year] Age 49 years Gender : F Access ion: [id number] Physic norma: HUGO LOWRY Facili ty: [facility] Facili ty HSV: Outpat ient Exam: SMALL BOWEL SERIES EXAM: SMALL BOWEL SERIES INDICA TION: anemia COMPAR WILLIAM: CT abdome n and pelvis with contra st 12/11/19 24. FINDIN GS: The proced ure was explai alexandra to the patien t and verbal consen t was obtain ed. The prelim inary abdomi nal radiog raph reveal s a normal bowel gas patter n. The visual ized osseou s struct ures are unrema rkable . After admini strati on of barium , multip le fluoro scopic spot images and overhe ad images were obtain ed of the small bowel. There was normal perist alsis and transi t of contra st throug h the small bowel to the proxim al colon. No strict ures or small bowel dilata tion is seen. There are no fillin g defect s. No abnorm al extrin sic impres sions are presen t. No fixed loops are seen to sugges t adhesi ons. The termin al ileum is normal in appear ance. IMPRES DARRYL: Normal small bowel series . Electr onical ly signed by:Corin Viramontes MD03/07 03:17 PM EDT RP Workst ation: [id number] Dictat ed By: Justo Viramontes Transc ribed By: Transc ribed On: 4:31 PM Electr onical ly signed by: Justo Viramontes Thank you for referr BETHANY Ross to [facility]. Legall y authen ticate d by LOVELY RAMESH 03-24 16:31: 55 CC'ed Logic: Orderi ng Provid er: TAYLOR GAITHERSBURG Attend ing Provid er: LOWRY GAITHERSBURG Admitt ing Provid er: [facility] [email or web address] [facility] - Physical Therapy [address] [place] [address], [place], [address], 06/23/2024 08:37:32 08/04/19 25 08/04/2024 US, liver No observ ation record ed. [place] [id number] [facility] [address], [place], [address], 08/08/2024 15:52:21 08/04/19 25 08/04/2024 XR, chest , 2 view No observ ation record ed. [address] [facility] [address], [place], [address], 08/09/2024 08:42:44 Result Notes Documentation Provider Name and Address Organization Details Recorded Time Rf, Small Bowel, W/ Contrast Po : [facility] [address] [place] [address] Name: BETHANY TORO Exam Date: 03/24/2024 : 1975 Age 49 years Gender: F Physician: HUGO LOWRY Facility: [facility] Facility HSV: Outpatient Exam: SMALL BOWEL SERIES EXAM: SMALL BOWEL SERIES INDICATION: anemia COMPARISON: CT abdomen and pelvis with contrast 12/11/2023. FINDINGS: The procedure was explained to the patient and verbal consent was obtained. The preliminary abdominal radiograph reveals a normal bowel gas pattern. The visualized osseous structures are unremarkable. After administration of barium, multiple fluoroscopic spot images and overhead images were obtained of the small bowel. There was normal peristalsis and transit of contrast through the small bowel to the proximal colon. No strictures or small bowel dilatation is seen. There are no filling defects. No abnormal extrinsic impressions are present. No fixed loops are seen to suggest adhesions. The terminal ileum is normal in appearance. IMPRESSION: Normal small bowel series. Electronically signed by:Justo Viramontes MD03/28/2024 03:17 PM EDT RP Dictated By: Justo Viramontes Transcribed By: Transcribed On: 03/24/2024 4:31 PM Electronically signed by: Justo Viramontes 03/24/2024 Thank you for referring BETHANY TORO to [facility]. Legally authenticated by LOVELY RAMESH 2024-03-24 16:31:55 CC'ed Logic: Ordering Provider: TAYLOR MOSHER Attending Provider: TAYLOR MOSHER Admitting Provider: TAYLOR Lowry PA-C [address], [place], [address], [place] [facility] [place] [facility] [place] 06/23/2024 08:37:33 Problems Name Problem SNOMED Code Status Onset Date Resolution Date Notes Provider Name and Address Organization Details Recorded Time Iron deficiency anemia 71531991 Active 2024 Hugo Lowry PA-C [address], [place], [address] , [place] [facility] [place] [facility] [place] 5 14:28:04 Angiodysplasi a of intestine 875839387 Active 2024 Hugo Lowry PA-C [address], [place], [address] , [place] [facility] [place] 5 14:30:05 Cirrhosis of liver 40674234 Active 2023 Hugo Lowry PA-C [address], [place], [address] , [place] [facility] [place] 06/25/202 4 15:00:02 Anemia 843611949 Active [address], [place] [address] [facility] [place] 4 15:02:34 Breath smells unpleasant 20282794 Active [address], [place] [address] , [facility] & [place] 4 23:02:52 Regurgitation of food 013474333 Active [address], [place] [address] , [facility] & [place] 4 23:02:52 Gastroesophag eal reflux disease 638257960 Active [address], [place] [address] , [facility] & [place] 4 23:02:52 Pain of multiple joints 52195168 Active [address] [place] [address] [facility] & [place] 4 14:02:49 Problem Notes None recorded. Procedures Surgical History Date Name Laterality Status Provider Name and Address Organization Details Recorded Time 07/29/19 25 Venipuncture Gastro completed Rasheeda Lozada [facility] & [place] 07/29/2024 12:08:29 04/06/20 24 Capsule Endoscopy Application active Irenamauri Shaw [facility] & [place] 04/06/2024 09:24:33 Imaging Results None recorded. Procedure Notes None recorded. Medical Equipment None Reported. Allergies No known drug allergies Medications Name Sig Start Date Stop Date Status Note LastModified by Organization Details LastModified Time blood pressu solution kit active Not Available Not Available Not Available amantadine HCl 100 mg tablet active Not Available Not Available Not Available quetiapine 25 mg tablet active Not Available Not Available Not Available fluoxetine 40 mg capsule active Not Available Not Available Not Available amoxicillin 500 mg capsule active Not Available Not Available Not Available methocarbam ol 500 mg tablet active Not Available Not Available Not Available buspirone 5 mg tablet active Not Available Not Available No t Available lamotrigine 150 mg tablet active Not Available Not Available Not Available metformin 500 mg tablet active Not Available Not Available Not Available venlafaxine ER 37.5 mg capsule,ext ended release 24 hr 12/01 completed Not Available Not Available Not Available venlafaxine ER 75 mg capsule,ext ended release 24 hr 12/01 completed Not Available Not Available Not Available trazodone 50 mg tablet active Not Available Not Available Not Available fluconazole 150 mg tablet active Not Available Not Available Not Available glipizide ER 5 mg tablet, extended release 24 hr 02/08 completed Not Available Not Available Not Available amlodipine 5 mg tablet active Not Available Not Available Not Available omeprazole 40 mg capsule,del ayed release TAKE 1 CAPSULE BY MOUTH TWICE DAILY 2024 active Not Available Not Available Not Avai lable bisoprolol fumarate 5 mg tablet active Not Available Not Available No t Available propranolol 10 mg tablet active Not Available Not Available Not Available trazodone 100 mg tablet active Not Available Not Available Not Available pantoprazol e 40 mg tablet,yovany yed release 02/08 completed Not Available Not Available Not Available esomeprazol e magnesium 40 mg capsule,del ayed release Take 1 capsule twice a day by oral route for 90 days. active Not Available Not Available No t Available buspirone 10 mg tablet 12/01 completed Not Available Not Available Not Available hydroxyzine HCl 25 mg tablet active Not Available Not Available Not Available lisinopril 40 mg tablet active Not Available Not Available Not Available fluoxetine 20 mg capsule active Not Available Not Available Not Available lamotrigine 100 mg tablet active Not Available Not Available Not Available buspirone 15 mg tablet active Not Available Not Available Not Available bupropion HCl SR 200 mg tablet,12 hr sustained-r elease active Not Available Not Available Not Available aripiprazol e 5 mg tablet Take 1 tablet every day by oral route. active Not Available Not Available No t Available bupropion HCl XL 300 mg 24 hr tablet, extended release 12/01 completed Not Available Not Available Not Available bupropion HCl XL 150 mg 24 hr tablet, extended release 12/01 completed Not Available Not Available Not Available BD Ultra-Fine Mini Pen Needle 31 gauge x 3/16 active Not Available Not Available Not Available Lantus Solostar U-100 Insulin 100 unit/mL (3 mL) subcutaneou s pen active Not Available Not Available Not Available Gavilyte-C 240 gram-22.72 gram-6.72 gram-5.84 gram oral solution Take 4000 mL by oral route for 1 day. active Not Available Not Available No t Available Soliqua 100/33 100 unit-33 mcg/mL subcutaneou s insulin pen active Not Available Not Available Not Available Mounjaro 7.5 mg/0.5 mL subcutaneou s pen injector INJECT 1 SYRINGE SUBCUTANE OUSLY ONCE A WEEK active Not Available Not Available No t Available Mounjaro 5 mg/0.5 mL subcutaneou s pen injector INJECT 5MG SUBCUTANE OUSLY ONCE A WEEK 02/08 completed Not Available Not Available Not Available Mounjaro 10 mg/0.5 mL subcutaneou s pen injector active Not Available Not Available Not Available Mounjaro 2.5 mg/0.5 mL subcutaneou s pen injector 12/01 completed Not Available Not Available Not Available Dexcom G7 Sensor device active Not Available Not Available Not Available Vitals Date Recorded Body height Body mass index (BMI) Body weight Heart rate Heart rate Oxygen saturation Oxygen saturation in Arterial blood by Pulse oximetry Body temperature Systolic blood pressure Diastolic blood pressure Provider Name and Address Organization Details Last Updated DateTime 5 172.72 cm 43.9 kg/m2 060608. 48 g 80 /min 73 /min 98 % 98 % 97.8 [degF] 128 mm[Hg] 70 mm[Hg] [facility] [place] [facility] [place] 5 11:14:45 Date Recorded Body height Body mass index (BMI) Body weight Body temperature Heart rate Heart rate Oxygen saturation Oxygen saturation in Arterial blood by Pulse oximetry Systolic blood pressure Diastolic blood pressure Provider Name and Address Organization Details Last Updated DateTime 4 172.72 cm 44.6 kg/m2 501010 g 98.2 [degF] 92 /min 91 /min 97 % 97 % 141 mm[Hg] 75 mm[Hg] Rasheeda Lozada [facility] & [place] 4 14:14:46 Date Recorded Body height Body mass index (BMI) Body weight Body temperature Oxygen saturation Oxygen saturation in Arterial blood by Pulse oximetry Heart rate Heart rate Systolic blood pressure Diastolic blood pressure Provider Name and Address Organization Details Last Updated DateTime 4 172.72 cm 45.1 kg/m2 728961. 42 g 98.1 [degF] 98 % 98 % 72 /min 74 /min 163 mm[Hg] 80 mm[Hg] Deepit Keenan [facility] & [place] 4 13:27:50 Date Recorded Body height Body mass index (BMI) Body weight Body temperature Oxygen saturation Oxygen saturation in Arterial blood by Pulse oximetry Heart rate Heart rate Systolic blood pressure Diastolic blood pressure Provider Name and Address Organization Details Last Updated DateTime 172.72 cm 43.4 kg/m2 811000. 26 g 98.1 [degF] 98 % 98 % 74 /min 71 /min 169 mm[Hg] 86 mm[Hg] Deepti Keenan [facility] & [place] 4 11:23:45 Social History Question Answer Notes LastModified by [employer] ion Details LastModified Time Tobacco Smoking Status Never Smoker Deepti Keenan [facility] & [place] 03/31/2024 11:25:54 What Is Your Level Of Caffeine Consumption? Heavy [email or web address] Information not available 03/31/2024 Which Illicit Or Recreational Drugs Have You Used? Marijuana [email or web address] Information not available 03/31/2024 Have You Used IV Drugs? No [email or web address] Information not available 03/31/2024 Sex: Female Functional Status Question Answer Note LastModified by Organizat ion Details LastModified Time Do you use any illicit or recreational drugs? Yes [email or web address] Information not available 03/31/2024 Do you or have you ever used any other forms of tobacco or nicotine? No [email or web address] Information not available 03/31/2024 What is your level of alcohol consumption? None [email or web address] Information not available 03/31/2024 Mental Status None recorded. Family History Nothing Reported. 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 No medical history recorded. Gynecological HistoryNo gynecological history recorded. Obstetrics History GPAL:G 0 P 0 0 0 0 Immunizations Vaccine Type Date Status Note Provider Nam e and Address Organization Details Recorded Time Hep B, adult 02/09/2024 completed Jamilyn Will is null, [place] [facility] [place] 02/09/2024 14:22:25 Hep B, adult 03/31/2024 completed Jamilyn Will [place] null, [place] [facility] [place] 03/31/2024 12:34:29 Hep B, adult 07/29/2024 completed Hugo Lowry PA-C [address] [place], [address], [place] [facility] [place] 07/29/2024 14:05:00 Past Encounters Encounter ID Performer Location Encounter Start Date Encounter Closed Date Diagnosis/Indication Diagnosis SNOMED-CT Code Diagnosis ICD10 Code Diagnosis Note [id number] Trena Millard MD [facility] [address] [address] 12/02/2023 10:17:47 12/02/2023 11:16:42 Breath smells unpleasant 69515717 R19.6 Regurgitation of food 10 8558202 R19.8 Gastroesop hageal reflux disease 462074750 K21.9 Screening for malignant neoplasm of colon 723451246 Z12.11 [id number] Hugo Lowry PA-C [facility] [address] [address] 12/29/2023 14:00:33 12/29/2023 15:18:34 Cirrhosis of liver 71377466 K74.60 Anemia 432706564 D64.9 Breath sme lls unpleasant 40440357 R19.6 Regurgitation of food 10 9570456 R19.8 Gastroesop hageal reflux disease 924083440 K21.9 Screening for malignant neoplasm of colon 832155966 Z12.11 [id number] Hugo Lowry PA-C [facility] [address] [address] 02/09/2024 13:02:52 02/09/2024 14:21:45 Cirrhosis of liver 51930118 K74.60 Anemia 728447634 D64.9 Breath sme lls unpleasant 13210657 R19.6 Regurgitation of food 10 9076037 R19.8 Gastroesop hageal reflux disease 071548066 K21.9 Screening for malignant neoplasm of colon 221810471 Z12.11 Hepatitis B non-immune 857640437 Z78.9 Administra tion of viral vaccine 43523361 Z23 Pain of mu ltiple joints 06348373 M25.50 [id number] Hugo Lowry PA-C [facility] [place] [address] 03/31/2024 11:04:11 03/31/2024 12:24:54 Cirrhosis of liver 13248096 K74.60 Anemia 539668703 D64.9 Regurgitation of food 10 8686673 R19.8 Gastroesop hageal reflux disease 971112504 K21.9 Screening for malignant neoplasm of colon 658037646 Z12.11 Hepatitis B non-immune 848230731 Z78.9 Administra tion of viral vaccine 24515698 Z23 Pain of mu ltiple joints 53221912 M25.50 [id number] Hugo Lowry PA-C [facility] [address] [address] 07/29/2024 10:59:45 07/29/2024 12:04:26 Cirrhosis of liver 02260187 K74.60 Gastroesop hageal reflux disease 323986878 K21.9 Administra tion of viral vaccine 69364860 Z23 Iron defic iency anemia 24501021 D50.9 History of polyp of colon 713150756 Z86.0100 Angiodyspl stefania of intestine 438809409 K55.20 Health Concerns Section Related Observation LastModified by Organization Detai ls LastModified Time None Recorded Concern Status LastModified by Organization Details LastModified Time None Recorded Advance Directives Directive None Recorded Payers Insurance Date Sequence Insurance Name Policy Number Policy Bella Covered Member ID Bella Member ID Guarantor Name 08/01/2024 1 [place] [facility] [place] [id number] Bethany Toro [id number] Bethany Toro Notes Date Note Type Note Provider Name and Address Organization Details Recorded Time 12/29/2023 text/html PREVIOUS ( 4) Dr. Millard: Mrs. Toro is a 48 yo lady with PMH of uncontrolled DM (on mounjaro, metformin, glipizide, lantus), depression, HTN, who presented for evaluation of GERD symptoms. She reports that she has been having really bad belching episodes that taste like sulphur, along with signfiicant regurgitation of acid and sometimes food. She does notice that she has halitosis. No trouble swallowing No abdominal pain. Sometimes if the acid gets bad she gets nauseous. no hematemesis, melena, hematochezia. She also feels like she is full all the time, which has been worse since starting mounjaro. She has tried over the counter omeprazole and then pantoprazole 40 mg twice a day. She is not taking it 30 mins before a meal, we worked on education on how to take this today. Her symptoms have been bad for a few years, but signfincalty worse over the last 3 months since she started thhe mounjaro. No other concerning symtpoms. She has never had an EGD or a colonoscopy . No FH of any kind of GI cancer. CURRENT (12/29/23) Leonardo Lowry: Ms. Toro returns to the office today for procedure follow-up. She underwent EGD and colonoscopy by Dr. Millard on 12/11/23 with incidental finding of grade 2 esophageal varices, esophagitis, and gastroduodenitis. 2 adenomatous polyps were resected on colonoscopy. She underwent CT imaging after the procedure that showed a cirrhotic appearing liver. She returns to the office today for lab workup in regards to potential etiologies of cirrhosis. Her reflux symptoms have improved following switch to Omeprazole. Hugo Lowry PA-C [address], [place], [address], [facility] - [place] - [place] & [place] 12/30/2023 23:18:08 02/09/2024 text/html CURRENT (02/09/24) : Ms. Toro returns to the office today for follow-up regarding iron deficiency anemia and recently diagnosed compensated cirrhosis following incidental finding of esophageal varices on upper endosocpy. Recent comprehensive lab workup of potential caused of chronic liver disease showed complex heterozygous hemochromatosis (1 copy [id number], 1 copy [id number]). She remains iron deficiency and with ferritin low at 10 on labs here in the office in December. Autoimmune and viral hepatitis labs were unremarkable. A1ATD showed normal phenotype MM, with total A1AT mildly high. Ceruloplasmin was normal. ELF score was high at 11.09. She notes that her current weight is the highest it has ever been. She is prescribed Mounjaro 7.5 mg weekly injection, but notes minimal weight loss. She does feel that she eats less than she did before starting the injections. She states her PCP recently started an oral iron supplement. Hugo Lowry PA-C [address], [place], [address], [place] [facility] [place] [facility] [place] 02/09/2024 14:32:53 03/31/2024 text/html PREVIOUS (02/09/24 ): Ms. Toro returns to the office today for follow-up regarding iron deficiency anemia and recently diagnosed compensated cirrhosis following incidental finding of esophageal varices on upper endosocpy. Recent comprehensive lab workup of potential caused of chronic liver disease showed complex heterozygous hemochromatosis (1 copy San49Zma, 1 copy [id number]). She remains iron deficiency and with ferritin low at 10 on labs here in the office in December. Autoimmune and viral hepatitis labs were unremarkable. A1ATD showed normal phenotype MM, with total A1AT mildly high. Ceruloplasmin was normal. ELF score was high at 11.09. She notes that her current weight is the highest it has ever been. She is prescribed Mounjaro 7.5 mg weekly injection, but notes minimal weight loss. She does feel that she eats less than she did before starting the injections. She states her PCP recently started an oral iron supplement. CURRENT (03/31/24): Ms. Toro returns to the office today for follow-up regarding cirrhosis, hemochromatosis, and iron deficiency anemia. She completed a small bowel series last week in preparation for capsule endoscopy. That result was normal. She is taking Mounjaro 10 mg weekly injections, but states she continues to struggle to lose weight. Our records show she is down 11 lbs over the past month. She is experiencing occasional vomiting and excessive belching. She denies signs of GI blood loss. Additionally, she denies symptoms of hepatic decompensation at this time. Hugo Lowry PA-C [address], [place], [address], [facility] & [place] 03/31/2024 12:48:21 07/29/2024 text/html Ms. 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 She recently underwent capsule endoscopy that showed multiple bleeding and non-bleeding small bowel angioectasias. She was recommended to continue oral iron supplementation. She is feeling well currently. She denies fatigue, dyspnea on exertion, lower extremity swelling, or memory issues/confusion. She is due for the final dose of the hepatitis B vaccination today. Hugo Lowry PA-C [address], [place], [address], [place] [facility] & [place] 07/29/2024 14:32:01 OBGyn Episode No OBEpisode recorded.
[2024-12-19 15:00] VITALS: BP 116/68; PULSE 79; RESP 18; O2SAT 96; BMI 41.3
--- NOTE | 2024-12-19 15:05 | EXP.PAIN.SOA ---
[facility] Disclaimer: The information contained in this section may have been updated after the patient was seen, as this information can be updated by other users. 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 Generalized anxiety disorder Recurrent major depression resistant to treatment Social History Smoking Status: Never smoker second hand exposure: Yes alcohol intake: never substance use type: denies use and marijuana current occupational status: other Travel in the last 8 weeks?: None household members: spouse housing: house number of children: 0 current occupation: [employer] current occupational exposures/hazards: No caffeine: Yes PM Subjective & Objective Subjective Subjective:: Patient is a pleasant 49-year-old female who presents today for follow-up of bilateral occipital nerve block on 11/29/2024. She does rated her pain today a 6 out of 10. Patient states that she did have initially 75% improvement for 4 to 5 days however does feel like she is going back towards her baseline today. Patient does continue to have increased pain and pressure they are in her neck that does radiate into the base of her head with increased headaches. Patient does also have some numbness and tingling into her fingertips. Patient states the pain does interfere with her ability perform activities of daily living such as cooking and cleaning. Patient does states she just feels like all over she frequently has body aches and it does vary on a day-to-day basis of once flights. Patient states in the past she has been tried on diclofenac and meloxicam with minimal improvement. Patient does states that her liver specialist was the one that did not want her on those medications long-term. She does state that she has got a follow-up next month with them. Patient is interested in any help we may build provide. She is prescribed methocarbamol 500 mg 3 times a day and compounded cream from our office. She denies any side effects. Her Hood has been reviewed and is appropriate. Review of Systems: General: No recent weight changes, no fever, no sleep disturbances Respiratory: No cough, no shortness of air, no recurring pulmonary infections Cardiovascular/peripheral vascular: No chest pain, no palpitations, no edema, no shortness of breath Gastrointestinal: No new onset incontinence, normal bowel movements reported Genitourinary: No new onset incontinence Musculoskeletal: Neck pain, headaches, numbness tingling bilateral hands/fingers Psychiatric: [Normal mood/affect] Neurological: [Denies weakness in extremities], [denies balance issues] Pain at rest (0-10 scale): 6 Objective Objective:: Physical Exam: General: Alert and oriented x3, no acute distress, pleasant and cooperative Lungs: Respirations even and unlabored, symmetrical chest expansion Eyes: PERRL Musculoskeletal: Flexion and extension of cervical [spine] somewhat guarded secondary to pain, [antalgic gait noted] positive Spurling's test Neurological: Speech clear, no gross sensory deficit Has patient had previous pain injection?: Yes Percent improvement in pain since last injection: 75% Conservative treatment options previously tried: Home exercise plan Length of treatment: Longer than 12 weeks Meds Home Medications and Allergies Home Medications ?Medication ?Instructions ?Recorded ?Confirmed ?Type bupropion HCl 200 mg tablet,12 hr 200 mg PO DAILY 01/20/24 12/19/24 History sustained-release lamotrigine 150 mg tablet 150 mg PO DAILY 01/20/24 12/19/24 History omeprazole 40 mg capsule,delayed 40 mg PO DAILY 01/20/24 12/19/24 History release pen needle, diabetic 31 gauge x #1,200 ea 01/20/24 12/19/24 History 09/18 (BD Ultra-Fine Mini Pen Needle) propranolol 10 mg tablet 10 mg PO ONCE 01/20/24 12/19/24 History metformin 500 mg tablet 1,000 mg (2 x 500 mg) PO DAILY 04/06/24 12/19/24 Rx Diabetes #180 tabs ferrous sulfate 325 mg (65 mg 325 mg PO BID #180 tabs 05/23/24 12/19/24 Rx iron) tablet amlodipine 5 mg tablet 5 mg PO DAILY #90 tabs 05/25/24 12/19/24 Rx bisoprolol fumarate 5 mg tablet See Rx Instructions .Route 07/27/24 12/19/24 Rx .COMPLEX #90 tabs lisinopril 40 mg tablet 40 mg PO DAILY High blood pressure 07/27/24 12/19/24 Rx #90 tabs Lantus Solostar U-100 Insulin 100 See Rx Instructions .Route 08/18/24 12/19/24 Rx unit/mL (3 mL) subcutaneous pen .COMPLEX #15 mL (insulin glargine) baclofen 5 mg tablet 5 mg PO TID #42 tabs 08/18/24 12/19/24 Rx blood-glucose sensor (Dexcom G7 #3 ea 10/05/24 12/19/24 Rx Sensor device) tirzepatide 10 mg/0.5 mL See Rx Instructions .Route 11/25/24 12/19/24 Rx subcutaneous pen injector .COMPLEX #4 mL (Mounjaro) New Prescriptions to Start Prescriptions: Allergies Allergy/AdvReac Type Severity Reaction Status Date / Time No Known Allergies Allergy Verified 11/23/24 09:30 Assessment and Plan *Assessment and plan (1) Occipital neuralgia: Status: Acute Category: Medical Code(s): M54.81 - Occipital neuralgia (2) Chronic headaches: Status: Acute Category: Medical Code(s): R51.9 - Headache, unspecified; G89.29 - Other chronic pain (3) Neck pain: Status: Acute Category: Medical Code(s): M54.2 - Cervicalgia (4) Cervical radiculopathy: Status: Acute Category: Medical Code(s): M54.12 - Radiculopathy, cervical region Plan Patient is experiencing worsening pain in their neck with radiating tingling and burning sensations into their bilateral upper extremities. Patient did have limited range of motion of her cervical spine with a positive Spurling's test. I did discuss with the patient that I do believe they would benefit from a cervical epidural steroid injection. Risk and benefits were discussed with patient and they would like to proceed forward with this plan of care. Patient has tried and failed conservative therapy including oral medications, heat and ice, topicals, at home stretching exercise for longer than 12 weeks that was physician guided. Patient has had chronic neck pain for longer than 6 months. Patient has not had any cervical epidurals in the past to compare to. Patient will be scheduled for a JEFFREY C6-C7 under fluoroscopy. Patient denies any blood thinners. I did also discuss with the patient that I would highly recommend she have her primary care do updated labs including CBC, CMP, thyroid panel, iron panel and other yearly labs to rule out a cause for her chronic body aches in multiple areas. We did also discuss the possibility that it may be fibromyalgia which is a diagnosis by exclusion. We will continue to monitor this. We did discuss the possibility of trying Celebrex or even pregabalin in the future. Patient has been instructed to contact the clinic with any concerns before the next appointment. Dr. Tabor has reviewed this note and agrees with this plan of care. This note was dictated using voice recognition software and make contain errors or omissions. All injections are used with Lidocaine, Bupivacaine and dexamethasone unless otherwise stated as a diagnostic in which it has no steroid. Occasionally urine drug screen is needed to verify patient's compliance with our office pain contract. This is ordered based off specific treatments related to chronic pain with the potential to abuse certain medications.
== END 2024-12-19 23:59 | disposition home or self-care (01) ==
LOC: SC.PAIN 14:16
PROVIDERS: PCP Internal Medicine; Visit Provider Nurse Practitioner Family
DX: M54.81 Occipital neuralgia (principal); G89.29 Other chronic pain; M54.12 Radiculopathy, cervical region; Z79.899 Other long term (current) drug therapy; Z79.1 Long term (current) use of non-steroidal anti-inflammatories (NSAID)
CPT/HCPCS: 99212; G0463

== ENCOUNTER 2025-01-10 08:00 | Day surgery (SDC) | payer BC, SELFPAY ==
[2025-01-10 08:12] VITALS: BP 156/85; PULSE 88; RESP 18; O2SAT 99; BMI 41.3
[2025-01-10] MEDS: DEXAMETHASONE 10MG/ML 1ML VIAL 10 MG (08:45)
[2025-01-10 08:46] VITALS: BP 156/85; PULSE 82; RESP 18; O2SAT 97
[2025-01-10 08:49] VITALS: BP 156/85; PULSE 82; RESP 18; O2SAT 97
[2025-01-10] MEDS: IOPAMIDOL-200 (41%);10ML VIAL 3 ML IV (08:52)
--- NOTE | 2025-01-10 08:53 | P.PCN_ITS ---
Procedure Date: 01/10/25 Time: 08:30 Anesthesiologist:: Leopoldo Arenas CRNA Complications:: None Pre-procedure Diagnosis:: Degenerative disc cervical spine multilevels. Cervical radiculopathy. Cervical disc bulge C6-7. Post-procedure Diagnosis:: Same Indications for Procedure:: Patient is a very pleasant 49-year-old female comes our clinic today for cervical epidural steroid injection. Patient describes cervical neck pain as constant, dull, aching. Also bilateral shoulder radicular symptoms at times. She reports having difficulty with cervical flexion, extension, left and right rotation. She rates her pain 7/10. Procedure Details:: Procedure:Cervical epidural steroid injection Informed consent was obtained and the risks and benefits of the procedure were explained to the patient. The patient was taken to the procedure room and noninvasive monitors placed, including noninvasive blood pressure cuff and pulse oximeter. The neck was prepped using Chloraprep as a cleansing solution. The C6- C7 interspace was viewed using fluroscopy. The skin and subcutaneous tissues were anesthetized using lidocaine 1.5% and a 25-gauge needle. After this an 18- gauge Touhy epidural needle was placed into the C6-C7 interspace under fluroscop y guidance and advanced using loss of resistance to air until the epidural space was encountered. After confirmation of needle placement in the epidural space using contrast dye, dexamethasone 10 mg ( 1 ML) was incrementally injected into the cervical epidural space.~ The patient tolerated the procedure well with no complications. The patient was observed in the Pain Clinic and then discharged home neurologically intact. Plan and Disposition:: Patient was discharged without incident.
[2025-01-10 08:55] VITALS: BP 156/89; PULSE 83; RESP 18; O2SAT 98
== END 2025-01-10 08:55 | disposition home or self-care (01) ==
PROVIDERS: PCP Internal Medicine; Visit Provider Nurse Anesthetist, Certified Registered
DX: M50.123 Cervical disc disorder at C6-C7 level with radiculopathy (principal); M50.30 Other cervical disc degeneration, unspecified cervical region; M54.81 Occipital neuralgia; F41.1 Generalized anxiety disorder; F33.9 Major depressive disorder, recurrent, unspecified; Z79.85 Long-term (current) use of injectable non-insulin antidiabetic drugs; Z79.4 Long term (current) use of insulin; Z79.899 Other long term (current) drug therapy; Z79.84 Long term (current) use of oral hypoglycemic drugs
CPT/HCPCS: 62321; J1100; Q9966

== ENCOUNTER 2025-01-18 16:28 | Outpatient (CLI) | payer BC, SELFPAY ==
[2025-01-18 16:15] LABS: Hematocrit 40.3 % (37.0-47.0); Hemoglobin 13.6 g/dL (12.2-16.2); Immature Granulocytes % 0.3 %; Mean Corpuscular HGB Conc 33.7 g/dL (31.8-35.4); Mean Corpuscular Hemoglobin 32.6 pg (27.0-31.2); Mean Corpuscular Volume 96.6 fl (81-99); Nucleated Red Blood Cells % 0 %; Platelet Count 181 K/mm3 (142-424); Red Blood Count 4.17 M/mm3 (4.20-5.40); Red Cell Distribution Width-SD 47.1 fL; White Blood Count 8.0 K/mm3 (4.8-10.8)
[2025-01-18 16:58] LABS: Albumin Level 3.8 g/dl (3.5-5.0); Chloride 106 mmol/L (98-107); Potassium 3.7 mmoL/L (3.5-5.1); Sodium 139 mmol/L (136-145)
[2025-01-18 17:01] LABS: Alanine Aminotransferase 16 U/L (12-78); Albumin/Globulin Ratio 1.4 (1.1-1.8); Alkaline Phosphatase 100 U/L (38-126); Anion Gap 11.7 mEq/L (5-15); Aspartate Amino Transferase 28 U/L (14-36); Bilirubin,Total 0.6 mg/dl (0.2-1.3); Blood Urea Nitrogen 8 mg/dl (7-17); Carbon Dioxide 25 mmol/L (22.0-30.0); Cholesterol 185 mg/dl (140-200); Creatinine,Serum 0.60 mg/dl (0.52-1.04); Estimated Glomerular Filt Rate 106 ml/min (>60); GFR (African American) 129 ML/MIN (>60); Globulin 2.7 g/dL (1.3-3.2); Total Protein,Serum 6.5 g/dl (6.3-8.2); Triglycerides 217 mg/dl (30-150)
[2025-01-18 17:02] LABS: Calcium 9.2 mg/dl (8.4-10.2); Glucose 85 mg/dl (74-100); HDL Cholesterol 48 mg/dl (40-60)
[2025-01-18 19:03] LABS: Hemoglobin A1C 5.7 % (4.0-6.0)
[2025-01-19 05:15] LABS: FSH 21.9 mIU/mL (.)
== END 2025-01-18 23:59 | disposition home or self-care (01) ==
LOC: LAB.DROPOF 16:28
PROVIDERS: PCP Internal Medicine; Visit Provider Internal Medicine
DX: N95.1 Menopausal and female climacteric states (principal); E11.42 Type 2 diabetes mellitus with diabetic polyneuropathy; E78.5 Hyperlipidemia, unspecified; K74.60 Unspecified cirrhosis of liver; I10 Essential (primary) hypertension; D64.9 Anemia, unspecified
CPT/HCPCS: 80053; 80061; 82670; 83001; 83036; 85025

== ENCOUNTER 2025-02-06 13:52 | Outpatient (POV) | payer BC, SELFPAY ==
[2025-02-06 14:12] VITALS: BP 138/70; PULSE 77; RESP 14; O2SAT 97; BMI 39.9
--- NOTE | 2025-02-06 14:31 | EXP.PAIN.SOA ---
[facility] Disclaimer: The information contained in this section may have been updated after the patient was seen, as this information can be updated by other users. 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 Generalized anxiety disorder Recurrent major depression resistant to treatment Social History Smoking Status: Never smoker second hand exposure: Yes alcohol intake: never substance use type: denies use and marijuana current occupational status: other Travel in the last 8 weeks?: None household members: spouse housing: house number of children: 0 current occupation: [employer] current occupational exposures/hazards: No caffeine: Yes PM Subjective & Objective Subjective Subjective:: Patient is a pleasant 41-year-old female who presents today for follow-up of her cervical epidural steroid injection C6 or C7 on 01/10/2025. She does right at least 85% improvement that did take a couple days for it to kick in however still feels like it is working really well. Patient rates her neck pain a 0 out of 10 currently. She does state however she is still been having random aches and pains that really do very and locations from her low back to her hands to other areas. Patient is asking whether or not if there are any additional options we can try due to this chronic pain. Patient is currently managed with methocarbamol 500 mg 3 times a day and compounded cream. She denies any side effects. Her Hood has been reviewed and is appropriate. Review of Systems: General: No recent weight changes, no fever, no sleep disturbances Respiratory: No cough, no shortness of air, no recurring pulmonary infections Cardiovascular/peripheral vascular: No chest pain, no palpitations, no edema, no shortness of breath Gastrointestinal: No new onset incontinence, normal bowel movements reported Genitourinary: No new onset incontinence Musculoskeletal: Low back pain generalized joint pain Psychiatric: [Normal mood/affect] Neurological: [Denies weakness in extremities], [denies balance issues] Pain at rest (0-10 scale): 0 Objective Objective:: Physical Exam: General: Alert and oriented x3, no acute distress, pleasant and cooperative Lungs: Respirations even and unlabored, symmetrical chest expansion Eyes: PERRL Musculoskeletal: Flexion and extension of cervical [spine] within normal limits Neurological: Speech clear, no gross sensory deficit Has patient had previous pain injection?: Yes Percent improvement in pain since last injection: 85% Conservative treatment options previously tried: Home exercise plan Length of treatment: Longer than 12 weeks Meds Home Medications and Allergies Home Medications ?Medication ?Instructions ?Recorded ?Confirmed ?Type bupropion HCl 200 mg tablet,12 hr 200 mg PO DAILY 01/20/24 02/06/25 History sustained-release lamotrigine 150 mg tablet 150 mg PO DAILY 01/20/24 02/06/25 History omeprazole 40 mg capsule,delayed 40 mg PO DAILY 01/20/24 02/06/25 History release propranolol 10 mg tablet 10 mg PO ONCE 01/20/24 02/06/25 History ferrous sulfate 325 mg (65 mg 325 mg PO BID #180 tabs 05/23/24 02/06/25 Rx iron) tablet Lantus Solostar U-100 Insulin 100 See Rx Instructions .Route 08/18/24 02/06/25 Rx unit/mL (3 mL) subcutaneous pen .COMPLEX #15 mL (insulin glargine) baclofen 5 mg tablet 5 mg PO TID #42 tabs 08/18/24 02/06/25 Rx tirzepatide 10 mg/0.5 mL See Rx Instructions .Route 11/25/24 02/06/25 Rx subcutaneous pen injector .COMPLEX #4 mL (Mounjaro) metformin 500 mg tablet 1,000 mg (2 x 500 mg) PO DAILY 01/11/25 02/06/25 Rx Diabetes #180 tabs pen needle, diabetic 31 gauge x #100 ea 01/11/25 02/06/25 Rx 3/16 (Unifine Pentips) rosuvastatin 5 mg tablet 5 mg PO DAILY For cholesterol #90 01/19/25 02/06/25 Rx tabs amlodipine 5 mg tablet 5 mg PO DAILY #90 tabs 02/01/25 02/06/25 Rx bisoprolol fumarate 5 mg tablet See Rx Instructions .Route 02/01/25 02/06/25 Rx .COMPLEX #90 tabs blood-glucose sensor (Dexcom G7 #3 ea 02/01/25 02/06/25 Rx Sensor device) lisinopril 40 mg tablet 40 mg PO DAILY High blood pressure 02/01/25 02/06/25 Rx #90 tabs New Prescriptions to Start Prescriptions: Allergies Allergy/AdvReac Type Severity Reaction Status Date / Time No Known Allergies Allergy Verified 01/18/25 10:16 Assessment and Plan *Assessment and plan (1) Cervical radiculopathy: Status: Acute Category: Medical Code(s): M54.12 - Radiculopathy, cervical region (2) Chronic headaches: Status: Acute Category: Medical Code(s): R51.9 - Headache, unspecified; G89.29 - Other chronic pain (3) Lumbar radiculopathy: Status: Acute Category: Medical Code(s): M54.16 - Radiculopathy, lumbar region Plan I did discuss with the patient that it may be beneficial to try pregabalin 50 mg twice a day. We did discuss in future that her symptoms may be consistent with fibromyalgia and that is a diagnosis by exclusion. Patient does have random pain flareups in multiple locations. We will send in a 2-week dose of the pregabalin and see how she does with this medication. Patient will return to clinic in 2 weeks for reevaluation of symptoms and plan of care. I will also refill her methocarbamol. Patient has been instructed to contact the clinic with any concerns before the next appointment. Dr. Tabor has reviewed this note and agrees with this plan of care. This note was dictated using voice recognition software and make contain errors or omissions. All injections are used with Lidocaine, Bupivacaine and dexamethasone. Occasionally urine drug screen is needed to verify patient's compliance with our office pain contract. This is ordered based off specific treatments related to chronic pain with the potential to abuse certain medications.
== END 2025-02-06 23:59 | disposition home or self-care (01) ==
PROVIDERS: PCP Internal Medicine; Visit Provider Nurse Practitioner Family
DX: M54.12 Radiculopathy, cervical region (principal); M54.16 Radiculopathy, lumbar region; G43.909 Migraine, unspecified, not intractable, without status migrainosus; G89.4 Chronic pain syndrome; Z79.899 Other long term (current) drug therapy
CPT/HCPCS: 99212; G0463

== ENCOUNTER 2025-02-09 08:01 | Outpatient (CLI) | payer BC, SELFPAY ==
--- NOTE | 2025-02-09 08:02 | US_ITS ---
FINAL REPORT CLINICAL HISTORY: UNSPECIFIED CIRRHOSIS OF LIVER FINDINGS: Sonographic images of the right upper quadrant were obtained. The pancreas is obscured. There is fatty infiltration of the liver. The gallbladder appears normal without evidence of gallstones.There is no evidence of biliary ductal dilatation.The common duct measures 4mm. Limited images of the right kidney are unremarkable. IMPRESSION: Fatty liver. Reviewed, Interpreted and Dictated by Ernesto Harrell MD Transcribed by Malu Joshi Authenticated and [facility]
[2025-02-09 09:13] LABS: INR 1.02 (0.9-1.1); Prothrombin Time 11.3 seconds (10.1-12.5)
[2025-02-09 09:32] LABS: Iron 70 ug/dL (37-170)
[2025-02-09 09:42] LABS: Total Iron Binding Capacity 299 ug/dL (265-497)
[2025-02-09 10:09] LABS: Ferritin 26.5 ng/ml (6.24-137)
== END 2025-02-09 23:59 | disposition home or self-care (01) ==
PROVIDERS: PCP Internal Medicine; Visit Provider Physician Assistant
DX: K76.0 Fatty (change of) liver, not elsewhere classified (principal); K74.60 Unspecified cirrhosis of liver
CPT/HCPCS: 76705; 82105; 82728; 83540; 83550; 85610

== ENCOUNTER 2025-02-22 13:44 | Outpatient (POV) | payer BC, SELFPAY ==
--- NOTE | 2025-02-22 14:13 | EXP.PAIN.SOA ---
[facility] Disclaimer: The information contained in this section may have been updated after the patient was seen, as this information can be updated by other users. 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 Generalized anxiety disorder Recurrent major depression resistant to treatment Social History Smoking Status: Never smoker second hand exposure: Yes alcohol intake: never substance use type: denies use and marijuana current occupational status: other Travel in the last 8 weeks?: None household members: spouse housing: house number of children: 0 current occupation: [employer] current occupational exposures/hazards: No caffeine: Yes PM Subjective & Objective Subjective Subjective:: Patient is a pleasant 49-year-old female who presents today for 2-week follow-up. Today she rates her pain a 7 out of 10. Patient does state that she did feel like the pregabalin we sent in at her last visit of 50 mg twice daily did provide improvement in that she noticed some relief of the numbness and tingling pain in her hands. Patient denies any side effects. Patient did state that her methocarbamol 500 mg 3 times a day does cause a little bit of drowsiness. She is also prescribed compounded cream. She does make mention today that her pain is related to her low back. Her Hood has been reviewed and is appropriate. Patient did have her last cervical epidural on January 10 with 85% relief. Injection history: JEFFREY C6-C7 01/10/2025 85% improvement occipital nerve block 11/29/2024 75% improvement LESI L5-S1 09/13/2024 75% improvement bilateral SI injections 07/05/2024 75 to 80% improvement lumbar medial branch block bilaterally L4-L5 and L5-S1 05/06/2024 minimal improvement Review of Systems: General: No recent weight changes, no fever, no sleep disturbances Respiratory: No cough, no shortness of air, no recurring pulmonary infections Cardiovascular/peripheral vascular: No chest pain, no palpitations, no edema, no shortness of breath Gastrointestinal: No new onset incontinence, normal bowel movements reported Genitourinary: No new onset incontinence Musculoskeletal: Low back pain Psychiatric: [Normal mood/affect] Neurological: [Denies weakness in extremities], [denies balance issues] Pain at rest (0-10 scale): 7 Objective Objective:: Physical Exam: General: Alert and oriented x3, no acute distress, pleasant and cooperative Lungs: Respirations even and unlabored, symmetrical chest expansion Eyes: PERRL Musculoskeletal: Flexion and extension of lumbar [spine] somewhat guarded secondary to pain, [antalgic gait noted] Neurological: Speech clear, no gross sensory deficit Has patient had previous pain injection?: No Conservative treatment options previously tried: Home exercise plan Length of treatment: Longer than 12 weeks Meds Home Medications and Allergies Home Medications ?Medication ?Instructions ?Recorded ?Confirmed ?Type bupropion HCl 200 mg tablet,12 hr 200 mg PO DAILY 01/20/24 02/06/25 History sustained-release lamotrigine 150 mg tablet 150 mg PO DAILY 01/20/24 02/06/25 History omeprazole 40 mg capsule,delayed 40 mg PO DAILY 01/20/24 02/06/25 History release propranolol 10 mg tablet 10 mg PO ONCE 01/20/24 02/06/25 History ferrous sulfate 325 mg (65 mg 325 mg PO BID #180 tabs 05/23/24 02/06/25 Rx iron) tablet Lantus Solostar U-100 Insulin 100 See Rx Instructions .Route 08/18/24 02/06/25 Rx unit/mL (3 mL) subcutaneous pen .COMPLEX #15 mL (insulin glargine) baclofen 5 mg tablet 5 mg PO TID #42 tabs 08/18/24 02/06/25 Rx metformin 500 mg tablet 1,000 mg (2 x 500 mg) PO DAILY 01/11/25 02/06/25 Rx Diabetes #180 tabs pen needle, diabetic 31 gauge x #100 ea 01/11/25 02/06/25 Rx 3/16 (Unifine Pentips) rosuvastatin 5 mg tablet 5 mg PO DAILY For cholesterol #90 01/19/25 02/06/25 Rx tabs amlodipine 5 mg tablet 5 mg PO DAILY #90 tabs 02/01/25 02/06/25 Rx bisoprolol fumarate 5 mg tablet See Rx Instructions .Route 02/01/25 02/06/25 Rx .COMPLEX #90 tabs blood-glucose sensor (Dexcom G7 #3 ea 02/01/25 02/06/25 Rx Sensor device) lisinopril 40 mg tablet 40 mg PO DAILY High blood pressure 02/01/25 02/06/25 Rx #90 tabs methocarbamol 500 mg tablet 500 mg PO BID #60 tabs 02/06/25 Rx pregabalin 50 mg capsule 50 mg PO BID #28 caps 02/06/25 Rx tirzepatide 10 mg/0.5 mL See Rx Instructions .Route 02/22/25 Rx subcutaneous pen injector .COMPLEX #4 mL (Mounjaro) New Prescriptions to Start Prescriptions: Allergies Allergy/AdvReac Type Severity Reaction Status Date / Time No Known Allergies Allergy Verified 01/18/25 10:16 Assessment and Plan *Assessment and plan (1) Lumbar radiculopathy: Status: Acute Category: Medical Code(s): M54.16 - Radiculopathy, lumbar region (2) Degenerative disc disease, lumbar: Status: Chronic Category: Medical Code(s): M51.369 - Other intervertebral disc degeneration, lumbar region without mention of lumbar back pain or lower extremity pain Plan I did discuss with patient that I will increase her pregabalin to 75 mg twice daily and provide a 1 month supply of this medication. Patient was counseled that she can just use the methocarbamol at night since it does cause increased drowsiness. She agrees with this plan of care. Patient was also counseled that we can always see about additional low back injections. We will follow-up with this in future. Patient will return to clinic in 1 month. Patient has been instructed to contact the clinic with any concerns before the next appointment. Dr. Tabor has reviewed this note and agrees with this plan of care. This note was dictated using voice recognition software and make contain errors or omissions. All injections are used with Lidocaine, Bupivacaine and dexamethasone. Occasionally urine drug screen is needed to verify patient's compliance with our office pain contract. This is ordered based off specific treatments related to chronic pain with the potential to abuse certain medications.
[2025-02-22 15:09] VITALS: BP 148/99; PULSE 91; RESP 18; O2SAT 97; BMI 358.2
== END 2025-02-22 23:59 | disposition home or self-care (01) ==
PROVIDERS: PCP Internal Medicine; Visit Provider Nurse Practitioner Family
DX: M51.26 Other intervertebral disc displacement, lumbar region (principal); Z79.899 Other long term (current) drug therapy
CPT/HCPCS: 99212; G0463

== ENCOUNTER 2025-04-29 23:33 | Observation (INO) | payer BC, SELFPAY ==
--- NOTE | 2025-04-29 23:35 | HMH.EDGENADL ---
Discharge Plan Disposition Patient Disposition: Admitted Clinical Impressions Clinical Impression: Cirrhosis due to hemochromatosis, LORENZO (acute kidney injury), Hypomagnesemia DM2 (diabetes mellitus, type 2) Qualifiers: Diabetes mellitus fpc insulin use: with fpc use Discharge ED Provider: Kit Peralta General Adult HPI General Chief complaint: Hyper/Hypoglycemia Stated complaint: High Blood Sugar; Blacked out 3 times Time Seen by Provider: 04/29/25 23:35 History of Present Illness HPI narrative: 50-year-old female with cirrhosis due to hemochromatosis, type 2 diabetes on Lantus, presents for lightheadedness and an episode of fainting. She started taking spironolactone and Lasix last week due to increasing lower extremity edema. Over the last couple of days she has felt lightheaded. Today she had a couple of episodes of blacking out where she was not responsive for a few seconds according to her friend. Shortly after she passed out and fell to the ground. She denies any pain from the fall. She is not on blood thinners. She denies any headache chest pain abdominal pain shortness of breath or any other symptoms at this time. No recent fever or illness. Related Data Home Medications ?Medication ?Instructions ?Recorded ?Confirmed bupropion HCl 200 mg tablet,12 hr 200 mg PO DAILY 01/20/24 04/20/25 sustained-release lamotrigine 150 mg tablet 150 mg PO DAILY 01/20/24 04/20/25 omeprazole 40 mg capsule,delayed 40 mg PO DAILY 01/20/24 04/20/25 release propranolol 10 mg tablet 10 mg PO ONCE 01/20/24 04/20/25 Previous Rx's ?Medication ?Instructions ?Recorded ferrous sulfate 325 mg (65 mg 325 mg PO BID #180 tabs 05/23/24 iron) tablet baclofen 5 mg tablet 5 mg PO TID #42 tabs 08/18/24 metformin 500 mg tablet 1,000 mg (2 x 500 mg) PO DAILY 01/11/25 Diabetes #180 tabs pen needle, diabetic 31 gauge x #100 ea 01/11/2509/18 (Unifine Pentips) rosuvastatin 5 mg tablet 5 mg PO DAILY For cholesterol #90 01/19/25 tabs amlodipine 5 mg tablet 5 mg PO DAILY #90 tabs 02/01/25 bisoprolol fumarate 5 mg tablet See Rx Instructions .Route 02/01/25 .COMPLEX #90 tabs blood-glucose sensor (Dexcom G7 #3 ea 02/01/25 Sensor device) lisinopril 40 mg tablet 40 mg PO DAILY High blood pressure 02/01/25 #90 tabs Lantus Solostar U-100 Insulin 100 See Rx Instructions .Route 03/14/25 unit/mL (3 mL) subcutaneous pen .COMPLEX #15 mL (insulin glargine) methocarbamol 500 mg tablet 500 mg PO HS #30 tabs 03/23/25 pregabalin 75 mg capsule (Lyrica) 75 mg PO BID #60 caps 03/23/25 furosemide 40 mg tablet (Lasix) 40 mg PO DAILY #30 tabs 04/20/25 spironolactone 50 mg tablet 50 mg PO BID #60 tabs 04/20/25 tirzepatide 12.5 mg/0.5 mL 12.5 mg (0.5 mL) SQ WEEKLY #2 mL 04/20/25 subcutaneous pen injector (Joseunluz mariaro) Allergies Allergy/AdvReac Type Severity Reaction Status Date / Time No Known Allergies Allergy Verified 04/20/25 11:14 [facility] Disclaimer: The information contained in this section may have been updated after the patient was seen, as this information can be updated by other users. 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 Generalized anxiety disorder Recurrent major depression resistant to treatment Social History Smoking Status: Never smoker second hand exposure: Yes alcohol intake: never substance use type: denies use and marijuana current occupational status: other Travel in the last 8 weeks?: None household members: spouse housing: house number of children: 0 current occupation: [employer] current occupational exposures/hazards: No caffeine: Yes Have you lived/traveled outside [place] in past 30 days?: No Contact w/someone who lives/traveled outside [place] past 30 days?: No Exposure to someone with infectious disease in past 14 days?: No Do you have a fever (greater than 100.4 F or 38 C)?: No Have you tested positive for COVID-19?: No Exposed to someone with COVID-19 in past 14 days?: No Do you have a sore throat?: No Do you have a cough?: No Do you have any weakness?: No Do you have any diarrhea?: No Are you experiencing any unusual bleeding?: No Do you have any muscle aches/pain?: No Do you have any abdominal pain?: No Are you experiencing loss of taste or smell?: No Other 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 Have you received the Flu Vaccine for this season: No Have you received the Pneumonia Vaccine: Yes ROS Obtained: Yes All systems reviewed & no additional complaints except as documented Physical Exam General General appearance: alert and in no apparent distress Head Head exam: atraumatic and normocephalic Eye Eye exam: Present normal appearance, PERRL and EOMI ENT ENT exam: Present normal oropharynx and normal external ear exam Neck Neck exam: Present normal inspection and full ROM Chest Chest inspection: Present normal inspection and symmetric chest wall rise; Absent tenderness Respiratory Respiratory exam: Present normal lung sounds bilaterally; Absent respiratory distress Cardiovascular Cardiovascular exam: Present regular rate and normal rhythm Abdominal Exam Abdominal exam: Present soft; Absent distention, tenderness or guarding Extremities Exam Extremities exam: Present normal inspection; Absent edema or joint swelling Back Exam Back exam: Present normal inspection; Absent tenderness Neurological Exam Neurological exam: Present alert and oriented X3; Absent motor sensory deficit Psychiatric Psychiatric exam: Present normal affect and normal mood Skin Skin exam: Present warm, dry and normal color Lymphatic Lymphatic Findings: no adenopathy Medical Decision Making Medical Records Medical records reviewed: Yes I reviewed the patient's medical records. Screening: Per USPSTF and CDC recommendations, given the prevalence of disease in our region, it is our hospital?s policy to screen for HIV and viral Hepatitis for all patients aged 18 and over and those with ongoing risk factors. Hood Inquiry Pt receiving controlled substance: No Hood was queried for this patient: No Vital Signs: 04/29/25 23:44 04/29/25 23:58 04/30/25 00:01 Temperature 98.8 F 98.8 F Temperature Source Oral Pulse Rate 94 H Pulse Rate [Right] 94 H Respiratory Rate 16 20 Blood Pressure 116/62 Blood Pressure [Right Arm] 116/62 Blood Pressure Mean [Right Arm] 80 02 Sat by Pulse Oximetry 99 97 99 Oxygen Delivery Method Room Air Room Air Room Air 04/30/25 00:22 Temperature 98.6 F Temperature Source Pulse Rate 87 Pulse Rate [Right] Respiratory Rate 18 Blood Pressure 103/59 L Blood Pressure [Right Arm] Blood Pressure Mean [Right Arm] 02 Sat by Pulse Oximetry Oxygen Delivery Method Room Air Lab Data Lab results reviewed: Yes I reviewed the patient's lab results. Lab Results 04/29/25 23:43: WBC 11.8 H, RBC 4.58, Hgb 14.3, Hct 43.6, MCV 95.2, MCH 31.2, MCHC 32.8, RDW 14.7, Plt Count 221, MPV 11.8 H, Neut % (Auto) 71.8, Lymph % (Auto) 16.3, [place] % (Auto) 6.9, Eos % (Auto) 3.8, Baso % (Auto) 0.9, Neut # (Auto) 8.5 H, Lymph # (Auto) 1.9, [place] # (Auto) 0.8, Eos # (Auto) 0.5 H, Baso # (Auto) 0.1, Sodium 134 L, Potassium 3.7, Chloride 95 L, Carbon Dioxide 31 H, Anion Gap 11.7, BUN 16, Creatinine 1.70 H, Estimated Creat Clear 41, Estimated GFR 32 L, Est GFR ( Amer) 38 L, Glucose 219 H, Calcium 9.8, Phosphorus 4.5, Magnesium 1.4 L, Total Bilirubin 0.6, AST 41 H, ALT 23, Alkaline Phosphatase 124, Troponin I < 0.01, Total Protein 8.0, Albumin 4.3, Globulin 3.7 H, Albumin/Globulin Ratio 1.2 04/29/25 23:43 04/29/25 23:43 Orders (Tests/Meds): ED MEDICATIONS Generic Name Dose Route Start Last Admin Trade Name Freq PRN Reason Stop Dose Admin Lactated Ringer's 1,000 mls @ 999 mls/hr 04/30/25 00:15 04/30/25 00:14 Lactated Ringer's 1000 Ml Bag IV 04/30/25 01:15 999 mls/hr .Q1H1M GARRICK Administration Discontinued Medications Generic Name Dose Route Start Last Admin Trade Name Freq PRN Reason Stop Dose Admin Magnesium Sulfate 2 gm in 50 mls @ 150 mls/hr 04/30/25 00:05 04/30/25 00:13 Magnesium Sulfate 2gm/50ml Premix IV 04/30/25 00:24 150 mls/hr ONCE ONE Administration Magnesium Sulfate 2 gm in 50 mls @ 150 mls/hr 04/30/25 00:06 Magnesium Sulfate 2gm/50ml Premix IV 04/30/25 00:25 ONCE ONE ORDERS Category Date Time Status CBC w/Auto Diff [Complete Blood Count Auto Diff] Stat Lab 04/29/25 23:43 Completed CMP [Comprehensive Metabolic Panel] Stat Lab 04/29/25 23:43 Completed HIV Combo Stat Lab 04/29/25 23:43 Received Hepatitis C Ab Qual. W/ RFX Stat Lab 04/29/25 23:43 Received Magnesium Stat Lab 04/29/25 23:43 Completed Phosphorous Stat Lab 04/29/25 23:43 Completed Troponin I Q3H Lab 04/29/25 23:43 Completed Troponin I Q3H Lab 04/30/25 02:45 Ordered HEART Score History (anamnesis): Slightly suspicious ECG: Normal Age: 45-65 years Risk factors: 1-2 risk factors Troponin: </= normal limit HEART Score: 2 Medical Decision Narrative: 50-year-old female with history of hemochromatosis and cirrhosis, type 2 diabetes presents for a few days of feeling faint and 1 episode of syncope this evening. Recently initiated Lasix and spironolactone for lower extremity edema. History was obtained via interactive discussion with patient. On arrival, patient is [afebrile, hemodynamically stable, satting appropriately, alert, oriented x4, GCS 15], moving all extremities spontaneously. Full physical exam performed and significant for no significant physical exam abnormalities Differential includes but is not limited to electrolyte derangement, cardiogenic syncope, vasovagal syncope, hypovolemia, trauma. Workup initiated including CBC CMP troponin EKG. I considered obtaining trauma imaging, but patient is well-appearing with normal vital signs, without tenderness or signs of trauma. She is not on blood thinners. On re-evaluation, patient [remains afebrile, HD stable.] Laboratory workup independently interpreted by me and significant for LORENZO with creatinine 1.7, up from baseline of 0.7. Hypomagnesemia with mag 1.4. Negative initial troponin.. EKG independently interpreted by me and significant for sinus rhythm, ventricular rate of 88, no significant ST elevation or T wave changes.. Given patient history, exam and workup, patient's presentation most likely represents syncope, LORENZO and electrolyte derangement secondary to recent initiation of diuretics. Patient was initiated on IV magnesium and 1 L IV fluid bolus. Interactive discussion was had with hospitalist on-call for admission. Procedures Risk/Benefits of Procedure(s) Were Explained: Yes Critical Care Critical Care Time Critical Care Time: No
[2025-04-29 23:44] VITALS: BP 116/62; PULSE 94; RESP 16; TEMP 37.1; O2SAT 99; BMI 41.3
--- OUTSIDE RECORDS SUMMARY | 2025-04-29 23:47 | XMS_ITS | Data Portability ---
Author Organization [facility] [place] [facility] ADMIN Address [address] [place] [phone] Assessment Encounter Date Assessment Date Assessment LastModified by Organization Details LastModified Time 02/09/2024 02/09/2024 Mrs. Toro is a 48 [...] discuss further treatment options. f/u 4 weeks. [email or web address] Not available 02/09/2024 14:31:11 03/31/2024 03/31/2024 Mrs. [...] resend the referral today. f/u 4 months [email or web address] Not available 03/31/2024 12:27:29 07/29/2024 07/29/2024 Mrs. [...] iron supplementation. -HCC screening: Obtain US liver ([facility]) and AFP now and q6 months -MELD [...] in the office today. f/u 6 months [email or web address] Not available 07/29/2024 14:31:12 01/19/2025 01/19/2025 Mrs. Toro is a 49 yo female with PMH of DM (on mounjaro, metformin, glipizide, lantus), depression, HTN, and incidentally identified cirrhosis after she had an EGD in 2022 that showed esophageal varices. 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 Millard. Colonoscopy with no source of bleeding at that time. Comprehensive lab workup of cirrhosis showed complex heterozygous hemochromatosis, but with iron deficiency/low ferritin, and elevated ELF score. 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 Also with complex heterozygous hemochromatosis of unclear significance. She is currently iron deficient with low ferritin. JENNIFER secondary to GAVE/extensive small bowel angioectasias.. She is prescribed oral iron by her PCP. She should be monitored closely for iron overload while on oral iron supplementation. Recent CMP and CBC with primary care performed yesterday and reviewed by me. Findings are stable. Obtain iron study, AFP and INR now ([facility]). -HCC screening: Obtain US liver ([facility]) and AFP now and q6 months. Most recent US liver on 08/04/24 showed mild cirrhosis with no focal lesion. -MELD 3.0 =7 at last appointment. Update labs now. Plan for referral for transplant evaluation with MELD 15 or greater. -Ascites: None apparent at this time. 2 g daily sodium restriction counseled. -EV: Grade 2 on 12/2023. No banding performed at that time. She is taking Propranolol for other indication. Would recommend repeat EGD at the time of her next surveillance colonoscopy. -HE: None apparent at this time -Alcohol avoidance counseled. She denies alcohol use. -Prophylaxis: Avoid NSAIDS. She may take acetaminophen not to exceed 2 grams in 24 hours. -Patient is immune to hepatitis A, and completed the hepatitis B vaccination series through our office previously. -Patient is prescribed GLP-1 agonist for weight loss and diabetes management and has had mild success with this. 2) GERD with Esophagitis: GERD [...] oral iron supplement to every other day. -Check iron study now. -Monitor closely in the setting of complex heterozygous hemochromatosis. -Consider push enteroscopy with worsening anemia. f/u 6 months [email or web address] Not available 01/19/2025 17:59:07 Plan of Treatment Reminders Order Date Submit Date Provider Last Modified By Organization Details Last Modified Time Details Appointments Establish ed Visit 15 min 2025 11:30A M Hugo Lowry PA-C Not available Not available Not available Lab PT/INR 2024 025 [email or web address] (Lab), [address] [place] [address] [address], [place], [address], 01/26/2025 11:59:39 afp (alpha-fe toprotein ) tumor marker, serum or plasma 2024 025 [email or web address] 3 [facility] (Lab), [address], [place], [address], 01/26/2025 11:59:39 iron + TIBC + ferritin, serum 2024 025 [email or web address] (Lab), [address], [place], [address], 01/26/2025 11:59:39 CMP, serum or plasma 2024 025 MANJULA [facility], [address], [address], [place], [address], 08/01/2024 16:09:43 CBC 2024 025 MANJUAL [facility], [address], [address], [place], [address], 08/01/2024 16:09:44 PT/INR 2024 025 MANJULA [facility], [address], [address], [place], [address], 08/01/2024 16:09:45 afp (alpha-fe toprotein ) tumor marker, serum or plasma 2024 025 MANJULA [facility], [address], [address], [place], [address], 08/01/2024 16:09:46 iron + TIBC + ferritin, serum 2024 025 MANJULA [facility], [address], [address], [place], [address], 08/01/2024 16:09:42 Referral pain managemen t referral 2023 024 [email or web address] 4 Chidi Tabor MD, [address] [place] [address], [address], [place], [address], 05/02/2024 08:16:07 pain managemen t referral 2023 024 [email or web address] Chidi Tabor MD, [address] [place] [address], [address], [place], [address], 02/09/2024 14:31:12 Procedures None recorded. Surgeries None recorded. Imaging US, liver 2024 025 [email or web address] 3 [facility] (Scheduling), [address], [place], [address], 02/03/2025 16:03:00 US, liver 2024 025 [facility] (Scheduling), [address], [place], [address], 08/04/2024 13:43:33 RF, small bowel follow-th rough study 2023 024 [email or web address] 4 [facility] (Scheduling), [address], [place], [address], 02/16/2024 16:01:49 Medication Orders esomepraz ole magnesium 40 mg capsule,d elayed release 2024 025 MANJULA [facility], [facility] [address] [facility], [address], [place], [address], 01/19/2025 13:28:51 esomepraz ole magnesium 40 mg capsule,d elayed release 2024 025 [email or web address] [facility], [facility] [address] [facility], [facility] [address], [place], [address], 07/29/2024 13:41:27 Patient TargetsNo targets recorded. Patient Instructions Encounter Date Encounter Id Patient Instructions Last Modified By Organization Details Last Modified Time 02/09/2024 [id number] hepatitis B vaccine: what you need to know [email or web address] Not available 02/09/2024 13:59:23 hepatitis B vaccine: care instructions [email or web address] Not available 02/09/2024 13:59:24 03/31/2024 [id number] hepatitis B vaccine: what you need to know [email or web address] Not available 03/31/2024 12:05:25 hepatitis B vaccine: care instructions Not available 03/31/2024 12:05:25 07/29/2024 [id number] hepatitis B vaccine: what you need to know [email or web address] Not available 07/29/2024 11:41:12 hepatitis B vaccine: care instructions [email or web address] Not available 07/29/2024 11:41:12 Reason for Referral Pain Management Referral for Pain of multiple joints Referring Physician: Hugo Lowry, Gastroenterology, Encounter Date: 02/09/2024 Pain Management Referral for Pain of multiple joints Referring Physician: Hugo Lowry Gastroenterology, Encounter Date: 03/31/2024 Results Created Date Observation Date Name Description Value Unit Range Abnormal Flag Note LastModifiedBy Organization Detail LastModifiedTime 07/29/1907/30/2024 FE+TI BC+FE R iron bind.cap.(TI BC) 270 ug/dL 250-45 0 normal Not Available [facility] ([facility]) [address] [facility], [place], [address], 08/01/2024 16:09:42 07/29/19 25 07/30/2024 FE+TI BC+FE R UIBC 200 ug/dL 131-42 5 normal Not Available [facility] ([facility]) [address] [place], [address], 08/01/2024 16:09:42 07/29/19 25 07/30/2024 FE+TI BC+FE R iron 70 ug/dL 27-159 normal Not Available [facility] ([facility]) [address] [place], [address], 08/01/2024 16:09:42 07/29/19 25 07/30/2024 FE+TI BC+FE R iron saturation 26 % 15-55 normal Not Available [facility] ([facility]) [address] [place], [address], 08/01/2024 16:09:42 07/29/19 25 07/30/2024 FE+TI BC+FE R ferritin 45 NG/mL 15-150 normal Not Available [facility] ([facility]) [address] [place], [address], 08/01/2024 16:09:42 07/29/19 25 07/30/2024 COMP. METAB OLIC PANEL (14) glucose 86 mg/dL 70-99 normal Not Available [facility] ([facility]) [address] [place], [address], 08/01/2024 16:09:43 07/29/19 25 07/30/2024 COMP. METAB OLIC PANEL (14) BUN 12 mg/dL 6-24 normal Not Available [facility] ([facility]) [address] [place], [address], 08/01/2024 16:09:43 07/29/19 25 07/30/2024 COMP. METAB OLIC PANEL (14) creatinine 0.95 mg/dL 0.57-1 .00 normal Not Available [facility] ([facility]) [address] [facility], [place], [address], 08/01/2024 16:09:43 07/29/19 25 07/30/2024 COMP. METAB OLIC PANEL (14) eGFR 73 mL/mi n/1.7 3 >59 normal Not Available [facility] ([facility]) [address] [facility] [place], [address], 08/01/2024 16:09:43 07/29/19 25 07/30/2024 COMP. METAB OLIC PANEL (14) BUN/creatini ne ratio 13 9-23 normal Not Available [facility] ([facility]) [address] [facility] [place], [address], 08/01/2024 16:09:43 07/29/19 25 07/30/2024 COMP. METAB OLIC PANEL (14) sodium 143 mmol/ L 134-14 4 normal Not Available [facility] ([facility]) [address] [facility], [place], [address], 08/01/2024 16:09:43 07/29/19 25 07/30/2024 COMP. METAB OLIC PANEL (14) potassium 3.8 mmol/ L 3.5-5. 2 normal Not Available [facility] ([facility]) [address] [facility] [place], [address], 08/01/2024 16:09:43 07/29/19 25 07/30/2024 COMP. METAB OLIC PANEL (14) chloride 108 mmol/ L 96-106 above high normal Not Available [facility] ([facility]) [address] [facility] [place], [address], 08/01/2024 16:09:43 07/29/19 25 07/30/2024 COMP. METAB OLIC PANEL (14) carbon dioxide, total 22 mmol/ L 20-29 normal Not Available [facility] ([facility]) [address] [facility] [place], [address], 08/01/2024 16:09:43 07/29/19 25 07/30/2024 COMP. METAB OLIC PANEL (14) calcium 9.0 mg/dL 8.7-10 .2 normal Not Available [facility] ([facility]) [address] [place], [address], 08/01/2024 16:09:43 07/29/19 25 07/30/2024 COMP. METAB OLIC PANEL (14) protein, total 6.1 g/dL 6.0-8. 5 normal Not Available [facility] ([facility]) [address] [place], [address], 08/01/2024 16:09:43 07/29/19 25 07/30/2024 COMP. METAB OLIC PANEL (14) albumin 3.7 g/dL 3.9-4. 9 below low normal Not Available [facility] ([facility]) [address] [place], [address], 08/01/2024 16:09:43 07/29/19 25 07/30/2024 COMP. METAB OLIC PANEL (14) globulin, total 2.4 g/dL 1.5-4. 5 Not Available [facility] ([facility]) [address] [place], [address], 08/01/2024 16:09:43 07/29/19 25 07/30/2024 COMP. METAB OLIC PANEL (14) bilirubin, total 0.3 mg/dL 0.0-1. 2 normal Not Available [facility] ([facility]) [address] [place], [address], 08/01/2024 16:09:43 07/29/19 25 07/30/2024 COMP. METAB OLIC PANEL (14) alkaline phosphatase 110 IU/L 44-121 normal Not Available [facility] ([facility]) [address] [place], [address], 08/01/2024 16:09:43 07/29/19 25 07/30/2024 COMP. METAB OLIC PANEL (14) AST (SGOT) 14 IU/L 0-40 normal Not Available [facility] ([facility]) [address] [facility] [place], [address], 08/01/2024 16:09:43 07/29/19 25 07/30/2024 COMP. METAB OLIC PANEL (14) ALT (SGPT) 14 IU/L 0-32 normal Not Available [facility] ([facility]) [address] [facility] [place], [address], 08/01/2024 16:09:43 07/29/19 25 07/30/2024 CBC, PLATE LET, NO DIFFE RENTI AL WBC 7.3 x10e3 /uL 3.4-10 .8 normal Not Available [facility] ([facility]) [address] [place], [address], 08/01/2024 16:09:44 07/29/19 25 07/30/2024 CBC, PLATE LET, NO DIFFE RENTI AL RBC 3.84 x10e6 /uL 3.77-5 .28 normal Not Available [facility] ([facility]) [address] [place], [address], 08/01/2024 16:09:44 07/29/1907/30/2024 CBC, PLATE LET, NO DIFFE RENTI AL hemoglobin 12.7 g/dL 11.1-1 5.9 normal Not Available [facility] ([facility]) [address] [place], [address], 08/01/2024 16:09:44 07/29/19 25 07/30/2024 CBC, PLATE LET, NO DIFFE RENTI AL hematocrit 37.9 % 34.0-4 6.6 normal Not Available [facility] ([facility]) [address] [place], [address], 08/01/2024 16:09:44 07/29/1907/30/2024 CBC, PLATE LET, NO DIFFE RENTI AL MCV 99 fL 79-97 above high normal Not Available [facility] ([facility]) [address] [facility], [place], [address], 08/01/2024 16:09:44 07/29/1907/30/2024 CBC, PLATE LET, NO DIFFE RENTI AL MCH 33.1 pg 26.6-3 3.0 above high normal Not Available [facility] ([facility]) [address] [facility], [place], [address], 08/01/2024 16:09:44 07/29/1907/30/2024 CBC, PLATE LET, NO DIFFE RENTI AL MCHC 33.5 g/dL 31.5-3 5.7 normal Not Available [facility] ([facility]) [address] [facility], [place], [address], 08/01/2024 16:09:44 07/29/1907/30/2024 CBC, PLATE LET, NO DIFFE RENTI AL RDW 13.0 % 11.7-1 5.4 Not Available [facility] ([facility]) [address] [facility], [place], [address], 08/01/2024 16:09:44 07/29/1907/30/2024 CBC, PLATE LET, NO DIFFE RENTI AL platelets 158 x10e3 /uL 150-45 0 normal Not Available [facility] ([facility]) [address] [facility], [place], [address], 08/01/2024 16:09:44 07/29/1907/30/2024 CBC, PLATE LET, NO DIFFE RENTI AL NRBC GENERAL DUTY NURSE Not Available [facility] ([facility]) [address] [facility], [place], [address], 08/01/2024 16:09:44 07/29/19 25 07/30/2024 PROTH ROMBI [...] range 2.5 - 3.5 Not Available [facility] ([facility]) [address] [place], [address], 08/01/2024 16:09:45 07/29/19 25 07/30/2024 PROTH ROMBI N TIME (PT), SERIA L prothrombin time 10.8 sec 9.1-12 .0 normal Not Available [facility] ([facility]) [address] [place], [address], 08/01/2024 16:09:45 07/29/19 25 08/01/2024 PROTH ROMBI N TIME (PT), SERIA L pdf . Not Available [facility] ([facility]) [address] [place], [address], 08/01/2024 16:09:45 07/29/1907/30/2024 AFP, SERUM , TUMOR [...] pregn ant femal es. Not Available [facility] ([facility]) [address] [place], [address], 08/01/2024 16:09:46 03/28/20 24 03/24/2024 RF, small bowel , w/ contr ast PO [facility] [address] [facility] [place] [address] Phone: Fax: Name: BETHANY HOWARD Exam Date: : [birth year] Age 49 years Gender : F Access ion: [id number] Physic norma: HUGO LOWRY Facili ty: [place] Facili ty HSV: Outpat ient Exam: SMALL [...] by: Justo Viramontes Thank you for referr ing [facility] Legall y authen ticate d by LOVELY RAMESH 03-24 16:31: 55 CC'ed Logic: Orderi ng Provid er: TAYLOR MOSHER Attend ing Provid er: TAYLOR MOSHER Admitt ing Provid er: TAYLOR HUGO [email or web address] [facility] [address] [place] [address], [place], [address], 06/23/2024 08:37:32 08/04/19 25 08/04/2024 US, liver No observ ation record ed. [facility] [address], [place], [address], 08/08/2024 15:52:21 08/04/19 25 08/04/2024 XR, chest , 2 view No observ ation record ed. [address], [place], [place], [address], 08/09/2024 08:42:44 02/10/20 25 02/09/2025 US, liver No observ ation record ed. [facility] (Scheduling) [address], [place], [address], 02/10/2025 15:54:39 Result Notes Documentation Provider Name and Address Organization Details Recorded Time Rf, Small Bowel, W/ Contrast Po : [address] [address] Name: BETHANY TORO Exam Date: 03/24/2024 : [...] Thank you for referring BETHANY TORO to [facility]. Legally authenticated by LOVELY RAMESH 2024-03-24 16:31:55 CC'ed Logic: Ordering Provider: TAYLOR MOSHER Attending Provider: TAYLOR MOSHER Admitting Provider: LION Burr [place] [address], [place] - [facility] & [place] 06/23/2024 08:37:33 Problems Name Problem SNOMED Code Status Onset Date Resolution Date Notes Provider Name and Address Organization Details Recorded Time Cirrhosis of liver 86134665 Active 2023 LION Craig [facility] [address] , [place] - [facility] & [place] 15:00:02 Anemia 435986976 [facility] 2023 [facility] [address] , [place] [facility] & [place] 15:02:34 Breath smells unpleasant 49118817 Active 2023 [address] [id number] , [place] - [facility] & [place] 23:02:52 Regurgitation of food 574664447 Active [address], [place], [address] , [place] - [facility] & [place] 4 23:02:52 Gastroesophag eal reflux disease 162706060 Active 2023 Hugo Lowry PA-C [address], [place], [address] , [facility] - [facility] & [place] 4 23:02:52 Pain of multiple joints 80135770 Active 2023 Hugo Lowry PA-C [address], [place], [address] , [facility] - [facility] & [place] 4 14:02:49 Iron deficiency anemia 05081883 Active 2024 Hugo Lowry PA-C [address] , [place], [address] , [facility] - [facility] & [place] 5 14:28:04 Angiodysplasi a of intestine 171334295 Active 2024 Hugo Lowry PA-C [address] , [place], [address] , [facility] & [place] 5 14:30:05 Problem Notes None recorded. Procedures Surgical History Date Name Laterality Status Provider Name and Address Organization Details Recorded Time 07/29/19 25 Venipuncture Gastro completed Rasheeda Lozada [facility] & [place] 07/29/2024 12:08:29 04/06/20 24 Capsule Endoscopy Application active Irena Coeie [place] - [place] [facility] & [place] 04/06/2024 09:24:33 Imaging Results None recorded. Procedure [...] Available Not Available fluoxetine 40 mg capsule 01/19 completed Not Available Not Available Not Available amoxicillin 500 mg capsule 01/19 completed Not Available Not Available Not Available methocarbam ol 500 mg tablet active Not Available Not Available Not Available buspirone 5 mg tablet 01/19 completed Not Available Not Available Not Available lamotrigine 150 mg tablet active Not Available Not Available Not Available metformin 500 mg tablet active Not Available Not Available Not Available venlafaxine ER 37.5 mg capsule,ext ended release 24 hr 12/01 completed Not Available Not Available Not Available venlafaxine ER 75 mg capsule,ext ended release 24 hr 12/01 completed Not Available Not Available Not Available trazodone 50 mg tablet 01/19 completed Not Available Not Available Not Available fluconazole 150 mg tablet 01/19 completed Not Available Not Available Not Available glipizide [...] day by oral route for 90 days. 2024 active Not Available Not Available Not Avai lable buspirone 10 mg tablet 12/01 completed Not Available Not Available Not Available hydroxyzine HCl 25 mg tablet active Not Available Not Available Not Available lisinopril 40 mg tablet active Not Available Not Available Not Available fluoxetine 20 mg capsule 01/19 completed Not Available Not Available Not Available lamotrigine 100 mg tablet 01/19 completed Not Available Not Available Not Available buspirone 15 mg tablet 01/19 completed Not Available Not Available Not Available [...] 1 SYRINGE SUBCUTANE OUSLY ONCE A WEEK 01/19 completed Not Available Not Available Not Available Mounjaro 5 mg/0.5 mL subcutaneou s pen injector INJECT 5MG SUBCUTANE OUSLY ONCE A WEEK 02/08 completed Not Available Not Available Not Available Mounjaro 10 mg/0.5 mL subcutaneou s pen injector INJECT 1 PEN SUBCUTANE OUSLY ONCE A WEEK active Not Available Not Available No t Available Mounjaro 2.5 mg/0.5 mL subcutaneou s pen injector 12/01 completed Not Available Not Available Not Available Dexcom G7 Sensor device active Not Available Not Available Not Available Vitals Date Recorded Body height Body mass index (BMI) Body weight Heart rate Heart rate Oxygen saturation Oxygen saturation in Arterial blood by Pulse oximetry Body temperature Systolic And Diastolic Provider Name and Address Organization Details Last Updated DateTime 5 172.72 cm 43.9 kg/m2 119774. 48 g 80 /min 73 /min 98 % 98 % 97.8 [degF] 128/70 mm[Hg] [facility] [place] 5 11:14:45 Date Recorded Body height Body mass index (BMI) Body weight Oxygen saturation Oxygen saturation in Arterial blood by Pulse oximetry Heart rate Heart rate Systolic And Diastolic Provider Name and Address Organization Details Last Updated DateTime 5 172.72 cm 42.1 kg/m2 095275. 45 g 99 % 99 % 71 /min 73 /min 150/94 mm[Hg] Cindy Mcginnisfarhad shane [facility] & [place] 5 13:14:58 Date Recorded Body height Body mass index (BMI) Body weight Body temperature Oxygen saturation Oxygen saturation in Arterial blood by Pulse oximetry Heart rate Heart rate Systolic And Diastolic Provider Name and Address Organization Details Last Updated DateTime 4 172.72 cm 45.1 kg/m2 394068. 42 g 98.1 [degF] 98 % 98 % 72 /min 74 /min 163/80 mm[Hg] Deepti Shlomo [facility] & [place] 4 13:27:50 Date Recorded Body height Body mass index (BMI) Body weight Body temperature Oxygen saturation Oxygen saturation in Arterial blood by Pulse oximetry Heart rate Heart rate Systolic And Diastolic Provider Name and Address Organization Details Last Updated DateTime 4 172.72 cm 43.4 kg/m2 678834. 26 g 98.1 [degF] 98 % 98 % 74 /min 71 /min 169/86 mm[Hg] Franciscoiltasvitlana Shlomo [facility] & [place] 4 11:23:45 Social History Question Answer Notes LastModified by Organizat ion Details LastModified Time Tobacco Smoking Status Never Smoker Luannsvitlana Shlomo [facility] & [place] 03/31/2024 11:25:54 What Is Your Level Of Caffeine Consumption? Heavy [email or web address] Information not available 03/31/2024 Which Illicit Or Recreational Drugs Have You Used? Marijuana [email or web address] Information not available 03/31/2024 Have You Used IV Drugs? No [email or web address] Information not available 03/31/2024 Sex: Female Functional Status Question Answer Note LastModified by Organizat ion Details LastModified Time Do you use any illicit or recreational drugs? Yes [email or web address] Information not available 03/31/2024 Do you or have you ever used any other forms of tobacco or nicotine? No [email or web address] Information not available 03/31/2024 What is your level of alcohol consumption? None [email or web address] Information not available 03/31/2024 Mental Status None recorded. Family History Nothing Reported. 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 No medical history recorded. Gynecological HistoryNo gynecological history recorded. Obstetrics History GPAL:G 0 P 0 0 0 0 Immunizations Vaccine Type Date Status Note Provider Nam e and Address Organization Details Recorded Time Hep B, adult 02/09/2024 completed Jamilyn Will is null, [place] - [facility] [place] [facility] [place] 02/09/2024 14:22:25 Hep B, adult 03/31/2024 completed Jamilyn Will is null, [place] - [facility] [place] [facility] [place] 03/31/2024 12:34:29 Hep B, adult 07/29/2024 completed Hugo Lowry PA-C [facility] [place], [address] - [facility] & [place] 07/29/2024 14:05:00 Past Encounters Encounter ID Performer Location Encounter Start Date Encounter Closed Date Diagnosis/Indication Diagnosis SNOMED-CT Code Diagnosis ICD10 Code Diagnosis IMO Codes Diagnosis Note [id number] Trena Millard MD [facility] [address] [address] 12/02/2023 10:17:47 12/02/2023 11:16:42 Breath smells unpleasant 54117419 R19.6 Regurgitation of food 10 2350031 R19.8 Gastroesop hageal reflux disease 738129571 K21.9 Screening for malignant neoplasm of colon 700219777 Z12.11 [id number] Hugo Lowry PA-C [facility] [address] [address] 12/29/2023 14:00:33 12/29/2023 15:18:34 Cirrhosis of liver 89245236 K74.60 Anemia 303844081 D64.9 Breath sme lls unpleasant 53604337 R19.6 Regurgitation of food 10 7910267 R19.8 Gastroesop hageal reflux disease 414424737 K21.9 Screening for malignant neoplasm of colon [id number] Z12.11 [id number] Hugo Lowry PA-C [facility] [place] [id number] 2 02/09/2024 13:02:52 02/09/2024 14:21:45 Cirrhosis of liver 88842659 K74.60 Anemia 053308312 D64.9 Breath sme lls unpleasant 63140237 R19.6 Regurgitation of food 10 5144204 R19.8 Gastroesop hageal reflux disease 179614259 K21.9 Screening for malignant neoplasm of colon 435250247 Z12.11 Hepatitis B non-immune 905097716 Z78.9 Administra tion of viral vaccine 07265074 Z23 Pain of mu ltiple joints 14907254 M25.50 [id number] Hugo Lowry PA-C [facility] [place] [id number] 2 03/31/2024 11:04:11 03/31/2024 12:24:54 Cirrhosis of liver 63358390 K74.60 Anemia 391619893 D64.9 Regurgitation of food 10 9228517 R19.8 Gastroesop hageal reflux disease 876492861 K21.9 Screening for malignant neoplasm of colon 866130976 Z12.11 Hepatitis B non-immune 128141159 Z78.9 Administra tion of viral vaccine 12569138 Z23 Pain of mu ltiple joints 53247074 M25.50 [id number] Hugo Lowry PA-C [facility] [address] [address] 07/29/2024 10:59:45 07/29/2024 12:04:26 Cirrhosis of liver 97739045 K74.60 Gastroesop hageal reflux disease 300422642 K21.9 Administra tion of viral vaccine 23508041 Z23 Iron defic iency anemia 50539100 D50.9 History of polyp of colon 517990850 Z86.0100 Angiodyspl stefania of intestine 935029375 K55.20 [id number] Hugo Lowry PA-C [facility] [address] [address] 01/19/2025 12:58:43 01/19/2025 13:30:20 Cirrhosis of liver 46919093 K74.60 Gastroesop hageal reflux disease 484141971 K21.9 History of polyp of colon 110616774 Z86.0100 Iron defic iency anemia 24461350 D50.9 Angiodyspl stefania of intestine 588486403 K55.20 Health Concerns Section Related Observation LastModified by Organization Detai ls LastModified Time None Recorded Concern Status LastModified by Organization Details LastModified Time None Recorded Advance Directives Directive None Recorded Payers Insurance Date Sequence Insurance Name Policy Number Policy Bella Covered Member ID Bella Member ID Guarantor Name 01/24/2025 1 [place] [id number] Bethany Toro [id number] Bethany Toro Notes Date Note Type Note Provider Name and Address Organization Details Recorded Time 02/09/2024 text/html CURRENT (02/09/24): Ms. Toro returns to the office today for follow-up regarding iron deficiency anemia and recently diagnosed compensated cirrhosis following incidental finding of esophageal varices on upper endosocpy. Recent comprehensive lab workup of potential caused of chronic liver disease showed complex heterozygous hemochromatosis (1 copy [id number], 1 copy [id number]). She remains iron deficiency and with ferritin [...] an oral iron supplement. Hugo Lowry PA-C [address], [place], [address], [facility] - [place] & [place] 02/09/2024 14:32:53 03/31/2024 text/html PREVIOUS (02/09/24): Ms. Toro returns to the office today for follow-up regarding iron deficiency anemia and recently diagnosed compensated cirrhosis following incidental finding of esophageal varices on upper endosocpy. Recent comprehensive lab workup of potential caused of chronic liver disease showed complex heterozygous hemochromatosis (1 copy [id number], 1 copy [id number]). She remains iron deficiency and with ferritin [...] time. Hugo Lowry PA-C [address], [place], [address], [facility] 03/31/2024 12:48:21 07/29/2024 text/html Ms. Toro is [...] today. Hugo Lowry PA-C [address], [place], [address], [facility] 07/29/2024 14:32:01 01/19/2025 text/html PREVIOUS (07/29/24): Ms. Toro is a very pleasant 49-year-old [...] dose of the hepatitis B vaccination today. CURRENT (01/19/25): Ms. Toro returns to the office today for follow-up regarding cirrhosis, MASH, hemochromatosis, GAVE, and GERD. She is feeling well at this time. She denies symptoms of decompensation. Her reflux symptoms have been well managed with esomeprazole twice daily. She has continued a daily oral iron supplement. She denies evidence of hematochezia or melena. Hugo Lowry PA-C [address], [place], [address], [facility] - [place] & [place] 01/19/2025 17:59:52 OBGyn Episode No OBEpisode recorded.
[2025-04-29 23:50] LABS: Hematocrit 43.6 % (37.0-47.0); Hemoglobin 14.3 g/dL (12.2-16.2); Immature Granulocytes % 0.3 %; Mean Corpuscular HGB Conc 32.8 g/dL (31.8-35.4); Mean Corpuscular Hemoglobin 31.2 pg (27.0-31.2); Mean Corpuscular Volume 95.2 fl (81-99); Nucleated Red Blood Cells % 0 %; Platelet Count 221 K/mm3 (142-424); Red Blood Count 4.58 M/mm3 (4.20-5.40); Red Cell Distribution Width-SD 51.8 fL; White Blood Count 11.8 K/mm3 (4.8-10.8)
[2025-04-29 23:58] VITALS: BP 116/62; PULSE 94; RESP 20; TEMP 37.1; O2SAT 97
[2025-04-29 23:59] LABS: Alanine Aminotransferase 23 U/L (12-78); Albumin Level 4.3 g/dl (3.5-5.0); Albumin/Globulin Ratio 1.2 (1.1-1.8); Alkaline Phosphatase 124 U/L (38-126); Anion Gap 11.7 mEq/L (5-15); Aspartate Amino Transferase 41 U/L (14-36); Bilirubin,Total 0.6 mg/dl (0.2-1.3); Blood Urea Nitrogen 16 mg/dl (7-17); Calcium 9.8 mg/dl (8.4-10.2); Carbon Dioxide 31 mmol/L (22.0-30.0); Chloride 95 mmol/L (98-107); Creatinine Clearance Estimated 41 mL/min (50-200); Creatinine,Serum 1.70 mg/dl (0.52-1.04); Estimated Glomerular Filt Rate 32 ml/min (>60); GFR (African American) 38 ML/MIN (>60); Globulin 3.7 g/dL (1.3-3.2); Glucose 219 mg/dl (74-100); Magnesium 1.4 mg/dl (1.6-2.3); Phosphorous 4.5 mg/dl (2.5-4.5); Potassium 3.7 mmoL/L (3.5-5.1); Sodium 134 mmol/L (136-145); Total Protein,Serum 8.0 g/dl (6.3-8.2)
--- NOTE | 2025-04-30 | ECG_ITS ---
APPROVED REPORT Exam: Resting ECG HR:88 bpm ECG Measurements Heart Rate 88 AXES OK 170 P 51 QRSd 108 QRS -35 QT 372 T 47 QTc 418 Conclusion SINUS RHYTHM LEFT AXIS DEVIATION [QRS AXIS < -30] LOW QRS VOLTAGE [QRS DEFLECTION < 0.5/1.0 mV IN LIMB/CHEST LEADS] POSSIBLE ANTERIOR MYOCARDIAL INFARCTION , OF INDETERMINATE AGE [30 ms Q WAVE IN V3/V4, OR R < 0.2 mV IN V4] ABNORMAL ECG UNCONFIRMED REPORT Electronically signed by : MADELINE LEONE, 05/02/2025 06:25:56
[2025-04-30 00:01] VITALS: O2SAT 99
[2025-04-30 00:12] LABS: Troponin I < 0.01 ng/ml (0.00-0.034)
[2025-04-30] MEDS: MAGNESIUM SULFATE IN WATER 2 GM/50 ML PIGGYBACK IV ×2 (00:13→02:29)
[2025-04-30] MEDS: LACTATED RINGERS 1000ML 1,000 ML 999 ML IV (00:14)
[2025-04-30 00:22] VITALS: BP 103/59; PULSE 87; RESP 18; TEMP 37; O2SAT 94
--- NOTE | 2025-04-30 00:31 | PC.NURSE ---
Report called at 0031 to NJ Padron
[2025-04-30 01:00] VITALS: BP 112/62; PULSE 81; RESP 16; TEMP 36.8; O2SAT 96; BMI 41.5
--- NOTE | 2025-04-30 01:09 | EXP.HP ---
History of Present Illness *Admission Date: 04/30/25 *Reason for visit:: Syncopal episode *History of present illness: Patient is a 50-year-old female with a past medical history significant for type 2 diabetes mellitus with peripheral neuropathy, morbid obesity, hypertension, hyperlipidemia, cirrhosis of the liver, esophageal varices, GERD, iron deficiency anemia, lumbar spondylosis arthritis/degenerative disc disease, vitamin D deficiency, cervical spondyloarthritis/degenerative disc disease with cervicalgia, anxiety, and recurrent major depression. She presents to [facility] from home due to ongoing dizziness/lightheadedness ultimately sustaining a syncopal event. Family at bedside reports patient had three separate syncopal episodes. The last syncopal episode patient ultimately to the ground. She denies injury with fall. Denies any head injury or anticoagulation. Patient states having dizziness lightheadedness over the past few days. Recently placed on spironolactone and Lasix per her primary care provider due to lower extremity edema. Reports starting this regime last week. Patient denies any change in diet, denies nausea vomiting. Emergency department workup included laboratory findings which resulted with a creatinine of 1.7 and GFR 32. Baseline creatinine approximately 0.6?0.8. Magnesium resulted at 1.4. Magnesium sulfate 2 g x 2 doses ordered while in emergency department and 1 L lactated Ringer's with significant improvement in symptoms. Troponin and twelve-lead EKG obtained and unremarkable. This case was discussed with the emergency department provider Dr. Peralta and agree to admit for further observation/treatment. Patient denies fever, chills, chest pain, shortness of breath, nausea, vomiting, diarrhea or any recent contact with sick individuals. [facility] Disclaimer: The information contained in this section may have been updated after the patient was seen, as this information can be updated by other users. 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 Generalized anxiety disorder Recurrent major depression resistant to treatment Social History (Updated 04/30/25 @ 02:23 by Mar Hendrickson RN) Smoking Status: Never smoker second hand exposure: Yes alcohol intake: never substance use type: denies use and marijuana current occupational status: employed and other Travel in the last 8 weeks?: None household members: spouse housing: house number of children: 0 current occupation: [employer] current occupational exposures/hazards: No caffeine: Yes Have you lived/traveled outside [place] in past 30 days?: No Contact w/someone who lives/traveled outside US past 30 days?: No Exposure to someone with infectious disease in past 14 days?: No Do you have a fever (greater than 100.4 F or 38 C)?: No Have you tested positive for COVID-19?: No Exposed to someone with COVID-19 in past 14 days?: No Do you have a sore throat?: No Do you have a cough?: No Do you have any weakness?: No Do you have any diarrhea?: No Are you experiencing any unusual bleeding?: No Do you have any muscle aches/pain?: No Do you have any abdominal pain?: No Are you experiencing loss of taste or smell?: No Other 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 Have you received the Flu Vaccine for this season: No Have you received the Pneumonia Vaccine: Yes Review of Systems Constitutional Constitutional: Reports as per HPI and Reports weakness Eyes Eyes: Reports system reviewed and no additional complaints, except as documented ENT Ears, Nose, Mouth, and Throat: Reports dizziness *Cardiovascular Cardiovascular: Reports leg edema *Respiratory Respiratory: Reports system reviewed and no additional complaints, except as documented *Gastrointestinal Gastrointestinal: Reports as per HPI *Genitourinary Genitourinary: Reports as per HPI *Neurologic Neurologic: Reports dizziness and Reports weakness Hematologic/Lymphatic Hematologic/Lymphatic: Reports as per HPI Meds Home Medications and Allergies Home Medications ?Medication ?Instructions ?Recorded ?Confirmed ?Type bupropion HCl 200 mg tablet,12 hr 200 mg PO DAILY 01/20/24 04/30/25 History sustained-release lamotrigine 150 mg tablet 150 mg PO DAILY 01/20/24 04/30/25 History omeprazole 40 mg capsule,delayed 40 mg PO BID 01/20/24 04/30/25 History release propranolol 10 mg tablet 10 mg PO ONCE 01/20/24 04/30/25 History metformin 500 mg tablet 1,000 mg (2 x 500 mg) PO DAILY 01/11/25 04/30/25 Rx Diabetes #180 tabs rosuvastatin 5 mg tablet 5 mg PO DAILY For cholesterol #90 01/19/25 04/30/25 Rx tabs amlodipine 5 mg tablet 5 mg PO DAILY #90 tabs 02/01/25 04/30/25 Rx blood-glucose sensor (Dexcom G7 #3 ea 02/01/25 04/30/25 Rx Sensor device) lisinopril 40 mg tablet 40 mg PO DAILY High blood pressure 02/01/25 04/30/25 Rx #90 tabs pregabalin 75 mg capsule (Lyrica) 75 mg PO BID #60 caps 03/23/25 04/30/25 Rx furosemide 40 mg tablet (Lasix) 40 mg PO DAILY #30 tabs 04/20/25 04/30/25 Rx spironolactone 50 mg tablet 50 mg PO BID #60 tabs 04/20/25 04/30/25 Rx tirzepatide 12.5 mg/0.5 mL 12.5 mg (0.5 mL) SQ WEEKLY #2 mL 04/20/25 04/30/25 Rx subcutaneous pen injector (Hill) baclofen 5 mg tablet 5 mg PO TID PRN Muscle Spasm 04/30/25 04/30/25 History bisoprolol fumarate 5 mg tablet 5 mg PO DAILY 04/30/25 04/30/25 History insulin glargine 100 unit/mL (3 50 unit SQ DAILY 04/30/25 04/30/25 History mL) subcutaneous pen (Lantus Solostar U-100 Insulin) methocarbamol 500 mg tablet 500 mg PO HS PRN Pain 04/30/25 04/30/25 History pen needle, diabetic 31 gauge x 04/30/25 04/30/25 History 09/18 (Unifine Pentips) New Prescriptions to Start Prescriptions: Allergies Allergy/AdvReac Type Severity Reaction Status Date / Time No Known Allergies Allergy Verified 04/20/25 11:14 Exam Data for Last 24 hours Vital signs and Labs for Last 24 Hours: Temp Pulse Resp BP Pulse Ox O2 Del Method 98.6 F 87 18 103/59 L 99 Room Air 04/30/25 00:22 04/30/25 00:22 04/30/25 00:22 04/30/25 00:22 04/30/25 00:01 04/30/25 00:22 Laboratory Results - last 24 hr 04/29/25 23:43: WBC 11.8 H, RBC 4.58, Hgb 14.3, Hct 43.6, MCV 95.2, MCH 31.2, MCHC 32.8, RDW 14.7, Plt Count 221, MPV 11.8 H, Neut % (Auto) 71.8, Lymph % (Auto) 16.3, Ross % (Auto) 6.9, Eos % (Auto) 3.8, Baso % (Auto) 0.9, Neut # (Auto) 8.5 H, Lymph # (Auto) 1.9, Ross # (Auto) 0.8, Eos # (Auto) 0.5 H, Baso # (Auto) 0.1, Sodium 134 L, Potassium 3.7, Chloride 95 L, Carbon Dioxide 31 H, Anion Gap 11.7, BUN 16, Creatinine 1.70 H, Estimated Creat Clear 41, Estimated GFR 32 L, Est GFR ( Amer) 38 L, Glucose 219 H, Calcium 9.8, Phosphorus 4.5, Magnesium 1.4 L, Total Bilirubin 0.6, AST 41 H, ALT 23, Alkaline Phosphatase 124, Troponin I < 0.01, Total Protein 8.0, Albumin 4.3, Globulin 3.7 H, Albumin/Globulin Ratio 1.2 I & O for Last 24 hours: Intake & Output 04/27/25 04/28/25 04/29/25 04/30/25 23:59 23:59 23:59 23:59 Intake Total 882.45 / 882.45 Balance 882.45 / 882.45 Weight 127.006 kg Constitutional Constitutional: no acute distress *Routine HEENT Exam Head: Present normocephalic Eye: Present EOMI and PERRL ENT: Present mucous membranes moist *Routine Neck Exam Neck: Present supple and full ROM *Routine Respiratory Exam Respiratory: Present normal respiratory effort *Routine Cardiovascular Exam Cardiovascular: Present RRR, Normal S1 and Normal S2 *Routine Abdominal Exam Abdominal: Present soft and normoactive bowel sounds *Routine Rectal Exam Rectal:: deferred *Routine Genitalia Exam Genitalia:: deferred *Routine Extremities Exam Extremities: Present edema (Trace pedal edema bilateral lower extremity) *Routine Skin Exam Skin: Present intact and dry *Routine Neurological Exam Neurological: Present alert, oriented X3 and normal speech Assessment and Plan *Assessment and plan (1) Syncope and collapse: Status: Acute Category: Medical Code(s): R55 - Syncope and collapse (2) LORENZO (acute kidney injury): Status: Acute Category: Medical Code(s): N17.9 - Acute kidney failure, unspecified (3) Hypomagnesemia: Status: Acute Category: Medical Code(s): E83.42 - Hypomagnesemia (4) Leucocytosis: Status: Acute Qualifiers: Leukocytosis type: unspecified Qualified Code(s): D72.829 - Elevated white blood cell count, unspecified Category: Medical Code(s): D72.829 - Elevated white blood cell count, unspecified (5) Edema: Problem Comment: This is probably related to cirrhosis of the liver. Status: Chronic Qualifiers: Edema type: localized Qualified Code(s): R60.0 - Localized edema Category: Medical Code(s): R60.9 - Edema, unspecified (6) Type 2 diabetes mellitus with peripheral neuropathy: Status: Chronic Category: Medical Code(s): E11.42 - Type 2 diabetes mellitus with diabetic polyneuropathy (7) Hypertension: Status: Chronic Qualifiers: Hypertension type: other secondary hypertension Qualified Code(s): I15.8 - Other secondary hypertension Category: Medical Code(s): I10 - Essential (primary) hypertension (8) Hyperlipidemia: Status: Chronic Qualifiers: Hyperlipidemia type: mixed hyperlipidemia Qualified Code(s): E78.2 - Mixed hyperlipidemia Category: Medical Code(s): E78.5 - Hyperlipidemia, unspecified (9) Cirrhosis due to hemochromatosis: Status: Acute Category: Medical Code(s): K74.60 - Unspecified cirrhosis of liver; E83.119 - Hemochromatosis, unspecified (10) Morbid obesity: Status: Chronic Category: Medical Code(s): E66.01 - Morbid (severe) obesity due to excess calories (11) Generalized anxiety disorder: Status: Chronic Category: Medical Code(s): F41.1 - Generalized anxiety disorder (12) Recurrent major depression resistant to treatment: Status: Chronic Category: Medical Code(s): F33.9 - Major depressive disorder, recurrent, unspecified Plan 1. LORENZO: Patient presents with mild bump in creatinine of 1.7, GFR 32. Baseline creatinine 0.6?0.8 GFR 70?80. Received 1 L LR while in the emergency department. Recently evaluated per her primary care provider Dr. Jose Dupree. Due to lower extremity edema she was started on (04/20) a trial of spironolactone 50 mg p.o. twice daily and furosemide 40 mg p.o. every morning. Hold diuretics. Resume IV fluids for hydration. Avoid nephrotoxic medication, continue to monitor renal status/labs. 2. Syncope and collapse: Patient presented with lightheadedness/dizziness noting 3 episodes of syncope. Family at bedside witnessed all 3 occurrences reporting the last patient fell to the ground. Patient and family member deny any head injury or any other injury with fall. Suspect likely cause due to recent addition of diuretics. Troponin negative, EKG unremarkable. Continue IV fluids as noted above. Fall risk, safety precautions. 3. Hypomagnesemia: Magnesium 1.4. Magnesium sulfate 2 g ordered x 2 doses per ED provider. First dose completed while in the emergency department. Continue to monitor. Magnesium recheck after final dose completed. 4. Leukocytosis: WBC 11.8, afebrile, no source of infection, suspect stress-induced leukocytosis. Continue to monitor. 5. Edema: Bilateral lower extremity edema, mild in nature. As noted above recent addition. Holding medication due to underlying LORENZO. Continue to monitor closely. 5. Type 2 diabetes mellitus: Mildly elevated glucose 219. Patient monitors glucose with Dexcom. Recent increase Mounjaro per Dr. Jose Dupree, 10 to 12.5 mg weekly. Recently evaluated on 04/20, noted to return to clinic in 2 weeks for a BMP recheck. Hemoglobin A1c noted 5.3%. Continue to monitor glucose, ACHS, add insulin sliding scale, treat per protocol. Diabetic diet. 6. Hypertension: Blood pressure stable although slightly softer blood pressure. Holding antihypertensives due to underlying LORENZO. Will continue to monitor closely. 7. Hyperlipidemia: Receiving statin therapy, prior laboratory findings 01/18 triglyceride 217, LDL 88.6, VLDL cholesterol 43, 3.9 cholesterol/HDL ratio. 8. Cirrhosis due to hemochromatosis: ALT 41, AST, alkaline phosphatase within normal limits. Continue to monitor. 9. Morbid obesity: Affects all aspects of care. Diet and exercise modification. 10. Generalized anxiety disorder/recurrent major depression: Denies any current complication with depression/anxiety. Continue home medication regime as appropriate.
--- NOTE | 2025-04-30 01:29 | PC.NURSE ---
Patient arrived to floor via wheelchair from ED at 01:28.
[2025-04-30] MEDS: 0.9 % SODIUM CHLORIDE 1000ML 1,000 ML 75 ML IV (02:25)
[2025-04-30] MEDS: humaLOG 100 UNITS/ML 10ML VIAL (SSI) SUBCUT (02:46)
[2025-04-30 03:00] VITALS: RESP 16; O2SAT 96
[2025-04-30 03:24] LABS: Hepatitis C Ab Qual. W/ RFX NEGATIVE (Negative)
[2025-04-30 03:43] LABS: Troponin I < 0.01 ng/ml (0.00-0.034)
[2025-04-30 03:48] VITALS: BP 127/65; PULSE 77; RESP 14; TEMP 36.9; O2SAT 95; BMI 41.5
--- NOTE | 2025-04-30 05:57 | PC.NURSE ---
Pt. was admitted overnight from the ED with LORENZO, syncope x 3 episodes at home, hypomagnesemia, and Leukocytosis. Pt. is alert and orientated x 4. Pt. is on room air. Upon arrival to the floor Pt. states that she feels fine no complaints. Pt. has IV fluids infusing. Pt. got 2 bags of Magnesium overnight. Pt. states that she was dizzy for a few days. Per family 3 episodes of syncope last evening. the last episode she fell on the floor. Patient denies any injury with the fall. Pt. has some mild swelling to BLE was placed on diuretics last week for the swelling . After admission and Med/Rec completed, Pt. fell asleep. Personal items and call dennison in reach, Bed in low and locked position, Safety measures in place.
[2025-04-30 06:20] LABS: Chloride 97 mmol/L (98-107); Potassium 3.2 mmoL/L (3.5-5.1); Sodium 134 mmol/L (136-145)
[2025-04-30 06:23] LABS: Anion Gap 9.2 mEq/L (5-15); Blood Urea Nitrogen 13 mg/dl (7-17); Carbon Dioxide 31 mmol/L (22.0-30.0); Creatinine Clearance Estimated 57 mL/min (50-200); Creatinine,Serum 1.20 mg/dl (0.52-1.04); Estimated Glomerular Filt Rate 48 ml/min (>60); GFR (African American) 58 ML/MIN (>60)
[2025-04-30 06:24] LABS: Calcium 9.3 mg/dl (8.4-10.2); Glucose 160 mg/dl (74-100)
[2025-04-30 07:40] VITALS: BP 116/78; PULSE 87; RESP 16; TEMP 36.8; O2SAT 97
[2025-04-30] MEDS: POTASSIUM CHLORIDE 20MEQ TAB 40 MEQ PO (10:15)
--- NOTE | 2025-04-30 10:53 | EXP.DC.SUM ---
General Admission date:: 04/30/25 Discharge date: 04/30/25 HPI HPI HPI: Patient is a 50-year-old female with a past medical history significant for type 2 diabetes mellitus with peripheral neuropathy, morbid obesity, hypertension, hyperlipidemia, cirrhosis of the liver, esophageal varices, GERD, iron deficiency anemia, lumbar spondylosis arthritis/degenerative disc disease, vitamin D deficiency, cervical spondyloarthritis/degenerative disc disease with cervicalgia, anxiety, and recurrent major depression. She presents to [facility] from home due to ongoing dizziness/lightheadedness ultimately sustaining a syncopal event. Family at bedside reports patient had three separate syncopal episodes. The last syncopal episode patient ultimately to the ground. She denies injury with fall. Denies any head injury or anticoagulation. Patient states having dizziness lightheadedness over the past few days. Recently placed on spironolactone and Lasix per her primary care provider due to lower extremity edema. Reports starting this regime last week. Patient denies any change in diet, denies nausea vomiting. Emergency department workup included laboratory findings which resulted with a creatinine of 1.7 and GFR 32. Baseline creatinine approximately 0.6?0.8. Magnesium resulted at 1.4. Magnesium sulfate 2 g x 2 doses ordered while in emergency department and 1 L lactated Ringer's with significant improvement in symptoms. Troponin and twelve-lead EKG obtained and unremarkable. This case was discussed with the emergency department provider Dr. Peralta and agree to admit for further observation/treatment. Patient denies fever, chills, chest pain, shortness of breath, nausea, vomiting, diarrhea or any recent contact with sick individuals. Hospital Course Hospital Course Hospital Course: The patient was admitted to the [facility] floor with telemetry monitoring. Gentle IV fluid resuscitation with her history of hemochromatosis and cirrhosis was provided. Her calculated MELD 3.0 = <10. Her laboratory studies were assessed and trended. Her potassium and magnesium were replaced. The patient identified improvement and requested to be discharged home. On day of discharge I am accompanied by her nurse Ofelia Mares for discharge planning. Her discharge creatinine improved to 1.2 with a baseline of 0.8. She understands the importance of follow-up with her PCP over the next several days for follow-up laboratory evaluation. Exam Data for Last 24 hours Vital signs and Labs for Last 24 Hours: Temp Pulse Resp BP Pulse Ox O2 Del Method 98.2 F 87 16 116/78 97 Room Air 04/30/25 07:40 04/30/25 07:40 04/30/25 07:40 04/30/25 07:40 04/30/25 07:40 04/30/25 10:40 Laboratory Results - last 24 hr 04/29/25 23:43: WBC 11.8 H, RBC 4.58, Hgb 14.3, Hct 43.6, MCV 95.2, MCH 31.2, MCHC 32.8, RDW 14.7, Plt Count 221, MPV 11.8 H, Neut % (Auto) 71.8, Lymph % (Auto) 16.3, Laurel % (Auto) 6.9, Eos % (Auto) 3.8, Baso % (Auto) 0.9, Neut # (Auto) 8.5 H, Lymph # (Auto) 1.9, Laurel # (Auto) 0.8, Eos # (Auto) 0.5 H, Baso # (Auto) 0.1, Sodium 134 L, Potassium 3.7, Chloride 95 L, Carbon Dioxide 31 H, Anion Gap 11.7, BUN 16, Creatinine 1.70 H, Estimated Creat Clear 41, Estimated GFR 32 L, Est GFR ( Amer) 38 L, Glucose 219 H, Calcium 9.8, Phosphorus 4.5, Magnesium 1.4 L, Total Bilirubin 0.6, AST 41 H, ALT 23, Alkaline Phosphatase 124, Troponin I < 0.01, Total Protein 8.0, Albumin 4.3, Globulin 3.7 H, Albumin/Globulin Ratio 1.2, HCV Ab KAYLA w/Rflx PCR Qn Negative, HIV Ag/Ab Combo Qual Negative 04/30/25 03:05: Troponin I < 0.01 04/30/25 05:12: Sodium 134 L, Potassium 3.2 L, Chloride 97 L, Carbon Dioxide 31 H, Anion Gap 9.2, BUN 13, Creatinine 1.20 H D, Estimated Creat Clear 57, Estimated GFR 48 L, Est GFR ( Amer) 58 L D, Glucose 160 H D, Calcium 9.3 I & O for Last 24 hours: Intake & Output 04/27/25 04/28/25 04/29/25 04/30/25 23:59 23:59 23:59 23:59 Intake Total 1220.00 / 1220.00 Output Total 500 / 500 Balance 720.00 / 720.00 Weight 127.006 kg 127.414 kg Constitutional Constitutional: no acute distress, morbidly obese, chronically ill appearing and cooperative *Routine Respiratory Exam Respiratory: Present rhonchi, normal respiratory effort and symmetric chest movement *Routine Cardiovascular Exam Cardiovascular: Present RRR *Routine Neurological Exam Neurological: Present alert, oriented X3, moving all extremities, vision grossly intact, hearing grossly intact and normal speech; Absent sensory deficit or motor deficit Routine Psychiatric Exam Psychiatric: Present cooperative Results Data Completed and Pending Labs on day of discharge: Labs from last 24 hours 04/30/25 04/30/25 04/29/25 05:12 03:05 23:43 WBC 11.8 H RBC 4.58 Hgb 14.3 Hct 43.6 MCV 95.2 MCH 31.2 MCHC 32.8 RDW 14.7 Plt Count 221 MPV 11.8 H Neut % (Auto) 71.8 Lymph % (Auto) 16.3 Laurel % (Auto) 6.9 Eos % (Auto) 3.8 Baso % (Auto) 0.9 Neut # (Auto) 8.5 H Lymph # (Auto) 1.9 Laurel # (Auto) 0.8 Eos # (Auto) 0.5 H Baso # (Auto) 0.1 Sodium 134 L 134 L Potassium 3.2 L 3.7 Chloride 97 L 95 L Carbon Dioxide 31 H 31 H Anion Gap 9.2 11.7 BUN 13 16 Creatinine 1.20 H D 1.70 H Estimated Creat Clear 57 41 Estimated GFR 48 L 32 L Est GFR ( Amer) 58 L D 38 L Glucose 160 H D 219 H Calcium 9.3 9.8 Phosphorus 4.5 Magnesium 1.4 L Total Bilirubin 0.6 AST 41 H ALT 23 Alkaline Phosphatase 124 Troponin I < 0.01 < 0.01 Total Protein 8.0 Albumin 4.3 Globulin 3.7 H Albumin/Globulin Ratio 1.2 HCV Ab KAYLA w/Rflx PCR Qn Negative HIV Ag/Ab Combo Qual Negative DS: Diagnosis Discharge Diagnosis (1) Syncope and collapse: Status: Acute Code(s): R55 - Syncope and collapse (2) LORENZO (acute kidney injury): Status: Acute Code(s): N17.9 - Acute kidney failure, unspecified (3) Hypomagnesemia: Status: Acute Code(s): E83.42 - Hypomagnesemia (4) Leucocytosis: Status: Acute Code(s): D72.829 - Elevated white blood cell count, unspecified Qualifiers: Leukocytosis type: unspecified Qualified Code(s): D72.829 - Elevated white blood cell count, unspecified (5) Edema: Status: Chronic Code(s): R60.9 - Edema, unspecified Qualifiers: Edema type: localized Qualified Code(s): R60.0 - Localized edema Problem details: This is probably related to cirrhosis of the liver. (6) Type 2 diabetes mellitus with peripheral neuropathy: Status: Chronic Code(s): E11.42 - Type 2 diabetes mellitus with diabetic polyneuropathy (7) Hypertension: Status: Chronic Code(s): I10 - Essential (primary) hypertension Qualifiers: Hypertension type: other secondary hypertension Qualified Code(s): I15.8 - Other secondary hypertension (8) Hyperlipidemia: Status: Chronic Code(s): E78.5 - Hyperlipidemia, unspecified Qualifiers: Hyperlipidemia type: mixed hyperlipidemia Qualified Code(s): E78.2 - Mixed hyperlipidemia (9) Cirrhosis due to hemochromatosis: Status: Acute Code(s): K74.60 - Unspecified cirrhosis of liver; E83.119 - Hemochromatosis, unspecified (10) Morbid obesity: Status: Chronic Code(s): E66.01 - Morbid (severe) obesity due to excess calories (11) Generalized anxiety disorder: Status: Chronic Code(s): F41.1 - Generalized anxiety disorder (12) Recurrent major depression resistant to treatment: Status: Chronic Code(s): F33.9 - Major depressive disorder, recurrent, unspecified Meds Home Medications and Allergies Home Medications ?Medication ?Instructions ?Recorded ?Confirmed ?Type bupropion HCl 200 mg tablet,12 hr 200 mg PO DAILY 01/20/24 04/30/25 History sustained-release lamotrigine 150 mg tablet 150 mg PO DAILY 01/20/24 04/30/25 History omeprazole 40 mg capsule,delayed 40 mg PO BID 01/20/24 04/30/25 History release propranolol 10 mg tablet 10 mg PO ONCE 01/20/24 04/30/25 History metformin 500 mg tablet 1,000 mg (2 x 500 mg) PO DAILY 01/11/25 04/30/25 Rx Diabetes #180 tabs rosuvastatin 5 mg tablet 5 mg PO DAILY For cholesterol #90 01/19/25 04/30/25 Rx tabs amlodipine 5 mg tablet 5 mg PO DAILY #90 tabs 02/01/25 04/30/25 Rx blood-glucose sensor (Dexcom G7 #3 ea 02/01/25 04/30/25 Rx Sensor device) lisinopril 40 mg tablet 40 mg PO DAILY High blood pressure 02/01/25 04/30/25 Rx #90 tabs pregabalin 75 mg capsule (Lyrica) 75 mg PO BID #60 caps 03/23/25 04/30/25 Rx furosemide 40 mg tablet (Lasix) 40 mg PO DAILY #30 tabs 04/20/25 04/30/25 Rx spironolactone 50 mg tablet 50 mg PO BID #60 tabs 04/20/25 04/30/25 Rx tirzepatide 12.5 mg/0.5 mL 12.5 mg (0.5 mL) SQ WEEKLY #2 mL 04/20/25 04/30/25 Rx subcutaneous pen injector (Lawrencero) baclofen 5 mg tablet 5 mg PO TID PRN Muscle Spasm 04/30/25 04/30/25 History bisoprolol fumarate 5 mg tablet 5 mg PO DAILY 04/30/25 04/30/25 History insulin glargine 100 unit/mL (3 50 unit SQ DAILY 04/30/25 04/30/25 History mL) subcutaneous pen (Lantus Solostar U-100 Insulin) methocarbamol 500 mg tablet 500 mg PO HS PRN Pain 04/30/25 04/30/25 History pen needle, diabetic 31 gauge x 04/30/25 04/30/25 History 09/18 (Unifine Pentips) New Prescriptions to Start Prescriptions: Allergies Allergy/AdvReac Type Severity Reaction Status Date / Time No Known Allergies Allergy Verified 04/20/25 11:14 Discharge Plan Disposition Patient Disposition: Home, Self-Care Condition: Fair Follow up Plan Follow up with: Jose Dupree MD [Primary Care Provider, Medical] - 1 week Prescriptions/Medication Reconciliation: Continued bupropion HCl 200 mg tablet sustained-release 12 hr 200 mg PO DAILY propranolol 10 mg tablet 10 mg PO ONCE lamotrigine 150 mg tablet 150 mg PO DAILY omeprazole 40 mg capsule,delayed release(DR/EC) 40 mg PO BID furosemide [Lasix] 40 mg tablet 40 mg PO DAILY Qty: 30 2RF spironolactone 50 mg tablet 50 mg PO BID Qty: 60 2RF Mounjaro 12.5 mg/0.5 mL pen injector 12.5 mg SQ WEEKLY Qty: 2 2RF pregabalin [Lyrica] 75 mg capsule 75 mg PO BID Qty: 60 2RF metformin 500 mg tablet 1,000 mg PO DAILY Qty: 180 1RF rosuvastatin 5 mg tablet 5 mg PO DAILY Qty: 90 1RF (DME) [employer] G7 Sensor Device See Rx Instructions .ROUTE .COMPLEX Qty: 3 3RF Dose Instruction: CHANGE EVERY 10 DAYS Rx Instructions: CHANGE EVERY 10 DAYS lisinopril 40 mg tablet 40 mg PO DAILY Qty: 90 1RF amlodipine 5 mg tablet 5 mg PO DAILY Qty: 90 1RF methocarbamol 500 mg tablet 500 mg PO HS PRN (Reason: Pain) bisoprolol fumarate 5 mg tablet 5 mg PO DAILY baclofen 5 mg tablet 5 mg PO TID PRN (Reason: Muscle Spasm) insulin glargine [Lantus Solostar U-100 Insulin] 100 unit/mL (3 mL) insulin pen 50 unit SQ DAILY (DME) pen needle, diabetic [Unifine Pentips] 31 gauge x 3/16 needle See Rx Instructions .ROUTE .COMPLEX Rx Instructions: ONCE DAILY DIRECTED Problem Reconciliation Problems Reviewed?: Yes Patient Discharge Instructions ACTIVITY: Continue current activity DIET: diabetic diet, low salt diet and cardiac Patient Instructions: Acute Kidney Injury Print Language: Brazilian Providers Primary Care Provider: Jose Dupree Admit Provider: Arturo Mclain Attending Provider: Arturo Mclain
--- NOTE | 2025-05-01 11:07 | SW/DCPLANNER ---
Spoke with patient on the phone. Patient stated that she is doing good. Patient stated that she is aware of her upcoming appointments. Patient stated that she was able to get her medicine picked up. Patient stated that she has no concerns or questions at this time. Nicolas Wade
[2025-05-01 16:07] LABS: POC Glucose,Bedside 179 gm/dL (70-110)
== END 2025-04-30 11:36 | disposition home or self-care (01) ==
LOC: ER 04-30 00:17 → 2ND 04-30 00:18
PROVIDERS: Nurse Practitioner Acute Care; Admitting Provider Internal Medicine Adolescent Medicine; Emergency Provider Emergency Medicine; PCP Internal Medicine; Visit Provider Internal Medicine Adolescent Medicine
DX: N17.9 Acute kidney failure, unspecified (principal); E83.42 Hypomagnesemia; D72.829 Elevated white blood cell count, unspecified; R60.0 Localized edema; E11.42 Type 2 diabetes mellitus with diabetic polyneuropathy; E78.2 Mixed hyperlipidemia; I15.8 Other secondary hypertension; K74.60 Unspecified cirrhosis of liver; E83.119 Hemochromatosis, unspecified; E66.01 Morbid (severe) obesity due to excess calories; F41.1 Generalized anxiety disorder; F33.9 Major depressive disorder, recurrent, unspecified; I85.10 Secondary esophageal varices without bleeding; Z68.41 Body mass index [BMI] 40.0-44.9, adult; Z79.85 Long-term (current) use of injectable non-insulin antidiabetic drugs; Z79.84 Long term (current) use of oral hypoglycemic drugs; Z79.4 Long term (current) use of insulin; Z79.899 Other long term (current) drug therapy
CPT/HCPCS: 36415; 80048; 80053; 82962; 83735; 84100; 84484; 85025; 86803; 87389; 93005; 96365; 96376; 99284; G0378; J3475; J7030; J7120

== ENCOUNTER 2025-05-02 11:40 | Day surgery (SDC) | payer BC, SELFPAY ==
[2025-05-02 11:43] VITALS: BP 126/89; PULSE 80; RESP 16; O2SAT 100; BMI 41.3
[2025-05-02] MEDS: BUPIVACAINE 0.25% 10ML INJ 25 MG IJ (12:10)
[2025-05-02] MEDS: LIDOCAINE 1% 5ML PF VIAL 5 ML (12:12)
[2025-05-02] MEDS: DEXAMETHASONE 10MG/ML 1ML VIAL 10 MG (12:13)
--- NOTE | 2025-05-02 12:15 | P.PCN_ITS ---
Procedure Date: 05/02/25 Time: 12:15 Anesthesiologist:: Que Arenas CRNA Complications:: None Pre-procedure Diagnosis:: Left sacroiliitis. Left trochanteric bursitis. Post-procedure Diagnosis:: Same. Indications for Procedure:: Patient is a very pleasant 50-year-old female who comes our clinic today for left sacroiliac joint injection of local anesthetic. Left trochanteric bursa injection of local anesthetic and steroid. Patient describes left low lumbar back pain as constant, dull, aching. Patient also reports left posterior hip pain. Left lateral hip pain. Upon examination she has extreme point tenderness in both areas. She rates her pain 8/10. Procedure Details:: Procedure: Left sacroiliac injection under fluoroscopy Informed consent was obtained and the risk and benefits of the procedure were explained to the patient.~ The patient was taken to the procedure room and noninvasive monitors were placed including noninvasive blood pressure cuff and pulse oximeter.~ The patient was placed prone on the procedure table.~ The~ left hip was cleansed using Betadine as a cleansing solution.~ C-arm fluorosocpy was used to view the left SI joint.~ The skin and subcutaneous tissues were anesthetized using Lidocaine 1.5% and a 25-gauge needle.~ After this, a 22-gauge spinal needle was inserted under fluoroscopic guidance into the inferior aspect of the left SI joint.~ Omnipaque dye was injected and a good spread was seen throughout the joint.~ After this, approximately 5 mL of bupivacaine 0.25% and was incrementally injected into the sacroiliac joint.~ The patient tolerated the procedure well with no complications.~ The patient was observed in the Pain Clinic for a period of 30-45 minutes, then discharged home neurologically intact.~ Procedure:Left trochanteric bursa injection under fluoroscopy We then moved to the left trochanteric bursa.~ C-arm fluoroscopy was used to view the left greater trochanter.~ The skin and subcutaneous tissues overlying the left greater trochanter were anesthetized using lidocaine, 1.5% and a 25- gauge needle.~ After this, a 22-gauge spinal needle was inserted and advanced until it contacted the left greater trochanter.~ Dye was injected and good spread was seen throughout the left trochanteric bursa. After this, approximately 5 mL of bupivacaine, 0.25% and dexamethasone 10 mg was incrementally injected into the left trochanteric bursa.~ The patient tolerated the procedure well with no complications. Plan and Disposition:: Patient was discharged without incident.
[2025-05-02 12:25] VITALS: BP 150/98; PULSE 79; RESP 18; O2SAT 96
[2025-05-02 12:27] VITALS: BP 150/98; PULSE 79; RESP 18; O2SAT 96
[2025-05-02 12:32] VITALS: BP 143/75; PULSE 80; RESP 16; O2SAT 100
== END 2025-05-02 12:32 | disposition home or self-care (01) ==
PROVIDERS: PCP Internal Medicine; Visit Provider Nurse Anesthetist, Certified Registered
DX: M46.1 Sacroiliitis, not elsewhere classified (principal); M70.62 Trochanteric bursitis, left hip; I10 Essential (primary) hypertension; E78.5 Hyperlipidemia, unspecified; K21.9 Gastro-esophageal reflux disease without esophagitis; F41.9 Anxiety disorder, unspecified; E66.9 Obesity, unspecified; F33.9 Major depressive disorder, recurrent, unspecified; E11.42 Type 2 diabetes mellitus with diabetic polyneuropathy; Z68.41 Body mass index [BMI] 40.0-44.9, adult; Z79.4 Long term (current) use of insulin; Z79.84 Long term (current) use of oral hypoglycemic drugs; Z79.899 Other long term (current) drug therapy
CPT/HCPCS: 20610; G0260; J0665; J1100; J2003

== ENCOUNTER 2025-05-04 10:14 | Outpatient (CLI) | payer BC, SELFPAY ==
[2025-05-04 14:54] LABS: Anion Gap 12.6 mEq/L (5-15); Blood Urea Nitrogen 14 mg/dl (7-17); Calcium 8.9 mg/dl (8.4-10.2); Carbon Dioxide 25 mmol/L (22.0-30.0); Chloride 104 mmol/L (98-107); Creatinine,Serum 0.90 mg/dl (0.52-1.04); Estimated Glomerular Filt Rate 66 ml/min (>60); GFR (African American) 80 ML/MIN (>60); Glucose 100 mg/dl (74-100); Magnesium 1.5 mg/dl (1.6-2.3); Potassium 3.6 mmoL/L (3.5-5.1); Sodium 138 mmol/L (136-145)
--- OUTSIDE RECORDS SUMMARY | 2025-05-08 10:21 | XMS_ITS | Data Portability ---
Author Organization [facility] - [place] [facility] ADMIN Address [address] [place] [id number] Assessment Encounter Date Assessment Date Assessment LastModified [...] discuss further treatment options. f/u 4 weeks. [email or web address] Not available 02/09/2024 14:31:11 03/31/2024 03/31/2024 Mrs. [...] resend the referral today. f/u 4 months [email or web address] Not available 03/31/2024 12:27:29 07/29/2024 07/29/2024 Mrs. [...] iron supplementation. -HCC screening: Obtain US liver ([facility]) and AFP now and q6 months [...] in the office today. f/u 6 months Not available 07/29/2024 14:31:12 01/19/2025 01/19/2025 Mrs. [...] Obtain iron study, AFP and INR now ([facility]). -HCC screening: Obtain US liver ([facility]) and AFP now and q6 months. Most [...] enteroscopy with worsening anemia. f/u 6 months [email or web address] Not available 01/19/2025 17:59:07 Plan of Treatment Reminders Order Date Submit Date Provider Last Modified By Organization Details Last Modified Time Details Appointments Establish ed Visit 15 min 2025 11:30A M Hugo Lowry PA-C Not available Not available Not available Lab [email or web address] 3 [facility] (Lab), [address] [place] [address] [address], [place], [address], 01/26/2025 11:59:39 afp (alpha-fe toprotein ) tumor marker, serum or plasma 2024 025 [email or web address] 3 [facility] (Lab), [address], [place], [address], 01/26/2025 11:59:39 iron + TIBC + ferritin, serum 2024 025 [email or web address] 3 [facility] (Lab), [address], [place], [address], 01/26/2025 11:59:39 CMP, serum or plasma 2024 025 MANJULA [facility], [address], [address], [place], [address], 08/01/2024 16:09:43 CBC 2024 025 MANJULA [facility], [address], [address], [place], [address], 08/01/2024 16:09:44 PT/INR 2024 025 MANJULA [facility], [address], [address], [place], [address], 08/01/2024 16:09:45 afp (alpha-fe toprotein ) tumor marker, serum or plasma 2024 025 MANJULA [facility], [address], [address], [place], [address], 08/01/2024 16:09:46 iron + TIBC + ferritin, serum 2024 025 MANJULA [facility], [address], [address], [place], [address], 08/01/2024 16:09:42 Referral pain managemen t referral 2023 024 [email or web address] 4 Chidi Tabor MD, [address] [place] [address], [address], [place], [address], 05/02/2024 08:16:07 pain managemen t referral 2023 024 [email or web address] Chidi Tabor MD, [address] [place] [address], [address], [place], [address], 02/09/2024 14:31:12 Procedures None recorded. Surgeries None recorded. Imaging US, liver 2024 025 [email or web address] 3 [facility] (Scheduling), [address], [place], [address], 02/03/2025 16:03:00 US, liver 2024 025 [facility] (Scheduling), [address], [place], [address], 08/04/2024 13:43:33 RF, small bowel follow-th rough study 2023 024 [email or web address] 4 [facility] (Scheduling), [address], [place], [address], 02/16/2024 16:01:49 Medication Orders esomepraz ole magnesium 40 mg capsule,d elayed release 2024 025 MANJULA [facility], [address], [place], [address], 01/19/2025 13:28:51 esomepraz ole magnesium 40 mg capsule,d elayed release 2024 025 [email or web address] [facility], [address], [place], [address], 07/29/2024 13:41:27 Patient TargetsNo targets recorded. Patient Instructions Encounter Date Encounter Id Patient Instructions Last Modified By Organization Details Last Modified Time 02/09/2024 [id number] hepatitis B vaccine: what you need to know Not available 02/09/2024 13:59:23 hepatitis B vaccine: care instructions [email or web address] Not available 02/09/2024 13:59:24 03/31/2024 [id number] hepatitis B vaccine: what you need to know [email or web address] Not available 03/31/2024 12:05:25 hepatitis B vaccine: care instructions [email or web address] Not available 03/31/2024 12:05:25 07/29/2024 [id number] hepatitis B vaccine: what you need to know [email or web address] Not available 07/29/2024 11:41:12 hepatitis B vaccine: care instructions [email or web address] Not available 07/29/2024 11:41:12 Reason for Referral [...] ug/dL 250-45 0 normal Not Available [facility] ([facility]) [address] [facility], [place], [address], 08/01/2024 16:09:42 07/29/19 25 07/30/2024 FE+TI BC+FE R UIBC 200 ug/dL 131-42 5 normal Not Available [facility] ([facility]) [address] [place], [address], 08/01/2024 16:09:42 07/29/19 25 07/30/2024 FE+TI BC+FE R iron 70 ug/dL 27-159 normal Not Available [facility] ([facility]) [address] [place], [address], 08/01/2024 16:09:42 07/29/19 25 07/30/2024 FE+TI BC+FE R iron saturation 26 % 15-55 normal Not Available [facility] ([facility]) [address] [place], [address], 08/01/2024 16:09:42 07/29/19 25 07/30/2024 FE+TI BC+FE R ferritin 45 NG/mL 15-150 normal Not Available [facility] ([facility]) [address] [place], [address], 08/01/2024 16:09:42 07/29/19 25 07/30/2024 COMP. METAB OLIC PANEL (14) glucose 86 mg/dL 70-99 normal Not Available [facility] ([facility]) [address] [place], [address], 08/01/2024 16:09:43 07/29/19 25 07/30/2024 COMP. METAB OLIC PANEL (14) BUN 12 mg/dL 6-24 normal Not Available [facility] ([facility]) [address] [place], [address], 08/01/2024 16:09:43 07/29/19 25 07/30/2024 COMP. METAB OLIC PANEL (14) creatinine 0.95 mg/dL 0.57-1 .00 normal Not Available [facility] ([facility]) [address] [facility], [place], [address], 08/01/2024 16:09:43 07/29/19 25 07/30/2024 COMP. METAB OLIC PANEL (14) eGFR 73 mL/mi n/1.7 3 >59 normal Not Available [facility] ([facility]) [address] [facility] [place], [address], 08/01/2024 16:09:43 07/29/19 25 07/30/2024 COMP. METAB OLIC PANEL (14) BUN/creatini ne ratio 13 9-23 normal Not Available [facility] ([facility]) [address] [facility] [place], [address], 08/01/2024 16:09:43 07/29/19 25 07/30/2024 COMP. METAB OLIC PANEL (14) sodium 143 mmol/ L 134-14 4 normal Not Available [facility] ([facility]) [address] [facility], [place], [address], 08/01/2024 16:09:43 07/29/19 25 07/30/2024 COMP. METAB OLIC PANEL (14) potassium 3.8 mmol/ L 3.5-5. 2 normal Not Available [facility] ([facility]) [address] [facility] [place], [address], 08/01/2024 16:09:43 07/29/19 25 07/30/2024 COMP. METAB OLIC PANEL (14) chloride 108 mmol/ L 96-106 above high normal Not Available [facility] ([facility]) [address] [facility] [place], [address], 08/01/2024 16:09:43 07/29/19 25 07/30/2024 COMP. METAB OLIC PANEL (14) carbon dioxide, total 22 mmol/ L 20-29 normal Not Available [facility] ([facility]) [address] [facility] [place], [address], 08/01/2024 16:09:43 07/29/19 25 07/30/2024 COMP. METAB OLIC PANEL (14) calcium 9.0 mg/dL 8.7-10 .2 normal Not Available [facility] ([facility]) [address] [place], [address], 08/01/2024 16:09:43 07/29/19 25 07/30/2024 COMP. METAB OLIC PANEL (14) protein, total 6.1 g/dL 6.0-8. 5 normal Not Available [facility] ([facility]) [address] [place], [address], 08/01/2024 16:09:43 07/29/19 25 07/30/2024 COMP. METAB OLIC PANEL (14) albumin 3.7 g/dL 3.9-4. 9 below low normal Not Available [facility] ([facility]) [address] [place], [address], 08/01/2024 16:09:43 07/29/19 25 07/30/2024 COMP. METAB OLIC PANEL (14) globulin, total 2.4 g/dL 1.5-4. 5 Not Available [facility] ([facility]) [address] [place], [address], 08/01/2024 16:09:43 07/29/19 25 07/30/2024 COMP. METAB OLIC PANEL (14) bilirubin, total 0.3 mg/dL 0.0-1. 2 normal Not Available [facility] ([facility]) [address] [place], [address], 08/01/2024 16:09:43 07/29/19 25 07/30/2024 COMP. METAB OLIC PANEL (14) alkaline phosphatase 110 IU/L 44-121 normal Not Available [facility] ([facility]) [address] [place], [address], 08/01/2024 16:09:43 07/29/19 25 07/30/2024 COMP. METAB OLIC PANEL (14) AST (SGOT) 14 IU/L 0-40 normal Not Available [facility] ([facility]) [address] [facility] [place], [address], 08/01/2024 16:09:43 07/29/19 25 07/30/2024 COMP. METAB OLIC PANEL (14) ALT (SGPT) 14 IU/L 0-32 normal Not Available [facility] ([facility]) [address] [facility] [place], [address], 08/01/2024 16:09:43 07/29/19 25 07/30/2024 CBC, PLATE LET, NO DIFFE RENTI AL WBC 7.3 x10e3 /uL 3.4-10 .8 normal Not Available [facility] ([facility]) [address] [place], [address], 08/01/2024 16:09:44 07/29/19 25 07/30/2024 CBC, PLATE LET, NO DIFFE RENTI AL RBC 3.84 x10e6 /uL 3.77-5 .28 normal Not Available [facility] ([facility]) [address] [place], [address], 08/01/2024 16:09:44 07/29/1907/30/2024 CBC, PLATE LET, NO DIFFE RENTI AL hemoglobin 12.7 g/dL 11.1-1 5.9 normal Not Available [facility] ([facility]) [address] [place], [address], 08/01/2024 16:09:44 07/29/19 25 07/30/2024 CBC, PLATE LET, NO DIFFE RENTI AL hematocrit 37.9 % 34.0-4 6.6 normal Not Available [facility] ([facility]) [address] [place], [address], 08/01/2024 16:09:44 07/29/1907/30/2024 CBC, PLATE LET, NO DIFFE RENTI AL MCV 99 fL 79-97 above high normal Not Available [facility] ([facility]) [address] [facility], [place], [address], 08/01/2024 16:09:44 07/29/1907/30/2024 CBC, PLATE LET, NO DIFFE RENTI AL MCH 33.1 pg 26.6-3 3.0 above high normal Not Available [facility] ([facility]) [address] [facility], [place], [address], 08/01/2024 16:09:44 07/29/1907/30/2024 CBC, PLATE LET, NO DIFFE RENTI AL MCHC 33.5 g/dL 31.5-3 5.7 normal Not Available [facility] ([facility]) [address] [facility], [place], [address], 08/01/2024 16:09:44 07/29/1907/30/2024 CBC, PLATE LET, NO DIFFE RENTI AL RDW 13.0 % 11.7-1 5.4 Not Available [facility] ([facility]) [address] [facility], [place], [address], 08/01/2024 16:09:44 07/29/1907/30/2024 CBC, PLATE LET, NO DIFFE RENTI AL platelets 158 x10e3 /uL 150-45 0 normal Not Available [facility] ([facility]) [address] [facility], [place], [address], 08/01/2024 16:09:44 07/29/1907/30/2024 CBC, PLATE LET, NO DIFFE RENTI AL NRBC HAT LINING PASTER Not Available [facility] ([facility]) [address] [facility], [place], [address], 08/01/2024 16:09:44 07/29/19 25 07/30/2024 PROTH ROMBI [...] range 2.5 - 3.5 Not Available [facility] ([facility]) [address] [place], [address], 08/01/2024 16:09:45 07/29/19 25 07/30/2024 PROTH ROMBI N TIME (PT), SERIA L prothrombin time 10.8 sec 9.1-12 .0 normal Not Available [facility] ([facility]) [address] [place], [address], 08/01/2024 16:09:45 07/29/19 25 08/01/2024 PROTH ROMBI N TIME (PT), SERIA L pdf . Not Available [facility] ([facility]) [address] [place], [address], 08/01/2024 16:09:45 07/29/1907/30/2024 AFP, SERUM , TUMOR [...] pregn ant femal es. Not Available [facility] ([facility]) [address] [place], [address], 08/01/2024 16:09:46 03/28/20 24 03/24/2024 RF, small bowel , w/ contr ast PO [facility] [address] [place] [address] Phone: Fax: Name: BETHANY HOWARD Exam Date: : [birth year] Age 49 years Gender : F Access ion: [id number] Physic norma: HUGO LOWRY [facility] [facility] [place] Facili ty HSV: Outpat ient Exam: [...] you for referr ing [facility] Legall y authen ticate d by LOVELY RAMESH 03-24 16:31: 55 CC'ed Logic: Orderi ng Provid er: TAYLOR MOSHER Attend ing Provid er: TAYLOR MOSHER Admitt ing Provid er: TAYLOR HUGO [email or web address] [facility] - Physical Therapy [address] [place] [address], [place], [address], 06/23/2024 08:37:32 08/04/19 25 08/04/2024 US, liver No observ ation record ed. [facility] [address], [place], [address], 08/08/2024 15:52:21 08/04/19 25 08/04/2024 XR, chest , 2 view No observ ation record ed. [address], [place], [place], [address], 08/09/2024 08:42:44 02/10/20 25 02/09/2025 US, liver No observ ation record ed. [facility] (Scheduling) [address], [place], [address], 02/10/2025 15:54:39 Result Notes Documentation Provider Name and Address Organization Details Recorded Time Rf, Small Bowel, W/ Contrast Po : [address] [address] Name: BETHANY TORO Exam Date: 03/24/2024 : 1975 Age 49 years Gender: F Physician: HUGO LOWRY Facility: [facility] Facility HSV: Outpatient Exam: SMALL BOWEL SERIES [...] Thank you for referring BETHANY TORO to [facility]. Legally authenticated by LOVELY RAMESH 2024-03-24 16:31:55 CC'ed Logic: Ordering Provider: TAYLOR MOSHER Attending Provider: TAYLOR MOSHRE Admitting Provider: LION Burr [place] [address], [place] - [facility] & [place] 06/23/2024 08:37:33 Problems Name Problem SNOMED Code Status Onset Date Resolution Date Notes Provider Name and Address Organization Details Recorded Time Cirrhosis of liver 23273478 Active 2023 LION Craig [facility] [address] , [place] [facility] [place] 15:00:02 Anemia 964525717 Active 2023 [facility] [address] , [place] [facility] [place] 15:02:34 Breath smells unpleasant 46901896 Active 2023 L[address] [address] , [place] [facility] [place] 23:02:52 Regurgitation of food 125281292 Active [address], [place], [address] , [place] [facility] [place] 4 23:02:52 Gastroesophag eal reflux disease 653518857 Active 2023 Hugo Lowry PA-C [address], [place], [address] , [facility] - [facility] [place] 4 23:02:52 Pain of multiple joints 19469973 Active 2023 Hugo Lowry PA-C [address], [place], [address] , [facility] - [facility] [place] 4 14:02:49 Iron deficiency anemia 94490199 Active 2024 Hugo Lowry PA-C [address] , [place], [address] , [facility] - [facility] [place] 5 14:28:04 Angiodysplasi a of intestine 772010471 Active 2024 Hugo Lowry PA-C [address] , [place], [address] , [facility] [place] 5 14:30:05 Problem Notes None recorded. Procedures Surgical History Date Name Laterality Status Provider Name and Address Organization Details Recorded Time 07/29/19 25 Venipuncture Gastro completed Rasheeda Lozada [facility] & [place] 07/29/2024 12:08:29 04/06/20 24 Capsule Endoscopy Application active Irena Coeie [place] - [place] [facility] [place] 04/06/2024 09:24:33 Imaging Results None recorded. Procedure [...] Updated DateTime 5 172.72 cm 43.9 kg/m2 016401. 48 g 80 /min 73 /min 98 % 98 % 97.8 [degF] 128/70 mm[Hg] [facility] [place] 5 11:14:45 Date Recorded Body height Body mass index (BMI) Body weight Oxygen saturation Oxygen saturation in Arterial blood by Pulse oximetry Heart rate Heart rate Systolic And Diastolic Provider Name and Address Organization Details Last Updated DateTime 5 172.72 cm 42.1 kg/m2 717804. 45 g 99 % 99 % 71 /min 73 /min 150/94 mm[Hg] Cindy Mcginnisfarhad shane [facility] & [place] 5 13:14:58 Date Recorded Body height Body mass index (BMI) Body weight Body temperature Oxygen saturation Oxygen saturation in Arterial blood by Pulse oximetry Heart rate Heart rate Systolic And Diastolic Provider Name and Address Organization Details Last Updated DateTime 4 172.72 cm 45.1 kg/m2 912600. 42 g 98.1 [degF] 98 % 98 % 72 /min 74 /min 163/80 mm[Hg] Deepti Shlomo [facility] & [place] 4 13:27:50 Date Recorded Body height Body mass index (BMI) Body weight Body temperature Oxygen saturation Oxygen saturation in Arterial blood by Pulse oximetry Heart rate Heart rate Systolic And Diastolic Provider Name and Address Organization Details Last Updated DateTime 4 172.72 cm 43.4 kg/m2 015562. 26 g 98.1 [degF] 98 % 98 % 74 /min 71 /min 169/86 mm[Hg] Franciscolitasvitlana Shlomo [facility] & [place] 4 11:23:45 Social History Question Answer Notes LastModified by Organizat ion Details LastModified Time Tobacco Smoking Status Never Smoker Luannsvitlana Shlomo [facility] & [place] 03/31/2024 11:25:54 What Is Your Level Of Caffeine Consumption? Heavy Information not available 03/31/2024 Which Illicit Or Recreational Drugs Have You Used? Marijuana Information not available 03/31/2024 Have You Used IV Drugs? No [email or web address] Information not available 03/31/2024 Sex: Female Functional Status Question Answer Note LastModified by Organizat ion Details LastModified Time Do you use any illicit or recreational drugs? Yes [email or web address] Information not available 03/31/2024 Do you or have you ever used any other forms of tobacco or nicotine? No Information not available 03/31/2024 What is your level of alcohol consumption? None [email or web address] Information not available 03/31/2024 Mental Status None recorded. Family History Nothing Reported. 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 No medical history recorded. Gynecological HistoryNo gynecological history recorded. Obstetrics History GPAL:G 0 P 0 0 0 0 Immunizations Vaccine Type Date Status Note Provider Nam e and Address Organization Details Recorded Time Hep B, adult 02/09/2024 completed Jamilyn Will is null, [place] [facility] [place] [facility] [place] 02/09/2024 14:22:25 Hep B, adult 03/31/2024 completed Jamilyn Will is null, [place] [facility] [place] [facility] [place] 03/31/2024 12:34:29 Hep B, adult 07/29/2024 completed Hugo Lowry PA-C [facility] [place], [address] - [facility] [place] 07/29/2024 14:05:00 Past Encounters Encounter ID Performer Location Encounter Start Date Encounter Closed Date Diagnosis/Indication Diagnosis SNOMED-CT Code Diagnosis ICD10 Code Diagnosis IMO Codes Diagnosis Note [id number] Trena Millard MD [facility] [address] [address] 12/02/2023 10:17:47 12/02/2023 11:16:42 Breath smells unpleasant 22316228 R19.6 Regurgitation of food 10 6762204 R19.8 Gastroesop hageal reflux disease 373683996 K21.9 Screening for malignant neoplasm of colon 096737337 Z12.11 [id number] Hugo Lowry PA-C [facility] [address] [address] 12/29/2023 14:00:33 12/29/2023 15:18:34 Cirrhosis of liver 51043619 K74.60 Anemia 765400291 D64.9 Breath sme lls unpleasant 16730242 R19.6 Regurgitation of food 10 1539261 R19.8 Gastroesop hageal reflux disease 695599744 K21.9 Screening for malignant neoplasm of colon 868788174 Z12.11 [id number] Hugo Lowry PA-C [facility] [place] [address] 02/09/2024 13:02:52 02/09/2024 14:21:45 Cirrhosis of liver 91895017 K74.60 Anemia 405674524 D64.9 Breath sme lls unpleasant 64681049 R19.6 Regurgitation of food 10 5654585 R19.8 Gastroesop hageal reflux disease 281695326 K21.9 Screening for malignant neoplasm of colon 931266131 Z12.11 Hepatitis B non-immune 403511845 Z78.9 Administra tion of viral vaccine 18729189 Z23 Pain of mu ltiple joints 83310626 M25.50 [id number] Hugo Lowry PA-C [facility] [place] [address] 03/31/2024 11:04:11 03/31/2024 12:24:54 Cirrhosis of liver 80382645 K74.60 Anemia 628506912 D64.9 Regurgitation of food 10 4109135 R19.8 Gastroesop hageal reflux disease 154631953 K21.9 Screening for malignant neoplasm of colon 687603955 Z12.11 Hepatitis B non-immune 323312998 Z78.9 Administra tion of viral vaccine 77097786 Z23 Pain of mu ltiple joints 50357175 M25.50 [id number] Hugo Lowry PA-C [facility] [address] [address] 07/29/2024 10:59:45 07/29/2024 12:04:26 Cirrhosis of liver 29138177 K74.60 Gastroesop hageal reflux disease 428012340 K21.9 Administra tion of viral vaccine 28838887 Z23 Iron defic iency anemia 93851266 D50.9 History of polyp of colon 703425093 Z86.0100 Angiodyspl stefania of intestine 401561402 K55.20 [id number] Hugo Lowry PA-C [facility] [address] [address] 01/19/2025 12:58:43 01/19/2025 13:30:20 Cirrhosis of liver 38098895 K74.60 Gastroesop hageal reflux disease 302343780 K21.9 History of polyp of colon 210447668 Z86.0100 Iron defic iency anemia 26707568 D50.9 Angiodyspl stefania of intestine 179165859 K55.20 Health Concerns Section Related Observation LastModified by Organization Detai ls LastModified Time None Recorded Concern Status LastModified by Organization Details LastModified Time None Recorded Advance Directives Directive None Recorded Payers Insurance Date Sequence Insurance Name Policy Number Policy Bella Covered Member ID Bella Member ID Guarantor Name 01/24/2025 1 [place] [id number] Bethany Toro [id number] Bethany Toro Notes Date Note Type Note Provider Name and Address Organization Details Recorded Time 02/09/2024 text/html CURRENT (02/09/24): Ms. Toro returns to the office today for follow-up regarding iron deficiency anemia and recently diagnosed compensated cirrhosis following incidental finding of esophageal varices on upper endosocpy. Recent comprehensive lab workup of potential caused of chronic liver disease showed complex heterozygous hemochromatosis (1 copy [id number], 1 copy Ors70Hro). She remains iron deficiency and with ferritin [...] an oral iron supplement. Hugo Lowry PA-C [address], [place], [address], [facility] - [place] [facility] [place] 02/09/2024 14:32:53 03/31/2024 text/html PREVIOUS (02/09/24): Ms. Toro returns to the office today for follow-up regarding iron deficiency anemia and recently diagnosed compensated cirrhosis following incidental finding of esophageal varices on upper endosocpy. Recent comprehensive lab workup of potential caused of chronic liver disease showed complex heterozygous hemochromatosis (1 copy [id number], 1 copy Voq49Ssl). She remains iron deficiency and with ferritin [...] time. Hugo Lowry PA-C [address], [place], [address], [facility] 03/31/2024 12:48:21 07/29/2024 text/html Ms. Toro is [...] today. Hugo Lowry PA-C [address], [place], [address], [facility] 07/29/2024 14:32:01 01/19/2025 text/html PREVIOUS (07/29/24): Ms. [...] of hematochezia or melena. Hugo Lowry PA-C [address], [place], [address], [facility] - [facility] - [place] [facility] [place] 01/19/2025 17:59:52 OBGyn Episode No OBEpisode recorded.
== END 2025-05-04 23:59 ==
LOC: LAB.DROPOF 05-08 10:15
PROVIDERS: PCP Internal Medicine; Visit Provider Internal Medicine
DX: E83.42 Hypomagnesemia (principal); N17.9 Acute kidney failure, unspecified; I10 Essential (primary) hypertension; R60.9 Edema, unspecified
CPT/HCPCS: 80048; 83735

== ENCOUNTER 2025-05-30 14:11 | Outpatient (CLI) | payer BC, SELFPAY ==
[2025-05-30 13:57] LABS: Chloride 103 mmol/L (98-107); Sodium 140 mmol/L (136-145)
[2025-05-30 13:58] LABS: Potassium 4.1 mmoL/L (3.5-5.1)
[2025-05-30 14:00] LABS: Anion Gap 15.1 mEq/L (5-15); Blood Urea Nitrogen 9 mg/dl (7-17); Carbon Dioxide 26 mmol/L (22.0-30.0); Creatinine,Serum 1.00 mg/dl (0.52-1.04); Estimated Glomerular Filt Rate 59 ml/min (>60); GFR (African American) 71 ML/MIN (>60)
[2025-05-30 14:01] LABS: Calcium 8.8 mg/dl (8.4-10.2); Glucose 172 mg/dl (74-100); Magnesium 1.8 mg/dl (1.6-2.3)
== END 2025-05-30 23:59 | disposition home or self-care (01) ==
LOC: LAB.DROPOF 14:12
PROVIDERS: PCP Internal Medicine; Visit Provider Internal Medicine
DX: K74.60 Unspecified cirrhosis of liver (principal); I15.8 Other secondary hypertension; E83.42 Hypomagnesemia
CPT/HCPCS: 80048; 83735